=== PATIENT | female | born 1950 | race Caucasian/White ===

== ENCOUNTER 2023-10-12 17:41 | Inpatient (IN) ==
[2023-10-12] MEDS ORDERED: Patient's HEIGHT &/or WEIGHT Needed SCH (18:48)
--- NOTE | 2023-10-12 19:29 | Emergency Department Note ---
History of Present Illness General Chief complaint: Fall Stated complaint: FELL, LT ANKLE PAIN, HIP PAIN Time Seen by Provider: 10/12/23 19:07 History of Present Illness Maximum Pain Intensity: 4 This is a 72-year-old female that presents to the emergency department via private vehicle with complaints of "fell, left ankle pain, left hip pain". The patient notes earlier today around 4:45 PM she slipped on ice and fell. She notes pain to the left lateral hip which is minimal and significant left ankle pain. She denies striking the head or loss of consciousness. No headache or neck pain. No chest pain or abdominal pain. No back pain. Patient did take 3 Advil tablets prior to arrival. Current pain 12/01. She cannot bear weight to the left lower extremity noting the ankle pain. Home Medications Medication Instructions Recorded Confirmed Type amlodipine 5 mg tablet 5 mg PO QAM 10/12/23 10/12/23 History atenolol 50 mg tablet 50 mg PO QAM 10/12/23 10/12/23 History biotin 10 mg tablet 10 mg PO QAM 10/12/23 10/12/23 History buspirone 10 mg tablet 10 mg PO AMPM 10/12/23 10/12/23 History hydroxyzine HCl 50 mg tablet 50 mg PO BID PRN anxiety and 10/12/23 10/12/23 History insomnia ounoszdphaky-wdchkpfy-ikjhc acid 1 cap PO QAM 10/12/23 10/12/23 History 400 mcg-vitamin K 80 mcg capsule (Multi For Her 50 Plus) omega 3-osj-dnq-fish oil 1,200 mg 1 cap PO QPM 10/12/23 10/12/23 History (144 mg-216 mg) capsule (Fish Oil) peg 400-propylene glycol (PF) 0.4 1 drp ophthalmic (eye) BID PRN Dry 10/12/23 10/13/23 History %-0.3 % eye drops in a dropperette Eyes (Systane (PF)) trazodone 100 mg tablet 100 mg PO HS 10/12/23 10/12/23 History vitamins A,C,J-zpvn-gzmycf 4,296 1 cap PO QPM 10/12/23 10/12/23 History mcg-226 mg-90 mg capsule (PreserVision AREDS) calcium carbonate 500 mg calcium 500 mg PO QAM 10/13/23 10/13/23 History (1,250 mg) tablet Allergies Allergy/AdvReac Type Severity Reaction Status Date / Time No Known Allergies Allergy Unknown Verified 10/13/23 00:00 Past Med/Surg History Medical History Hypertension Sleep disorder Anxiety Surgical History History of orthopedic surgery Rotator cuff repair, wrist ORIF, hand fracture Social History Smoking Status: Former smoker Tobacco Type: Cigarettes Preferred Language: Albanian Feels Safe at Home: Yes Review of Systems A total of 10 systems reviewed and were otherwise negative Physical Exam Vital Signs Vital Signs - 24 hr 10/12/23 18:48 10/13/23 00:08 Temperature 37.2 C Temperature Source Temporal Artery Scan Pulse Rate 62 Pulse Rate [Finger] 87 Respiratory Rate 18 18 Respiratory Effort / Characteristics Non-Labored Non-Labored Spontaneous Respiratory Depth Normal Normal Respiratory Pattern Regular Blood Pressure 170/77 H Blood Pressure [Left Arm] 154/84 H Blood Pressure Mean 108 Blood Pressure Mean [Left Arm] 107 Pulse Oximetry 98 97 Oxygen Delivery Method Room Air Room Air Sepsis Recent Fever Within 48 Hours No Sepsis New/Unexplained Change in Mental Status No Sepsis Action Taken by Nursing No Action Required VITAL SIGNS - Vital signs and nursing notes were reviewed. Stable and afebrile. GENERAL -72-year-old female appearing her stated age who is in no acute distress. Communicates well with provider and answers questions appropriately. SKIN -circumferential edema to the left ankle joint. No break in the integument. No deformity. HEAD - NC/AT. EYES -no hyphema. No subconjunctival hemorrhage. LUNGS - CTA CARDIAC - RRR EXTREMITIES - No clubbing or peripheral cyanosis. No pretibial edema present. Skin as above. Patient is tender throughout the left ankle joint diffusely. Minimal left lateral hip tenderness to palpation. Left lower extremity appropriately warm well-perfused. Left dorsalis pedis pulse within normal limits. Cap refill of all toes of the left foot within normal limits. +5/5 strength noted in UE/LE bilaterally. NEUROLOGIC - Cranial nerves II through XII grossly intact. Sensory intact throughout the left lower extremity without deficit. PSYCH - A&O, and cooperates fully with examiner. Pt is very pleasant and interacts well with examiner. Course Administered Medications Discontinued Medications Ondansetron HCl (Ondansetron 4 Mg Od Tab) 4 mg PO NOW STA Stop: 10/12/23 20:57 Last Admin: 10/12/23 21:05 Dose: 4 mg Documented By: LEWIS Oxycodone HCl (Oxycodone Hcl Ir 5 Mg Tab (Immediate Release)) 5 mg PO NOW STA Stop: 10/12/23 20:57 Last Admin: 10/12/23 21:06 Dose: 5 mg Documented By: LEWIS Medical Decision Making Laboratory Data 10/13/23 00:06 10/13/23 00:06 Imaging Data My Impression: Per my interpretation: Pelvis/hip: No fx or dislocation. Tib/fib, ankle, foot: L distal fibular fracture, L medial malleolus fracture. No dislocation. MDM Narrative Patient was seen and evaluated as above in room D05. Review was performed of triage nursing notes and vital signs. I did review pertinent previous visits and patient history. After obtaining a thorough history and physical examination the above work up was performed. Patient presents to us today status post slip on ice with resultant fall. She has pain in her left hip minimally but significant pain in her left ankle. She is well-appearing and nontoxic on exam but appears to be in pain. Options of care were discussed with the patient. Several analgesic options discussed and she elected to hold off at the present time pending x-rays. X- rays were then ordered of the pelvis/left hip, tip/fib, left ankle, left foot. Per mitral rotation the left hip is without fracture or dislocation. Per review of the left lower extremity radiographs there is a left medial malleolus fracture and left distal fibular fracture. This is not an open injury. She is neurovascularly intact. Patient was amenable to oral analgesia prior to splint placement. She was given oral oxycodone for pain. She notes sometimes this makes her nauseated therefore was given oral ondansetron. She did have some relief of pain. Patient was placed in the well-padded posterior short leg splint with stirrup with good fit. She was neurovascularly intact post splint placement. Ambulatory trial was then performed with crutches/walker and unfortunately patient at this time feels that the upper extremities are weak/tired and does not feel using the crutches/walker at this time are possible. I do believe that she has an increased fall risk at the present time to try and send her home with these ambulatory devices in her current state would be potentially dangerous and result in further falls. I do believe that she would benefit from inpatient management for further assessment. Case discussed with the hospitalist service, Dr. Hayes. Please refer to further documentation regarding her stay. Formal x-ray report will be available in the a.m. Laboratory studies ordered and are pending at this time noting the admission status. GCS: 15 In the evaluation and treatment of this patient the following differential diagnoses were entertained: Fracture, dislocation, subluxation, contusion, sprain, strain, among others Impression & Plan Fall, Closed left ankle fracture Discharge Plan Visit Data Chief Complaint: Fall Stated Complaint: FELL, LT ANKLE PAIN, HIP PAIN ED Provider: Sondra Castillo ED Midlevel Provider: Kenny Go Discharge Problem: Fall, Closed left ankle fracture Patient Disposition: Admitted As Inpatient Condition: Good Forms Stand Alone Forms: My [facility] [employer] Prescriptions Prescriptions: No Action hydroxyzine HCl 50 mg tablet 50 mg PO BID PRN (Reason: anxiety and insomnia) atenolol 50 mg tablet 50 mg PO QAM amlodipine 5 mg tablet 5 mg PO QAM trazodone 100 mg tablet 100 mg PO HS buspirone 10 mg tablet 10 mg PO AMPM omega 9-fyj-qxs-fish oil [Fish Oil] 1,200 (144-216) mg Capsule 1 cap PO QPM Multi For Her 50 Plus 400-80 mcg Capsule 1 cap PO QAM PreserVision AREDS 4,296 mcg-226 mg-90 mg Capsule 1 cap PO QPM biotin 10 mg Tablet 10 mg PO QAM Systane (PF) 0.4-0.3 % Dropperette 1 drp OPHTHALMIC (EYE) BID PRN (Reason: Dry Eyes) calcium carbonate [Calcium 500] 500 mg calcium (1,250 mg) Tablet 500 mg PO QAM Referrals Referrals: Magy Valles DO [Primary Care Provider] -
--- NOTE | 2023-10-12 20:55 | Emergency Department Note ---
ED Visit Note I was consulted by the Advanced Practice Provider, Kenny Go. I performed a substantive portion of the visit. This includes aspects of: History: Patient is a 72-year-old female presenting with left ankle pain after fall from standing. Patient states that she had a mechanical fall after slipping on ice and landed on her left hip and left knee. She twisted her ankle and felt a pop. She has been unable to ambulate secondary to immense left ankle pain since the fall. Denies striking her head or loss of consciousness. MDM: - Xray of ankle shows fracture - Patient placed in short leg leg splint and ankle stirrup. Attempted nonweightbearing on crutches and then with a walker, but patient was unable to be nonweightbearing with these assistive devices. Will admit for orthopedic consultation and further evaluation and management. .
[2023-10-12] MEDS: ONDANSETRON 4 MG OD TAB PO STA (21:05)
[2023-10-12] MEDS: oxyCODONE HCL IR 5 MG TAB (IMMEDIATE RELEASE) PO STA (21:06)
[2023-10-13 00:25] LABS: Basophils # (auto) 0.07 K/uL (0.00-0.20); Basophils % (auto) 0.5 %; Eosinophils # (auto) 0.04 K/uL (0.00-0.50); Eosinophils % (auto) 0.3 %; Hematocrit (blood only) 40.9 % (37.0-47.0); Hemoglobin 13.8 g/dl (12.0-16.0); Immature Granulocytes # (auto) 0.07 K/uL (0.01-0.20); Immature Granulocytes % (auto) 0.5 %; Lymphocytes # (auto) 2.86 K/uL (1.20-3.40); Lymphocytes % (auto) 20.5 %; Mean Corpuscular Hemoglobin 30.2 pg (25.0-34.0); Mean Corpuscular Hgb Conc 33.7 g/dL (32.0-36.0); Mean Corpuscular Volume 89.5 fL (80.0-100.0); Mean Platelet Volume 9.9 fL (9.4-12.4); Monocytes # (auto) 0.73 K/uL (0.11-0.59); Monocytes % (auto) 5.2 %; Neutrophils # (auto) 10.21 K/uL (1.40-6.50); Platelet Count 357 K/uL (130-400); RDW Coefficient of Variation 14.4 % (11.5-14.5); RDW Standard Deviation 46.4 fL (36.4-46.3); Red Blood Count 4.57 M/uL (4.20-5.40); White Blood Count 13.98 K/ul (4.8-10.8)
[2023-10-13 00:43] LABS: Alanine Aminotransferase 19 U/L (7-52); Albumin Globulin Ratio 1.3 (0.9-2); Albumin Level 4.4 gm/dl (3.4-5.0); Alkaline Phosphatase 62 U/L (34-104); Anion Gap 8 (3-11); Aspartate Aminotransferase 23 U/L (13-39); BUN Creatinine Ratio 18.1 (10-20); Bilirubin,Total 0.5 mg/dl (0.2-1.0); Blood Urea Nitrogen 15 mg/dl (6-23); Calcium 10.1 mg/dl (8.6-10.3); Carbon Dioxide 25 mmol/L (21-32); Chloride 104 mmol/L (98-107); Est GFR (African American) 81.7 ml/min; Est GFR (Non-African American) 70.4 ml/min; Globulin 3.3 gm/dl (2.5-4.0); Glucose 131 mg/dl (70-99(Fasting)); Sodium 137 mmol/L (136-145); Total Protein 7.7 gm/dl (6.0-8.3)
--- NOTE | 2023-10-13 01:06 | History & Physical Report ---
Date of Service October 13, 2023 Assessment & Plan (1) Closed left ankle fracture: Plan: 72-year-old female with past medical history significant for prediabetes, hypertension, angiomyolipoma of left kidney, restless leg syndrome, depression, anxiety, s/p fall on the ice on the left side and found to have left ankle fracture. Patient states she is unsteady because she thinks she has plantar fasciitis of the left foot. States that she is prone to fall. She did not hit her head. No loss of consciousness. Currently has some headache says because she did not eat anything today. No blurred visions. No earache. No runny nose. No sore throat. No cough. No fevers. No chest pain. No shortness of breath. Currently no nausea. No abdominal pain. Normal bowel and bladder movements. Hemodynamics are stable. Closed left ankle fracture Mechanical fall S/p cast Having ambulatory dysfunction Pain control N.p.o. for now IV fluids Consult Ortho in a.m. for further recommendations Hypertension On amlodipine and atenolol Will monitor History of depression Anxiety On buspirone and trazodone Prediabetes Will follow HbA1c levels DVT prophylaxis Lovenox Disposition Medical floor Full code History of Present Illness Chief Complaint: Fall. Left ankle fracture Primary Care Provider: Magy Valles, 72-year-old female with past medical history significant for prediabetes, hypertension, angiomyolipoma of left kidney, restless leg syndrome, depression, anxiety, s/p fall on the ice on the left side and found to have left ankle fracture. Patient states she is unsteady because she thinks she has plantar fasciitis of the left foot. States that she is prone to fall. She did not hit her head. No loss of consciousness. Currently has some headache says because she did not eat anything today. No blurred visions. No earache. No runny nose. No sore throat. No cough. No fevers. No chest pain. No shortness of breath. Currently no nausea. No abdominal pain. Normal bowel and bladder movements. Hemodynamics are stable. Past medical history. As mentioned above Past surgical history. Right shoulder arthroscopy. Breast implants. Colonoscopy. EGD. Mandible surgery. Bilateral cataract removal. Social history. . Quit smoking . Smoked 0.7 pack a day for 41 years. Alcohol rarely. No drug use. Family history. Father had alcoholism. Hypertension. Cholesterol. Mother had hypertension. Alzheimer's disease. Brother has seizures. Allergies Allergy/AdvReac Type Severity Reaction Status Date / Time No Known Allergies Allergy Unknown Verified 10/13/23 00:00 Home Medications Medication Instructions Recorded Confirmed Type amlodipine 5 mg tablet 5 mg PO QAM 10/12/23 10/12/23 History atenolol 50 mg tablet 50 mg PO QAM 10/12/23 10/12/23 History biotin 10 mg tablet 10 mg PO QAM 10/12/23 10/12/23 History buspirone 10 mg tablet 10 mg PO AMPM 10/12/23 10/12/23 History hydroxyzine HCl 50 mg tablet 50 mg PO BID PRN anxiety and 10/12/23 10/12/23 History insomnia jycfhnocjjtq-cqtlsqct-nnhzn acid 1 cap PO QAM 10/12/23 10/12/23 History 400 mcg-vitamin K 80 mcg capsule (Multi For Her 50 Plus) omega 1-dmy-wtv-fish oil 1,200 mg 1 cap PO QPM 10/12/23 10/12/23 History (144 mg-216 mg) capsule (Fish Oil) peg 400-propylene glycol (PF) 0.4 1 drp ophthalmic (eye) BID PRN Dry 10/12/23 10/13/23 History %-0.3 % eye drops in a dropperette Eyes (Systane (PF)) trazodone 100 mg tablet 100 mg PO HS 10/12/23 10/12/23 History vitamins A,C,E-bufo-uaywdl 4,296 1 cap PO QPM 10/12/23 10/12/23 History mcg-226 mg-90 mg capsule (PreserVision AREDS) calcium carbonate 500 mg calcium 500 mg PO QAM 10/13/23 10/13/23 History (1,250 mg) tablet Past Med/Surg History Medical History Hypertension Sleep disorder Anxiety Surgical History History of orthopedic surgery Rotator cuff repair, wrist ORIF, hand fracture Social History Smoking Status: Former smoker Tobacco Type: Cigarettes Hx Alcohol Use: Yes Alcohol type: wine Hx Substance Use: No Preferred Language: Peruvian Silk Soaker Required: No Beliefs That Will Affect Care: None Current Living Situation: Spouse and Family Feels Safe at Home: Yes Assistive Devices: Glasses Review of Systems Review of Systems: All systems reviewed & are unremarkable except as noted in HPI & below Physical Exam Physical Exam: General- Not in distress Head- atraumatic Eyes- PERRL. ENT- oropharynx clear Neck- supple, no JVD. Lungs- clear to auscultation no wheezing or crackles Heart- regular rhythm; no murmur, no gallop. Abdomen- normal bowel sounds, soft, nontender, no distension. Extremities- Left lower extremity in cast. Neuro- alert, oriented PERRL, no facial palsy; no dysarthria; obeys simple commands. Skin- warm & dry Results & Data Results & Data Vital Signs (Past 12 Hours) Vital Signs Temp Pulse Pulse Resp BP BP Pulse Ox 10/13/23 00:08 87 18 154/84 H 97 10/12/23 18:48 37.2 C 62 18 170/77 H 98 O2 Del Method 10/13/23 00:08 Room Air 10/12/23 18:48 Room Air Diagnostic Findings Laboratory Results WBC 13.98 K/ul (4.8-10.8) H 10/13/23 00:06 RBC 4.57 M/uL (4.20-5.40) 10/13/23 00:06 Hgb 13.8 g/dl (12.0-16.0) 10/13/23 00:06 Hct 40.9 % (37.0-47.0) 10/13/23 00:06 MCV 89.5 fL (80.0-100.0) 10/13/23 00:06 MCH 30.2 pg (25.0-34.0) 10/13/23 00:06 MCHC 33.7 g/dL (32.0-36.0) 10/13/23 00:06 RDW Std Deviation 46.4 fL (36.4-46.3) H 10/13/23 00:06 RDW Coeff of Bj 14.4 % (11.5-14.5) 10/13/23 00:06 Plt Count 357 K/uL (130-400) 10/13/23 00:06 MPV 9.9 fL (9.4-12.4) 10/13/23 00:06 Immature Gran % (Auto) 0.5 % 10/13/23 00:06 Neut % (Auto) 73.0 % 10/13/23 00:06 Lymph % (Auto) 20.5 % 10/13/23 00:06 [place] % (Auto) 5.2 % 10/13/23 00:06 Eos % (Auto) 0.3 % 10/13/23 00:06 Baso % (Auto) 0.5 % 10/13/23 00:06 Neut # (Auto) 10.21 K/uL (1.40-6.50) H 10/13/23 00:06 Lymph # (Auto) 2.86 K/uL (1.20-3.40) 10/13/23 00:06 [place] # (Auto) 0.73 K/uL (0.11-0.59) H 10/13/23 00:06 Eos # (Auto) 0.04 K/uL (0.00-0.50) 10/13/23 00:06 Baso # (Auto) 0.07 K/uL (0.00-0.20) 10/13/23 00:06 Immature Gran # (Auto) 0.07 K/uL (0.01-0.20) 10/13/23 00:06 Sodium 137 mmol/L (136-145) 10/13/23 00:06 Potassium 4.0 mmol/L (3.5-5.1) 10/13/23 00:06 Chloride 104 mmol/L (98-107) 10/13/23 00:06 Carbon Dioxide 25 mmol/L (21-32) 10/13/23 00:06 Anion Gap 8 (3-11) 10/13/23 00:06 BUN 15 mg/dl (6-23) 10/13/23 00:06 Creatinine 0.83 mg/dl (0.6-1.2) 10/13/23 00:06 Est Cr Clr Drug Dosing Not Reportable 10/13/23 00:06 Est GFR ( Amer) 81.7 ml/min 10/13/23 00:06 Est GFR (Non-Af Amer) 70.4 ml/min 10/13/23 00:06 BUN/Creatinine Ratio 18.1 (10-20) 10/13/23 00:06 Glucose 131 mg/dl (70-99(Fasting)) H 10/13/23 00:06 Calcium 10.1 mg/dl (8.6-10.3) 10/13/23 00:06 Total Bilirubin 0.5 mg/dl (0.2-1.0) 10/13/23 00:06 AST 23 U/L (13-39) 10/13/23 00:06 ALT 19 U/L (7-52) 10/13/23 00:06 Alkaline Phosphatase 62 U/L (34-104) 10/13/23 00:06 Total Protein 7.7 gm/dl (6.0-8.3) 10/13/23 00:06 Albumin 4.4 gm/dl (3.4-5.0) 10/13/23 00:06 Globulin 3.3 gm/dl (2.5-4.0) 10/13/23 00:06 Albumin/Globulin Ratio 1.3 (0.9-2) 10/13/23 00:06 Code Status & VTE Plan VTE Prophylaxis Plan VTE Prophylaxis will be ordered: Yes
[2023-10-13] MEDS: HYDROmorphone INJ 0.5 MG/0.5 ML SYR IV STA (01:31)
[2023-10-13] MEDS ORDERED: POLYETHYLENE (MIRALAX) 17 GM PACK PO PRN (02:31)
[2023-10-13] MEDS ORDERED: ARTIFICIAL TEARS OP PRN (02:52)
[2023-10-13] MEDS: SODIUM CHLORIDE 0.9% 1,000 ML IV SCH (05:18)
[2023-10-13] MEDS: ENOXAPARIN INJ 40 MG/0.4 ML SYR SQ SCH (06:14)
--- NOTE | 2023-10-13 06:54 | XRay Report ---
XR hip LT 2V w pelvis HISTORY: 72 years-old Female Fall, L hip pain acute pain in the pelvis and left hip status post fall COMPARISON: None TECHNIQUE: AP view the pelvis with 2 views of the left hip FINDINGS: There is mild osteoarthritis of the hips. No acute fracture, dislocation or avascular necrosis. Unrem arkable soft tissues. IMPRESSION: No acute fracture or dislocation. ACT 112: Negative or not required by law. The above report was generated using voice recognition software. It may contain grammatical, syntax o r spelling errors. Electronically signed by: Scot Cordoba M.D. 10/13/2023 6:53 AM
--- NOTE | 2023-10-13 06:59 | XRay Report ---
XR ankle LT min 3V routine, XR tibia fibula LT 2V, XR foot LT min 3V routine HISTORY: 72 years-old Female Fall, L lower extremity pain/injury acute pain of the foot, ankle, left /tibia and fibula status post fall COMPARISON: None TECHNIQUE: 2 views of the left ankle with 2 views of the left foot and 2 views of the left tibia and fibula. FINDINGS: ANKLE: There is acute comminuted distal fibular fracture which demonstrates mild apex medial angulation with 7 mm lateral displacement. There is an acute minimally displaced medial malleolar fracture. Moderate soft tissue swelling. Mild widening of the distal tibiofibular syndesmosis. Demineralized appearance of the bones. Limited exam secondary to positioning. FOOT: Acute nondisplaced fracture which is possibly incomplete involving the proximal metaphyseal aspect of the third metatarsal. Demineralized appearance of the bones with mostly mild multifocal osteoarthrit is. Subtle dorsal cortical fracturing of the talar neck. TIBIA/FIBULA: No additional acute fracture or dislocation. IMPRESSION: 1. Acute distal fibular and medial malleolar fractures as above. 2. Acute nondisplaced third metatarsal fracture. 3. Subtle dorsal cortical fracture of the talar neck. ACT 112: Negative or not required by law. The above report was generated using voice recognition software. It may contain grammatical, syntax o r spelling errors. Electronically signed by: Scot Cordoba M.D. 10/13/2023 6:57 AM
[2023-10-13 07:52] LABS: Basophils # (auto) 0.08 K/uL (0.00-0.20); Basophils % (auto) 0.9 %; Eosinophils # (auto) 0.15 K/uL (0.00-0.50); Eosinophils % (auto) 1.7 %; Hematocrit (blood only) 35.7 % (37.0-47.0); Hemoglobin 12.1 g/dl (12.0-16.0); Immature Granulocytes # (auto) 0.02 K/uL (0.01-0.20); Immature Granulocytes % (auto) 0.2 %; Lymphocytes # (auto) 2.86 K/uL (1.20-3.40); Lymphocytes % (auto) 32.5 %; Mean Corpuscular Hemoglobin 30.2 pg (25.0-34.0); Mean Corpuscular Hgb Conc 33.9 g/dL (32.0-36.0); Monocytes # (auto) 0.72 K/uL (0.11-0.59); Monocytes % (auto) 8.2 %; Neutrophils # (auto) 4.97 K/uL (1.40-6.50); Neutrophils % (auto) 56.5 %; Platelet Count 293 K/uL (130-400); RDW Coefficient of Variation 14.3 % (11.5-14.5); RDW Standard Deviation 46.6 fL (36.4-46.3); Red Blood Count 4.01 M/uL (4.20-5.40)
--- OUTSIDE RECORDS SUMMARY | 2023-10-13 07:54 | External Medical Summary | Summary of Care ---
Author Name Unknown Organization [facility] Address [address] [facility] [address] Phone [phone] Care Team Providers Care Sharepoint Developer Name Role Phone Magy Valles DO Primary Care Provider [phone] Reason for Visit * Reason Onset Date Comments Follow Up 10/08/2023 Encounter Details Date Type Department Care Team (Late st Contact Info) Description 10/08/2023 Telephone Family Practice [facility] [address] [place] [address] Magy Valles DO [address] [place] [id number] Follow Up Allergies No known active allergiesdocumented as of this encounter (statuses as of 10/08/2023) Medications Medication Sig Dispensed Refills Start Date End Date Status Multiple Vitamins-Minerals (MULTI FOR HER 50+) CAPS Take by mouth. 0 Active [place]-3 Fatty Acids (FISH OIL) 500 MG Capsule Take 1 Capsule by mouth in the morning. 0 Active Systane 0.4-0.3 % Ophthalmic Solution (Polyethyl Glycol-Propyl Glycol) Instill into eye as needed for Dry eyes. 0 Active Biotin 10 MG Oral Capsule Take 1 Capsule by mouth in the morning and 1 Capsule at noon and 1 Capsule before bedtime. 0 Active Calcium Carb-Cholecalcifero l 500-10 MG-MCG Oral Tablet Take by mouth. 0 Active amLODIPine Besylate 5 MG Oral Tablet (Norvasc)Indication s:HTN, goal below 140/90 Take 1 Tablet by mouth in the morning. 90 Tablet 3 02/17/2023 Active busPIRone HCl 10 MG Oral Tablet (Buspar)Indications :DRE (generalized anxiety disorder) Take 1 Tablet by mouth in the morning and 1 Tablet in the evening. 180 Tablet 3 02/17/2023 Active traZODone HCl 100 MG Oral Tablet (Desyrel)Indication s:Insomnia, unspecified type TAKE ONE TABLET BY MOUTH AT BEDTIME 90 Tablet 3 03/21/2023 Active hydrOXYzine HCl 50 MG Oral TabletIndications:I nsomnia, unspecified type TAKE 1 TABLET BY MOUTH TWICE DAILY NEEDED FOR ANXIETY AND INSOMNIA 180 Tablet 1 05/19/2023 05/18/2024 Active Atenolol 50 MG Oral Tablet (Tenormin)Indicatio ns:HTN, goal below 140/90 TAKE ONE TABLET BY MOUTH IN THE MORNING 90 Tablet 2 07/06/2023 Active Amoxicillin 500 MG Oral Capsule (Amoxil) Take 1 capsule by mouth twice daily starting 2 days prior to surgery 14 Capsule 0 07/08/2023 Active Calcium 250 MG Oral Capsule Take by mouth. 0 Active PreserVision AREDS Oral Capsule Take 1 Capsule by mouth in the morning. 0 Active Prevagen 10 MG Oral Capsule (Apoaequorin) Take by mouth. 0 10/08/2023 Active documented as of this encounter (statuses as of 10/08/2023) Active Problems Problem Noted Date Diagnosed Date Angiomyolipoma of left kidney 10/08/2023 Ganglion cyst of dorsum of left wrist 04/13/2023 Other social stressor 02/19/2022 Prediabetes 08/05/2021 Overview: Per Prediabetes protocol HTN, goal below 140/90 10/13/2019 Anxiety state 04/08/2019 Restless leg syndrome 05/15/2010 ADVANCE DIRECTIVE INFORMATION 06/05/2006 Overview: Yes, Patient instructed to provide copy of advance directive for provider to review and to be scanned into Electronic Medical Record Family history of other cardiovascular diseases 04/05/2002 Overview: ICD-10 update of inactive term ADJ DISORDER W/DEPRES MOOD 01/18/1998 documented as of this encounter (statuses as of 10/08/2023) Resolved Problems Problem Noted Date Diagnosed Date Resolved Date History of colon polyps 11/25/2018 05/0 01/2020 Overview: Historical. Chronic tension-type headach e, not intractable 05/01/2016 05/19/2017 Migraine without aura and wi thout status migrainosus, not intractable 05/01/2016 08/20/2021 Benign neoplasm of colon 09/18/200811/2018 Overview: benign polyp--repeat 5 years --> 2013 WNL. Personal history of other di sorder of urinary system 06/16/2007 05/19/2017 Headache 06/05/2006 05/19/2017 Overview: ICD-10 update of inactive term Tobacco use disorder 01/18/1998 019 Postmenopausal bleeding 11/23 documented as of this encounter (statuses as of 10/08/2023) Immunizations Name Administration Dates Next Due COVID-19 mRNA, LNP-s, No Pre serve, 2-Dose Series ([employer]) 07/23/2021,11/12/2020,10/17/2020 Covid-19, Mrna, Lnp-s, Pf, B ivalent, 30 Mcg, IM, 12 yrs and above (Pfizer) 09/09/2022 Pneumococcal Conjugate Vacc, 13 Valent (Prevnar) 05/15/2016 Pneumococcal Polysaccharide PPV23 (Pneumovax) 05/25/2018,12/07/2008 Season Influenza, Cell Cultu re, 18+ Yrs, With Preserv (Flucelvax) 04/21/2014 Season Influenza, Quad, PF, Adjuvanted, 65+ Yrs, IM (FLUAD) 05/21/2020 Seasonal Influenza, PF, 6 M & above, IM , (FluLaval or Fluzone) 05/25/2018,05/19/2017 Seasonal Influenza, Quadriva lent Hd (Fluzone Hd) 05/16/2022,06/06/2021 Seasonal Influenza, Quadriva lent, No Preserve, IM 05/15/2016 Seasonal Influenza, Split, I IV3, With Preserve, Inj 05/11/2015,05/10/2013,09/27/2012,05/15 Seasonal Influenza, Trivalen t, Adjuvanted, 65+ yrs 06/06/2020,10/13/2019 TDAP (age 10 and older)(Boostrix) 12/07/2018 TDAP (age 11 and older)(Adacel) 12/07/2008 Varicella Zoster Vaccine (Adult) 05/19/2017 Zoster Vaccine Recombinant (Shingrix) 04/08/2019 ,12/23/2018 documented as of this encounter Social History Tobacco Use Types Packs/Day Years Used Date Smoking Tobacco: Former Cigarettes 0.7 41 Q uit: 06/29/2018 Smokeless Tobacco: Never Comments:smoked since age 20 ; stopped 18 months ago Alcohol Use Standard Drinks/Week Comments Yes 0 (1 standard drink = 0.6 oz pur e alcohol) very rare AUDIT-C Answer Date Recorded Frequency of Alcohol Consumption 2-3 times a wee k 02/21/2020 Average Number of Drinks 1 or 2 020 Frequency of Binge Drinking Not on file 01/24 PHQ-2 Answer Date Recorded PHQ Adult Total Score 1 11/22/2021 Hunger Vital Sign Answer Date Recorded Within the past 12 months, y ou worried that your food would run out before you got the money to buy more. Never true 02/17/20 23 Within the past 12 months, t he food you bought just didn't last and you didn't have money to get more. Never true 02/16/2023 Sex and Gender Information Value Date Recorded Sex Assigned at Female 02/21/2020 12:53 PM EDT Gender Identity Female 02/21/2020 12:53 PM EDT Sexual Orientation Straight 02/21/2020 12 :53 PM EDT Job Start Date Occupation Industry Not on file Not on file Not on file documented as of this encounter Miscellaneous Notes * Telephone Encounter - Magy Valles DO - 10/08/2023 5:54 PM EST ----- Message from Gayla Lopez MD sent at 10/08/2023 8:51 AM EST ----- Regarding: abnl mri Magy please see the attached partial result of MRI of L-spine regarding complex renal lesion. Patient reports that she is not aware of this radiographic finding of spinal canal and neural foraminal stenosis as described, most prominent at L2-L3. 3. Rightward curvature of the lumbar spine. 4. Complex lesion within the lower pole the left kidney, similar in size to the prior MRI dated 08/25/2019. Please refer to the CT abdomen and pelvis report dated 12/10/2015. 5. Additional findings as described above. documented in this encounter Plan of Treatment Upcoming Encounters Date Type Department Care Team (Late st Contact Info) Description 10/14/2023 3:00 PM EST Office Visit Podiatry [facility] [address] [facility] [place] [address] Sondra Basurto DPM [address] [place] [address] 2023 8:00 AM EST Office Visit [facility] [address] [facility] [place] [address] Janay Grissom PA-C [address] [facility] [place] [address] 12/10/2023 10:45 AM EDT Office Visit Orthopaedics Spine [facility], [place] [address] [place] [address] Federico Garcia MD [address] [place] [address] 01/21/2024 10:00 AM EDT Office Visit Neurology [facility] [address] [facility] [place] [address] Gayla Lopez MD [address] [facility] [place] [address] 03/01/2024 9:00 AM EDT [facility] [place] [address] Magy Valles DO [address] [facility] [place] [address] 06/13/2024 9:30 AM EDT Imaging Radiology [address], [place] [address] [facility] [place] [address] Scheduled Procedures Name Priority Associated Diagnoses Date/Ti me COLONOSCOPY FLEXIBLE PROXIMAL DIAGNOSTIC Recall Hx of colonic polyps Health Maintenance Due Date Last Done Comments LUNG CANCER SCREENING - USE SMARTSET 85315 2000 Depression Screening 11/22/2022 11/22/2021 COVID-19 Vaccine ( season) 2023 09/09/2022, 07/23/2021, 11/12/2020, Additional history exists Influenza Vaccine (FLU shot) (#1) 2023 05/16/2022, 06/06/2021, 06/06/2020, Additional history exists GFR 02/17/2024 02/16/2023, 03/2021, 06/12/2020, Additional history exists HbA1c 02/17/2024 02/16/2023, 01/23, 07/31/2021, Additional history exists COLONOSCOPY-EVERY 5 YRS AGES 18-100 05/10/2024 05/10/2019, 05/10/2019, 01/24/2014, Additional history exists Mammogram 06/10/2024 06/10/2023, 05/24, 06/09/2022, Additional history exists DXA Scan 09/30/2024 09/30/2021, 02/2022, 04/12/2014, Additional history exists Albumin/Creatinine Ratio 02/14/2025 02/14/2022 Lipid Panel 06/12/2025 06/12/2020, 04/24, 05/15/2010, Additional history exists DTaP,Tdap,and Td Vaccines (3 - Td or Tdap) 12/07/2028 12/07/2018, 12/07/2008 Pneumococcal Vaccine: 65+ Years Completed 05/25/2018, 05/15/2016, 12/07/2008 Zoster Vaccines Completed 04/08/2019, 05/0 09/2018, 05/19/2017 GARDASIL-HPV IMMUNIZATION SERIES Aged Out No longer eligible based on patient's age to complete this topic Hepatitis B Aged Out No longer eligi ble based on patient's age to complete this topic MENINGOCOCCAL (MENACTRA/MENVEO) Aged Out No longer eligible based on patient's age to complete this topic documented as of this encounter Medical Devices Implanted Type Area Data Coordinator Device Identifier Shelf Expiration Date Model / Serial / Lot Implant-01/22/2005 Implanted:Qty: 2 on 01/22/2005 Breast Description:Saline breast im plants Lens Intraoc 13.5 - [id number] - [id number] Implanted:Qty: 1 on 09/30/2016 by Malcolm Hartman MD at [facility] Right: Eye [employer] 03/23/2021 [id number] / [id number] / [id number] Lens Intraoc 13.5 - [id number] - [id number] Implanted:Qty: 1 on 10/14/2016 by Malcolm Hartman MD at [facility] Left: Eye [employer] 04/23/2021 [id number] / [id number] / [id number] Biocomposite Swivelock Suture [place] Implanted:Qty: 2 on 12/07/2017 by Corinna Servin DO at [facility] Right: Shoulder [employer] 04/23/2019 [id number] T-2 / / [id number] Screw 2.7x14mm - [id number] Implanted:Qty: 1 on 05/16/2022 by Selwyn Donato MD at [facility] Left: Wrist SAVAGE : ORTHOPAEDICS [id number] / / documented as of this encounter Advance Directives Latest Code Status on File Code Status Date Activated Date Inactivated Comments Full Code 05/16/2022 1:44 PM 05/16/2022 9:47 PM This order reflects the patients wishes and were consensually agreed upon. Question Answer Comments Discussion of Advance Directives occurred with: Not Discussed due to patient's condition Does the patient have a Living Will? No Does the patient have Health Care Power of Manager Marketing Sales? No Code Status History Code Status Date Activated Date Inactivated Comments Full Code 12/07/2017 10:08 AM 12/07/2017 3:46 PM This order reflects the patients wishes and were consensually agreed upon. Full Code 10/14/2016 10:37 AM 10/14/2016 4:52 PM This order reflects the patients wishes and were consensually agreed upon. Full Code 09/30/2016 9:57 AM 09/30/2016 4:30 PM This or patrice reflects the patients wishes and were consensually agreed upon. Care Teams Sharepoint Developer Relationship Specialty Start Date End Date Magy Valles DO [address] [place] [address] PCP - General Family Medicine 12/12/15 documented as of this encounter
--- OUTSIDE RECORDS SUMMARY | 2023-10-13 07:55 | External Medical Summary | Summary of Care ---
Author Name Unknown Organization [facility] Address [address] [place] [address] Phone [phone] Care Team Providers Care Museum Exhibit Designer Name Role Phone Magy Valles DO Primary Care Provider [phone] Reason for Referral * Evaluate & Treat - Unlimited Visits (Within 30 days (routine)) - Pending Review Specialty Diagnoses / Procedures Referred By Contac t Referred To Contact Podiatry Diagnoses Pain of left heel Gayla Lopez MD [address] [place] [address] Referral ID Status Reason Start Date Expiration Date Visits Requested Visits Authorized [id number] Pending Review Specialty Services Required 10/08/[phone] Question Answer Referral Priority Within 30 days (routine) Where should this appointment be scheduled? Jori Which condition are you referring this patient for? General Podiatry/Other Comments Left heel pain suspect plantar fasciitis * Evaluate & Treat - Unlimited Visits (Within 30 days (routine)) - Pending Review Specialty Diagnoses / Procedures Referred By Contac t Referred To Contact Physical Therapy / Physical Medicine And Rehab Diagnoses Lumbosacral radiculopathy at L5 Gayla Lopez MD [address] [place] [address] Referral ID Status Reason Start Date Expiration Date Visits Requested Visits Authorized [id number] Pending Review Specialty Services Required 10/08/[phone] Question Answer Referral Priority Within 30 days (routine) Where should this appointment be scheduled? Jori Comments Left L5 radic eval and advise re home exercise program * Evaluate & Treat - Unlimited Visits (Within 30 days (routine)) - Pending Review Specialty Diagnoses / Procedures Referred By Keven pate Referred To Contact Neuro/Ortho Surgery - Spine. / Neurological Surgery Diagnoses Lumbosacral radiculopathy at L5 Gayla Lopez MD [address] [place] [address] Referral ID Status Reason Start Date Expiration Date Visits Requested Visits Authorized [id number] Pending Review Specialty Services Required 10/08/[phone] Question Answer Referral Priority Within 30 days (routine) Where should this appointment be scheduled? Jori Select spine region: Neck - Cervical Do you have any recent complete loss of bladder or bowel function? No Comments Left l5 radic on emg and clinically mri relatively unremarkable at that level. My inclination given absent prgressive neurologic deficit Dr Winston only Reason for Visit * Reason Comments NEW PATIENT Encounter Details Date Type Department Care Team (Late st Contact Info) Description 10/08/2023 8:00 AM EST Office Visit Neurology [address] [place] [address] Gayla Lopez MD [address] [place] [address] [place] [address] Lumbosacral radiculopathy at L5*; Pain of left heel Allergies No known active allergiesdocumented as of this encounter (statuses as of 10/08/2023) Medications Medication Sig Dispensed Refills Start Date End Date Status Multiple Vitamins-Minerals (MULTI FOR HER 50+) CAPS Take by mouth. 0 Active Salol-3 Fatty Acids (FISH OIL) 500 MG Capsule Take 1 Capsule by mouth in the morning. 0 Active Systane 0.4-0.3 % Ophthalmic Solution (Polyethyl Glycol-Propyl Glycol) Instill into eye as needed for Dry eyes. 0 Active Biotin 10 MG Oral Capsule Take 1 Capsule by mouth in the morning and 1 Capsule at noon and 1 Capsule before bedtime. 0 Active Calcium Carb-Cholecalcife rol 500-10 MG-MCG Oral Tablet Take by mouth. 0 Active amLODIPine Besylate 5 MG Oral Tablet (Norvasc)Indicati ons:HTN, goal below 140/90 Take 1 Tablet by mouth in the morning. 90 Tablet 3 02/17/2023 Active busPIRone HCl 10 MG Oral Tablet (Buspar)Indicatio ns:DRE (generalized anxiety disorder) Take 1 Tablet by mouth in the morning and 1 Tablet in the evening. 180 Tablet 3 02/17/2023 Active traZODone HCl 100 MG Oral Tablet (Desyrel)Indicati ons:Insomnia, unspecified type TAKE ONE TABLET BY MOUTH AT BEDTIME 90 Tablet 3 03/21/2023 Active hydrOXYzine HCl 50 MG Oral TabletIndications :Insomnia, unspecified type TAKE 1 TABLET BY MOUTH TWICE DAILY NEEDED FOR ANXIETY AND INSOMNIA 180 Tablet 1 05/19/2023 4 Active Atenolol 50 MG Oral Tablet (Tenormin)Indicat ions:HTN, goal below 140/90 TAKE ONE TABLET BY [...] (Apoaequorin) Take by mouth. 0 10/08/2023 Active buPROPion HCl ER (XL) 300 MG Oral Tablet Extended Release 24 Hour (Wellbutrin XL)Indications:An xiety state TAKE ONE TABLET BY MOUTH DAILY 90 Tablet 0 11/15/2022 4 Discontinued documented as of this encounter (statuses as of 10/08/2023) Active Problems Problem Noted Date Diagnosed Date Ganglion cyst of dorsum of left wrist [...] Date Resolved Date History of colon polyps 11/25/201801/2020 Overview: Historical. Chronic tension-type headach e, not [...] mRNA, LNP-s, No Pre serve, 2-Dose Series ([employer]) 07/23/2021,11/12/2020,10/17/2020 Covid-19, Mrna, Lnp-s, Pf, B ivalent, [...] on file documented as of this encounter Last Filed Vital Signs Vital Sign Reading Time Taken Comments Blood Pressure 126/76 10/08/2023 7:54 AM EST Pulse 62 10/08/2023 7:54 AM EST Temperature 36.8 C (98.2 F) 10/08/2023 7:54 AM ES T Respiratory Rate 16 10/08/2023 7:54 AM EST Oxygen Saturation 98% 10/08/2023 7:54 AM EST Inhaled Oxygen Concentration - - Weight 68 kg (150 lb) 10/08/2023 7:54 AM EST per pt Height - - Body Mass Index 25.75 02/17/2023 3:07 PM EDT documented in this encounter Progress Notes * Gayla Lopez MD - 10/08/2023 8:44 AM EST Images from the original note were not included. CLINIC NOTES Neurology [address] [address] Antionette Russell : 1950 NEUROLOGY OUTPATIENT NOTE 10/08/2023 HISTORY: The patient is referred for consultation by Dr. Magy Valles, who will be receiving a copy of this note. The patient comes today I had performed a nerve conduction asked her to return new line she has a 4year history of multiple falls but she has difficulty recalling why she falls. She has had episodicsciatica right greater than left but none for the last year. In evaluation for pain in her foot andburning in the top in the sole of the left heel she had a nerve conduction EMG which suggested a left L5 radiculopathy. The report is as follows [facility] Neurophysiology Department [place], [place] Test Date: 09/08/2023 Patient: Antionette Russell : 1950 Physician: Gayla Lopez MD Sex: Female Height: 5' 4" Ref Phys: Yoly Abarca DPM ID#: [id number] Weight: 150 lbs. Business Coordinator: Alex Sotelo Patient Complaints: falls x 2 years. sense of lle weakness. Numbness sole of left foot. no signifant back pain Patient History / Exam: weakness primarily left L5, absent ankle jerks, dec lt top of l foot Impression: This study is most consistent with a moderately severe left L5 radiculopathy with active and chronic denervation. There has no convincing evidence of a sensory motor polyneuropathy or focal neuropathy. I have ordered an MRI of the lumbar spine and will see the patient in NCV & EMG Findings: The left peroneal motor response is of decreased amplitude and borderline conduction velocity. The right peroneal motor response is normal. The left posterior tibial motor response is of decreased amplitude and normal conduction velocity. The right posterior tibial motor response is normal. Bilateral sural and superficial peroneal sensory responses are normal. EMG of the left tibialis anterior showed increased insertional activity fibrillation potentials poly phasic units and of increased amplitude and markedly decreased recruitment. EMG of the gluteus medius showed mild increase in amplitudeEMG of lumbar paraspinals was unremarkable MRI of the L-spine did not overtly show discogenic disease at left L5. I have reviewed the images and reports Exam End Date Exam End Time 09/29/2023 7:48 AM MRI L SPINE WO CONTRAST Order: [id number] Status: Final result Visible to patient: Yes (seen) Next appt: 10/14/2023 at 03:00 PM in *Ortho* (Sondra Basurto DPM) Dx: Lumbar radiculopathy 0 Result Notes Details Reading Physician Reading Date Result Priority Danae Mallory MD [phone] 09/30/2023 Narrative & Impression EXAM MRI L SPINE WO CONTRAST09/29/2023 7:48 am HISTORY Low back pain; Neurologic deficit, non-traumatic; LE weakness; Increasing/persistent or sudden onset LE weakness. COMPARISON Comparison is made with the prior MRI dated 08/25/2019. TECHNIQUE Routine protocol MRI of the lumbar spine was performed without the administration of IV gadolinium. FINDINGS For the purposes of this report, there are 5 lumbar type vertebral bodies. Utilizing this counting method, there is transitional lumbosacral anatomy with partial sacralization of the L5 vertebral body. Correlation of this numbering scheme with plain film radiographs is recommended prior to any planned surgical intervention. There is rightward curvature of the lumbar spine. There is multilevel endplate osteophyte formationat T12-L1, L1-L2, and L2-L3. There is intervertebral disc space narrowing at L1-L2 and L2-L3. Thereare prominent endplate degenerative changes at L2-L3, increased from the prior MRI. There are Schmorl's nodes within the T11 and L1 vertebral bodies. There is multilevel facet hypertrophy of the lumbar spine. The vertebral body heights are grossly maintained. There is a tiny annular fissure at L4-L5. The conus medullaris terminates at the level of T12-L1. No definitive distal spinal cord lesion is identified. There is a complex lesion within the lower pole of the left kidney that demonstrates intrinsic T1 hyperintensity and measures 3 cm, similar in size to the prior MRI dated 08/25/2019. At the level of T11-T12, there is minimal disc bulge without significant spinal canal or neural foraminal stenosis. At the level of T12-L1, there is minimal disc bulge without significant spinal canal or neural foraminal stenosis. At the level of L1-L2, there is a mild disc bulge with facet hypertrophy causing mild ventral effacement of the CSF space and mild bilateral neural foraminal stenosis. At the level of L2-L3, there is a posterior disc osteophyte complex with facet hypertrophy and hypertrophy of the ligamentum flavum causing moderate spinal canal stenosis, mild right neural foraminalstenosis, and mild to moderate left neural foraminal stenosis. At the level of L3-L4, there is a disc bulge with facet hypertrophy contributing to mild left neural foraminal stenosis without significant spinal canal stenosis. At the level of L4-L5, there is a disc bulge with facet hypertrophy and hypertrophy of the ligamentum flavum causing mild spinal canal stenosis and mild right neural foraminal stenosis. At the level of L5-S1, there is no significant spinal canal or neural foraminal stenosis. IMPRESSION IMPRESSION 1. 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 2. Multilevel, multifactorial degenerative changes of the lumbar spine with varying degrees of spinal canal and neural foraminal stenosis as described, most prominent at L2-L3. 3. Rightward curvature of the lumbar spine. 4. Complex lesion within the lower pole the left kidney, similar in size to the prior MRI dated 08/25/2019. Please refer to the CT abdomen and pelvis report dated 12/10/2015. 5. Additional findings as described above. Patient denies any incontinence of bowel or bladder. She reports balance issues but she has difficulty committing to what results in falls is unclear if she twists or ankle or just spontaneously losehis balance or knee pain contributes to fall. She does have left heel pain worse with standing on her foot. She has no history of cancer or chemotherapy. She has had multiple lumbar epidural steroidsin the past Past Medical History: Diagnosis Date Adjustment disorder with depressed mood Benign neoplasm of colon 09/18/08 benign polyp--repeat 5 years Diaphragmatic hernia Floaters Hypertension Mucous polyp of cervix Polyp,Cervix Postmenopausal bleeding eval with D+C hyster - dyssynchronous endo Prediabetes 08/05/2021 Per Prediabetes protocol Pyelonephritis 02/27 treated as out pt - was very sick Patient Active Problem List Diagnosis Code ADJ DISORDER W/DEPRES MOOD F43.21 Family history of other cardiovascular diseases Z82.49 ADVANCE DIRECTIVE INFORMATION Restless leg syndrome G25.81 Anxiety state F41.1 HTN, goal below 140/90 I10 Prediabetes R73.03 Other social stressor Z65.9 Ganglion cyst of dorsum of left wrist M67.432 Past Surgical History: Procedure Laterality Date ARTHO,SHOUL,W/ROTATOR CUFF Right 12/07/2017 ARTHROSCOPY SHOULDER ROTATOR CUFF performed by Corinna Servin DO at OR [facility]PL[facility]. 01/26 COLONOSCOPY W/ LESION REMOVAL, SNARE 09/18/08 benign--repeat 5 years, 2013 COLONOSCOPY, DIAGNOSTIC (RECTUM) 01/24/2014 normal, repeat 5 yrs/COLONOSCOPY FLEXIBLE PROXIMAL DIAGNOSTIC performed by Maria T Traylor DO at ENDOSCOPY [facility] COLONOSCOPY, DIAGNOSTIC (RECTUM) 05/10/2019 Normal, 5year repeat-COLONOSCOPY FLEXIBLE PROXIMAL DIAGNOSTIC performed by Maria T Traylor DO at ENDOSCOPY [facility] DEXA SCAN/BONE MINERAL AXIAL 03/25 T = -0.8, repeat 5 years DEXA SCAN/BONE MINERAL AXIAL 04/12/2007 normal, repeat in 2 yrs. DEXA SCAN/BONE MINERAL AXIAL 2008 repeat 2013 DEXA SCAN/BONE MINERAL AXIAL 2013 repeat in 7 years, 2020 DILATION AND CURETTAGE (D&C) D&C, dx hysteroscopy EGD, FLEXIBLE, DIAGNOSTIC 12/11/2015 normal/ESOPHAGOGASTRODUODENOSCOPY (EGD), FLEXIBLE, TRANSORAL, DIAGNOSTIC performed by Maria T Traylor DO at ENDOSCOPY [facility] ENLARGEMENT OF BREAST W/O IMPLANT Saline implants 2004 FX/DISLOC,RADIAL NONARTIC,OPEN,INT FIXATION Left 05/16/2022 OPEN TREATMENT DISTAL RADIAL EXTRA ARTICULAR FRACTURE OR EPIPHYSEAL SEPARATION INTERNAL FIXATION performed by Selwyn Donato Jr., MD at OR [facility] MOUTH SURGERY PROCEDURE NEC 12/24 mandible surgery-Dr. Gillette REMOVE CATARACT, INSERT LENS PROSTH Right 09/30/2016 right EXTRACAPSULAR CATARACT REMOVAL WITH INTRAOCULAR LENS performed by Malcolm Hartman MD at OR [facility] REMOVE CATARACT, INSERT LENS PROSTH Left 10/14/2016 left EXTRACAPSULAR CATARACT REMOVAL WITH INTRAOCULAR LENS performed by Malcolm Hartman MD at OR [facility] SHOULDER ARTHROSCOPY, BICEPS TENODESIS Right 12/07/2017 ARTHROSCOPY SHOULDER BICEP TENODESIS performed by Corinna Servin DO at OR [facility] Social History Socioeconomic History Marital status: Spouse name: Not on file Number of children: Not on file Years of education: Not on file Highest education level: Not on file Occupational History Not on file Tobacco Use Smoking status: Former Packs/day: 0.70 Years: 41.00 Additional pack years: 0.00 Total pack years: 28.70 Types: Cigarettes Quit date: 06/29/2018 Years since quittin.2 Smokeless tobacco: Never Tobacco comments: smoked since age 20; stopped 18 months ago Vaping Use Vaping Use: Never used Substance and Sexual Activity Alcohol use: Yes Comment: very rare Drug use: No Sexual activity: Yes Partners: Male Other Topics Concern Service Not Asked Blood Transfusions Not Asked Caffeine Concern Not Asked Occupational Exposure Not Asked Hobby Hazards Not Asked Sleep Concern Not Asked Stress Concern Not Asked Weight Concern Not Asked Special Diet Yes Comment: milk and ca supplement _ 1000 -1200 mg Back Care Not Asked Exercise Yes Comment: step aerobics bikes treadmill water aerobics - 5/wk Bike Helmet Not Asked Seat Belt Not Asked Self-Exams Yes 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 Social Determinants of Health Financial Resource Strain: Not on file Food Insecurity: No Food Insecurity (10/03/2023) Hunger Vital Sign Worried About Running Out of Food in the Last Year: Never true Ran Out of Food in the Last Year: Never true Transportation Needs: Not on file Physical Activity: Not on file Stress: Not on file Social Connections: Not on file Intimate Partner Violence: Not on file Housing Stability: Not on file Family History Problem Relation Age of Onset Alcohol and Other Disorders Associated Father recovering etoh Hypertension Father 2004 Other (cholesterol) Father elevated triglycerides Neurological Disorder Brother seizures, dev age 30 Heart Disorder Grandmother (Maternal) Heart Disorder Grandmother (Paternal) Neurological Disorder Mother Alzheimers, hip fx, 2001 Hypertension Mother 30 Dev Current Outpatient Medications Medication Sig Dispense Refill Calcium 250 MG Oral Capsule Take by mouth. PreserVision AREDS Oral Capsule Take 1 Capsule by mouth in the morning. Prevagen 10 MG Oral Capsule (Apoaequorin) Take by mouth. Multiple Vitamins-Minerals (MULTI FOR HER 50+) CAPS Take by mouth. Salol-3 Fatty Acids (FISH OIL) 500 MG Capsule Take 1 Capsule by mouth in the morning. Systane 0.4-0.3 % Ophthalmic Solution (Polyethyl Glycol-Propyl Glycol) Instill into eye as needed for Dry eyes. Biotin 10 MG Oral Capsule Take 1 Capsule by mouth in the morning and 1 Capsule at noon and 1 Capsule before bedtime. Calcium Carb-Cholecalciferol 500-10 MG-MCG Oral Tablet Take by mouth. amLODIPine Besylate 5 MG Oral Tablet (Norvasc) Take 1 Tablet by mouth in the morning. 90 Tablet 3 busPIRone HCl 10 MG Oral Tablet (Buspar) Take 1 Tablet by mouth in the morning and 1 Tablet in the evening. 180 Tablet 3 traZODone HCl 100 MG Oral Tablet (Desyrel) TAKE ONE TABLET BY MOUTH AT BEDTIME 90 Tablet 3 hydrOXYzine HCl 50 MG Oral Tablet TAKE 1 TABLET BY MOUTH TWICE DAILY NEEDED FOR ANXIETY AND INSOMNIA 180 Tablet 1 Atenolol 50 MG Oral Tablet (Tenormin) TAKE ONE TABLET BY MOUTH IN THE MORNING 90 Tablet 2 Amoxicillin 500 MG Oral Capsule (Amoxil) Take 1 capsule by mouth twice daily starting 2 days prior to surgery 14 Capsule 0 No current facility-administered medications for this visit. Review of patient's allergies indicates: No Known Allergies Results for orders placed or performed in visit on 03/19/12 CBC Result Value Ref Range WBC 9.55 4.00 - 10.80 K/uL RBC 4.72 3.85 - 5.15 M/uL HGB 14.9 (H) 12.0 - 14.5 g/dL HCT 43.4 36.0 - 44.5 % MCV 91.9 81.5 - 97.5 fL MCH 31.6 27.0 - 34.0 pg MCHC 34.3 32.0 - 36.0 g/dL RDW 13.8 11.5 - 15.5 % PLT 290 140 - 400 K/uL MPV 10.3 6.6 - 11.1 fL Results for orders placed or performed in visit on 06/12/20 BASIC METAB PANEL, BMP Result Value Ref Range BUN 13 6 - 20 mg/dL Creatinine 1.0 0.5 - 1.0 mg/dL Estimated Glomerular Filtration Rate >60.0 >60 Sodium 140 135 - 146 mmol/L Potassium 4.7 3.5 - 5.1 mmol/L Chloride 103 98 - 107 mmol/L CO2 27 22 - 32 mmol/L Anion Gap 10 7 - 15 mmol/L Glucose 121 (H) 70 - 120 mg/dL Calcium 10.6 (H) 8.4 - 10.2 mg/dL Results for orders placed or performed in visit on 05/11/15 LIPID PANEL Result Value Ref Range HOURS FASTING 12 hours Triglycerides 66 <200 mg/dL Cholesterol 193 <200 mg/dL HDL Cholesterol 74 >39 mg/dL Cholesterol-HDL Ratio 2.6 LDL Cholesterol 106 0 - 129 mg/dL Results for orders placed or performed in visit on 06/12/20 LIPID PANEL WITH DIRECT LDL IF TRIGLYCERIDE IS ELEVATED Result Value Ref Range HOURS FASTING NOT FASTING hours Triglycerides 74 0 - 174 mg/dL Cholesterol 221 (H) <200 mg/dL HDL Cholesterol 90 >49 mg/dL NON-HDL CHOLESTEROL 131 0 - 159 mg/dL LDL Cholesterol 116 0 - 129 mg/dL LDL Cholesterol (Direct Measure) NOT APPLICABLE 0 - 129 mg/dL Lab Results Component Value Date/Time HEMOGLOBIN A1C - [facility] 6.0 (H) 02/16/2023 10:32 AM HEMOGLOBIN A1C - [facility] 5.7 (H) 02/14/2022 01:43 PM HEMOGLOBIN A1C - [facility] 5.8 (H) 07/31/2021 11:03 AM HEMOGLOBIN A1C - [facility] 6.0 05/17/2010 03:13 PM Lab Results Component Value Date/Time TSH - [facility] 0.71 02/14/2022 01:43 PM TSH - [facility] 1.35 06/19/2020 08:52 AM TSH - [facility] 0.84 09/05/2019 11:20 AM TSH - [facility] 0.97 05/11/2015 02:26 PM No results found for: "CRIS" No results found for: "[id number]" No results found for: "[id number]" No results found for: "[id number]" 25OH VITAMIN D TOTAL (ng/mL) Date Value 12/28/2012 36.2 09/25/2009 32.5 25-Hydroxy Vitamin D (ng/mL) Date Value 02/14/2022 71 Vitamin D Level Interpretation deficient: <20 ng/ml insufficient: 20-30 ng/ml normal: 31-100 ng/ml REVIEW OF SYSTEMS: As above weight seen occasional headaches skin ulcers hair loss dry eyes ringingin ears wears corrective lenses high blood pressure dry mouth urinary frequency stiff muscles all others negative PHYSICAL EXAM: BP 126/76 | Pulse 62 | Temp 36.8 C (98.2 F) (Tympanic) | Resp 16 | Wt 68 kg (150lb) Comment: per pt | SpO2 98% | BMI 25.75 kg/m | BSA 1.75 m Well-developed female in no distress normal speech and language affect appropriate negative straight leg-raising no tenderness on palpation of the left heel passive range of motion if the left ankle is limited in extension. Pupils are equal no papilledema normal mckeon motility facial symmetry motor there is normal bulk and tone full strength in the uppers and right lower the TA and is 3 tibialis posterior trace peroneus longus full gastroc relatively full. Ankle jerks are trace knee jerks areintact there may be minor decrease in light touch in the sole of the left foot vibration is presentin the toes [id number] and [id number] are normal her gait is more orthopedic she can not dorsiflex the left foot. She can stand on her toes tandem is appropriate for age and Romberg is negative IMPRESSION: Electrically this patient has an L5 radiculopathy she has no ongoing back pain I think it is clinically possible that she had discogenic disease and this is residual weakness. My plan is to refer for her to physical therapy she would prefer a 1 time visit they will also determine if sheneeds a footdrop splint. Will have her see orthopedic spine for their opinion I would like her to see Dr. Garcia. I willfollow her clinically consider EMG of the right lower extremity. Patient will be mindful about the etiologies of her falls if she thinks there is ongoing imbalance we may want to do MRI brain B12 folate. Will refer her to Podiatry as there is a component of plantar fasciitis and they may be able to address that return in 3 months sooner if change. I will message primary care regarding the unchanged complex lesion of the left lower pole of the kidney Gayla Lopez MD 10/08/2023 8:45 AM documented in this encounter Nursing Notes * Traci Oneal MED ASSIST - 10/08/2023 7:52 AM EST Chief Complaint Patient presents with NEW PATIENT documented in this encounter Plan of Treatment Upcoming Encounters Date Type Department Care Team (Late st Contact Info) Description 10/14/2023 3:00 PM EST Office Visit Podiatry [facility] [address] [facility] [place] [address] Sondra Basurto, DPCarlos [address] [place] [address] 2023 8:00 AM EST Office Visit Family Practice [facility] [address] [facility] [place] [address] Janay Grissom PA-C [address] [facility] [place] [address] 12/10/2023 10:45 AM EDT [facility] [address] [place] [address] Federico Garcia MD [address] [place] [address] 01/21/2024 10:00 AM EDT Office Visit Neurology [facility] [address] [facility] [place] [address] Gayla Lopez MD [address] [facility] [place] [address] 03/01/2024 9:00 AM EDT Office Visit Family Practice [facility] [address] [facility] [place] [address] Magy Valles DO [address] [facility] [place] [address] 06/13/2024 9:30 AM EDT Imaging Radiology [address] [facility] [place] [address] Scheduled Procedures Name Priority Associated Diagnoses Date/Ti me COLONOSCOPY FLEXIBLE PROXIMAL DIAGNOSTIC Recall Hx of colonic polyps Scheduled Referrals Name Type Priority Associated Diagnoses Orde r Schedule SPINE SURGERY REFERRAL OP Referral Within 30 days (routine) Lumbosacral radiculopathy at L5 Ordered: 10/08/2023 PHYSICAL THERAPY REFERRAL OP Referral Within 30 days (routine) Lumbosacral radiculopathy at L5 Ordered: 10/08/2023 PODIATRY REFERRAL OP Referral Within 30 days (routine) Pain of left heel Ordered: 10/08/2023 Health Maintenance Due Date Last Done Comments LUNG CANCER SCREENING - USE SMARTSET [id number] Depression Screening 11/22/2022 11/22/2021 COVID-19 Vaccine ( season) 2023 09/09/2022, 07/23/2021, 11/12/2020, Additional history exists Influenza Vaccine (FLU shot) (#1) 2023 05/16/2022, 06/06/2021, 06/06/2020, Additional history exists GFR 02/17/2024 02/16/2023, 12/0 03/2021, 06/12/2020, Additional history exists HbA1c 02/17/2024 [...] 05/25/2018, 05/15/2016, 12/07/2008 Zoster Vaccines Completed 04/08/2019, 09/2018, 05/19/2017 GARDASIL-HPV IMMUNIZATION SERIES Aged Out No longer eligible based on patient's age to complete this topic Hepatitis B Aged Out No longer eligi ble based on patient's age to complete this topic MENINGOCOCCAL (MENACTRA/MENVEO) Aged Out No longer eligible based on patient's age to complete this topic documented as of this encounter Medical Devices Implanted Type Area Women Specialist Device Identifier Shelf Expiration Date Model / Serial / Lot Implant-01/22/2005 Implanted:Qty: 2 on 01/22/2005 Breast Description:Saline breast im plants Lens Intraoc 13.5 - [id number] - [id number] Implanted:Qty: 1 on 09/30/2016 by Malcolm Hartman MD at OR [facility] Right: Eye BAUSCH & LOMB 03/23/2021 [id number] / [id number] Lens Intraoc 13.5 - [id number] - [id number] Implanted:Qty: 1 on 10/14/2016 by Malcolm Hartman MD at OR [facility] Left: Eye BAUSCH & LOMB 04/23/2021 [id number] / [id number] / [id number] Biocomposite Swivelock Suture [place] Implanted:Qty: 2 on 12/07/2017 by Corinan Servin DO at OR [facility] Right: Shoulder [employer] 04/23/2019 [id number] T-2 / / [id number] Screw 2.7x14mm - [id number] Implanted:Qty: 1 on 05/16/2022 by Selwyn Donato MD at OR [facility] Left: Wrist SAVAGE : ORTHOPAEDICS [id number] / / documented as of this encounter Visit Diagnoses Diagnosis Lumbosacral radiculopathy at L5- Primary Thoracic or lumbosacral neuritis or radiculitis, unspecified Pain of left heel Pain in limb documented in this encounter Advance Directives Latest Code Status [...] the patient have Health Care Power of Compressed Gas Tester? No Code Status History Code Status Date [...] and were consensually agreed upon. Care Teams Museum Exhibit Designer Relationship Specialty Start Date End Date Magy Valles DO [address] [place] [address] PCP - General Family Medicine 12/12/15 documented as of this encounter
--- OUTSIDE RECORDS SUMMARY | 2023-10-13 07:55 | External Medical Summary | Summary of Care ---
Author Name Unknown Organization [facility] Address [address] [place] [address] Phone [phone] Care Team Providers Care Managing Supervisor Name Role Phone Magy Valles DO Primary Care Provider [phone] Reason for Referral * Precert (Within 10 days (routine)) - Pending Review Specialty Diagnoses / Procedures Referred By Contac t Referred To Contact Radiology Diagnoses Lumbar radiculopathy Procedures MRI L SPINE WO CONTRAST Gayla Lopez MD [address] [facility] [place] [address] Referral ID Status Reason Start Date Expiration Date V isits Requested Visits Authorized [id number] Pending Review 09/08/2023 999 999 Reason for Visit * Reason Comments EMG Encounter Details Date Type Department Care Team (Late st Contact Info) Description 09/08/2023 8:00 AM EST NeuroDiagnostic Study Neurophysiology [facility] [place] [address] [facility] [place] [address] Gayla Lopez MD [address] [facility] [place] [address] Arrived Allergies No known active allergiesdocumented as of this encounter (statuses as of 09/08/2023) Medications Medication Sig Dispensed Refills Start Date End Date Status Multiple Vitamins-Minerals (MULTI FOR HER 50+) CAPS Take by mouth. 0 Active [place]-3 Fatty Acids (FISH OIL) 500 MG Capsule Take 1 Capsule by mouth in the morning. 0 Active Systane 0.4-0.3 % Ophthalmic Solution (Polyethyl Glycol-Propyl Glycol) Instill into eye as needed for Dry eyes. 0 Active Biotin 10 MG Oral Capsule Take 1 Capsule by mouth in the morning and 1 Capsule at noon and 1 Capsule before bedtime. 0 Active buPROPion HCl ER (XL) 300 MG Oral Tablet Extended Release 24 Hour (Wellbutrin XL)Indications:Anxi ety state TAKE ONE TABLET BY MOUTH DAILY 90 Tablet 0 11/15/2022 11/15/2023 Active Calcium Carb-Cholecalcifero l 500-10 MG-MCG Oral [...] to surgery 14 Capsule 0 07/08/2023 Active documented as of this encounter (statuses as of 09/08/2023) Active Problems Problem Noted Date Diagnosed Date [...] as of this encounter (statuses as of 09/08/2023) Resolved Problems Problem Noted Date Diagnosed Date [...] as of this encounter (statuses as of 09/08/2023) Immunizations Name Administration Dates Next Due COVID-19 mRNA, LNP-s, No Pre serve, 2-Dose Series ([employer]) 07/23/2021,11/12/2020,10/17/2020 Covid-19, Mrna, Lnp-s, Pf, B ivalent, [...] on file documented as of this encounter Progress Notes * Gayla Lopez MD - 09/08/2023 10:35 AM EST [facility] Neurophysiology Department [place], [place] Test Date: 09/08/2023 Patient: Antionette Russell : 1950 Physician: Gayla Lopez MD Sex: Female Height: 5' 4" Ref Phys: Yoly Abarca, DPM ID#: [id number] Weight: 150 lbs. Amusement Ride Inspector: Alex Sotelo Patient Complaints: falls x 2 [...] in amplitudeEMG of lumbar paraspinals was unremarkable Gayla Lopez MD NCS+ Motor Nerve Results Latency Amplitude Segment Distance Velocity Min F-Lat Temperature Site (ms) Norm (mV) Norm cm m/s Norm (ms) Norm (C) Left Dp Branch Fibular (TA) Motor Bel Fib Head 2.7 < 6.9 2.5 > 5.1 Bel Fib Head-Tib Anterior 10 - Pop Fossa 4.7 - 2.3 - Pop Fossa-Bel Fib Head 10 50 - - Left Fibular (with F) Ankle 5.7 < 6.7 0.46 > 2.0 Ankle-EDB 8.5 NR < 58.0 - Bel Fib Head 12.7 - 0.46 - Bel Fib Head-Ankle 27.5 39 > 41 - Pop Fossa 15.3 - 0.46 - Pop Fossa-Ankle 37.5 39 - - Pop Fossa-Bel Fib Head 10 38 - Right Fibular (with F) Ankle 5.6 < 6.7 2.1 > 2.0 Ankle-EDB 8.5 - Bel Fib Head 11.2 - 2.1 - Bel Fib Head-Ankle 27.5 49 > 41 - Pop Fossa 13.2 - 1.29 - Pop Fossa-Ankle 37.5 49 - - Pop Fossa-Bel Fib Head 10 50 - Left Tibial (with F) Ankle 4.9 < 6.2 2.2 > 4.0 Ankle-AHB 8 52.8 < 58.0 - Pop Fossa 13.8 - 0.92 - Pop Fossa-Ankle 38 43 > 41 - Right Tibial (with F) Ankle 4.1 < 6.2 6.9 > 4.0 Ankle-AHB 8 - Pop Fossa 12.6 - 4.2 - Pop Fossa-Ankle 38 45 > 41 - Motor Segments Delta-O Distance CV Segment (ms) (cm) (m/s) Norm Left Dp Branch Fibular (TA) Motor Bel Fib Head-Tib Anterior 10 Pop Fossa-Bel Fib Head 2.0 10 50 - Left Fibular (with F) Ankle-EDB 8.5 Bel Fib Head-Ankle 7.0 27.5 39 > 41 Pop Fossa-Ankle 9.6 37.5 39 - Pop Fossa-Bel Fib Head 2.6 10 38 - Right Fibular (with F) Ankle-EDB 8.5 Bel Fib Head-Ankle 5.6 27.5 49 > 41 Pop Fossa-Ankle 7.6 37.5 49 - Pop Fossa-Bel Fib Head 2.0 10 50 - Left Tibial (with F) Ankle-AHB 8 Pop Fossa-Ankle 8.9 38 43 > 41 Right Tibial (with F) Ankle-AHB 8 Pop Fossa-Ankle 8.5 38 45 > 41 Sensory Nerve Results Latency (Peak) Amplitude ( O-P ) Segment Distance Temperature Site (ms) Norm (V) Norm (cm) (C) Left Superficial Fibular Sensory 14 cm-Ankle 3.5 - 7 > 0 14 cm-Ankle 14 - Right Superficial Fibular Sensory 14 cm-Ankle 3.7 - 8 > 0 14 cm-Ankle 14 - Left Sural Sensory Calf 3.3 < 4.6 4 > 6 Calf-Lat Mall 14 - Right Sural Sensory Calf-Lat Mall 3.1 < 4.6 6 > 6 Calf-Lat Mall 14 - EMG+ Side Muscle Root Ins Act Fibs Fasic Others Poly Dur Amp Recrt Activation Commt Left Vastus Lat L2-L4 NL 0 0 None 0 NL NL NL NL Left Tib Anterior L4-L5 Incr 1+ 0 None 2+ NL 2+ Reduced 2 MUP Left Gluteus Med L5-S1 NL 0 0 None 0 NL 1+ NL NL Left Biceps Fem SH L5-S1 NL 0 0 None 0 NL NL NL NL Left Gastroc LH S1-S2 NL 0 0 None 0 NL NL NL NL Left Fib Longus L5-S1 NL 0 0 None 0 NL NL NL NL Left Biceps Fem LH L5-S2 NL 0 0 None 0 NL NL NL NL Left Lumbo Parasp (Upper) L1-L2 NL 0 0 None Left Lumbo Parasp (Mid) L3-L4 NL 0 0 None documented in this encounter Plan of Treatment Upcoming Encounters Date Type Department Care Team (Late st Contact Info) Description 03/01/2024 9:00 AM EDT Office Visit Family Practice [facility] [address] [facility] [place] [address] Magy Valles, [address] [facility] [place] [address] 06/13/2024 9:30 AM EDT Imaging Radiology [address] [facility] [place] [address] Scheduled Orders Name Type Priority Associated Diagnoses Orde r Schedule MRI L SPINE WO CONTRAST Medical Imaging Routine Lumbar radiculopathy Ordered: 09/08/2023 Scheduled Procedures Name Priority Associated Diagnoses Date/Ti me COLONOSCOPY FLEXIBLE PROXIMAL DIAGNOSTIC Recall Hx of colonic polyps Health Maintenance Due Date Last Done Comments LUNG CANCER SCREENING - USE SMARTSET 76204 2000 Depression Screening 11/22/2022 11/22/2021 COVID-19 Vaccine ( season) 2023 09/09/2022, 07/23/2021, 11/12/2020, Additional history exists Influenza Vaccine (FLU shot) (#1) 2023 05/16/2022, 06/06/2021, 06/06/2020, Additional history exists GFR 02/17/2024 02/16/2023, 03/2021, 06/12/2020, Additional history exists HbA1c 02/17/2024 02/16/2023, 01/23, 07/31/2021, Additional history exists COLONOSCOPY-EVERY 5 YRS AGES 18-100 05/10/2024 05/10/2019, 05/10/2019, 01/24/2014, Additional history exists Mammogram 06/10/2024 06/10/2023, 05/24, 06/06/2021, Additional history exists DXA Scan 09/30/2024 09/30/2021, 03/25, 04/11/2009, Additional history exists Albumin/Creatinine Ratio 02/14/2025 02/14/2022 [...] this encounter Medical Devices Implanted Type Area Reclamation Kettle Tender Device Identifier Shelf Expiration Date Model / Serial / Lot Implant-01/22/2005 Implanted:Qty: 2 on 01/22/2005 Breast Description:Saline breast im plants Lens Intraoc 13.5 - [id number] - [id number] Implanted:Qty: 1 on 09/30/2016 by Malcolm Hartman MD at OR [facility] Right: Eye BAUSCH & LOMB 03/23/2021 [id number] / [id number] / [id number] Lens Intraoc 13.5 - [id number] - [id number] Implanted:Qty: 1 on 10/14/2016 by Malcolm Hartman MD at OR [facility] Left: Eye BAUSCH & LOMB 04/23/2021 [id number] / [id number] Biocomposite Swivelock Suture [place] Implanted:Qty: 2 on 12/07/2017 by Corinna Servin DO at OR [facility] Right: Shoulder [employer] 04/23/2019 AR-2323BC T-2 / / [id number] Screw 2.7x14mm - [id number] Implanted:Qty: 1 on 05/16/2022 by Selwyn Donato MD at OR [facility] Left: Wrist SAVAGE : ORTHOPAEDICS [id number] / / documented as of this encounter Visit Diagnoses Diagnosis Lumbar radiculopathy- Primary Thoracic or lumbosacral neuritis or radiculitis, unspecified documented in this encounter Advance Directives Latest [...] the patient have Health Care Power of Mix Chemist? No Code Status History Code Status Date [...] and were consensually agreed upon. Care Teams Managing Supervisor Relationship Specialty Start Date End Date Magy Valles DO [address] [place] [address] PCP - General Family Medicine 12/12/15 documented as of this encounter
--- OUTSIDE RECORDS SUMMARY | 2023-10-13 07:55 | External Medical Summary | Summary of Care ---
Author Name Unknown Organization [facility] Address [address] [place] [address] Phone [phone] Care Team Providers Care Computer Support Technician Name Role Phone TalonMagy acosta Primary Care Provider [phone] Encounter Details Date Type Department Care Team (Late st Contact Info) Description 07/23/2023 Patient Reported Data Patient Survey Ortho [facility]BER[facility] Allergies No known active allergiesdocumented as of this encounter (statuses as of 07/23/2023) Medications Medication Sig Dispensed Refills Start Date End Date Status Multiple Vitamins-Minerals (MULTI FOR HER 50+) CAPS Take by mouth. 0 Active [place]-3 Fatty Acids (FISH OIL) 500 MG Capsule [...] as of this encounter (statuses as of 07/23/2023) Active Problems Problem Noted Date Diagnosed Date [...] as of this encounter (statuses as of 07/23/2023) Resolved Problems Problem Noted Date Diagnosed Date [...] as of this encounter (statuses as of 07/23/2023) Immunizations Name Administration Dates Next Due COVID-19 mRNA, LNP-s, No Pre serve, 2-Dose Series ([employer]) 07/23/2021,11/12/2020,10/17/2020 Covid-19, Mrna, Lnp-s, Pf, B ivalent, 30 Mcg, IM, 12 yrs and above ([employer]) 09/09/2022 Pneumococcal Conjugate Vacc, 13 Valent (Prevnar) 05/15/2016 Pneumococcal Polysaccharide PPV23 (Pneumovax) 05/25/2018,12/07/2008 SEASONAL INFLUENZA, PF, 6 M & Above, IM , (FLULAVAL or FLUZONE) 05/25/2018,05/19/2017 Season Influenza, Cell Culte r, 18+ Yrs, With Preserv (Flucelvax) 04/21/2014 Season Influenza, Quad, PF, Adjuvanted, 65+ Yrs, IM (FLUAD) 05/21/2020 Seasonal Influenza, Quadriva lent Hd (Fluzone Hd) [...] on file documented as of this encounter Plan of Treatment Upcoming Encounters Date Type Department Care Team (Late st Contact Info) Description 07/28/2023 1:00 PM EST Office Visit Podiatry [facility] [address] [place] [address] Yloy Abarca DPM [address] [place] [address] 09/01/2023 8:20 AM EST Office Visit Family Practice [facility] [address] [place] [address] Magy Valles DO [address] [place] [address] 03/01/2024 9:00 AM EDT Office Visit Family Practice [facility] [address] [place] [address] Magy Valles DO [address] [place] [address] 06/13/2024 9:30 AM EDT Imaging Radiology [facility]st [facility] [address] [place] [address] Scheduled Procedures Name Priority Associated Diagnoses Date/Ti me COLONOSCOPY FLEXIBLE PROXIMAL DIAGNOSTIC Recall Hx of colonic polyps Health Maintenance Due Date Last Done Comments LUNG CANCER SCREENING - USE SMARTSET 67085 2000 Depression Screening 11/22/2022 11/22/2021 COVID-19 Vaccine [...] this encounter Medical Devices Implanted Type Area Upper And Bottom Lacer Hand Device Identifier Shelf Expiration Date Model / Serial / Lot Implant-01/22/2005 Implanted:Qty: 2 on 01/22/2005 Breast Description:Saline breast im plants Lens Intraoc 13.5 - [id number] - [id number] Implanted:Qty: 1 on 09/30/2016 by Malcolm Hartman MD at OR [facility] Right: Eye BAUSCH & LOMB 03/23/2021 [id number] / [id number] / [id number] Lens Intraoc 13.5 - [id number] - [id number] Implanted:Qty: 1 on 10/14/2016 by Malcolm Hartman MD at OR [facility] Left: Eye BAUSCH & LOMB 04/23/2021 [id number] / [id number] Biocomposite Swivelock Suture [place] Implanted:Qty: 2 on 12/07/2017 by Corinna Servin DO at OR [facility] Right: Shoulder [employer] 04/23/2019 AR-2323BC T-2 / / [id number] Screw 2.7x14mm - [id number] Implanted:Qty: 1 on 05/16/2022 by Selwyn Donato MD at OR [facility] Left: Wrist SAVAGE : ORTHOPAEDICS [id number] / / documented as of this encounter [...] the patient have Health Care Power of Clinical Informatics Strategist? No Code Status History Code Status Date [...] and were consensually agreed upon. Care Teams Computer Support Technician Relationship Specialty Start Date End Date Magy Valles DO [address] [place] [address] PCP - General Family Medicine 12/12/15 documented as of this encounter
--- OUTSIDE RECORDS SUMMARY | 2023-10-13 07:55 | External Medical Summary | Summary of Care ---
Author Name Unknown Organization [facility] Address [address] [place] [facility] [address] Phone [phone] Care Team Providers Care Senior Quality Control Technician Name Role Phone TalonMagy acosta Primary Care Provider [phone] Encounter Details Date Type Department Care Team (Late st Contact Info) Description 07/23/2023 Patient Reported Data Patient Survey Ortho [facility] Allergies No known active allergiesdocumented as of this encounter (statuses as of 07/23/2023) Medications Medication Sig Dispensed Refills Start Date End Date Status Multiple Vitamins-Minerals (MULTI FOR HER 50+) CAPS Take by mouth. 0 Active [place]-3 Fatty Acids (FISH OIL) 500 MG Capsule [...] mRNA, LNP-s, No Pre serve, 2-Dose Series ([employer]) 07/23/2021,11/12/2020,10/17/2020 Covid-19, Mrna, Lnp-s, Pf, B ivalent, 30 Mcg, IM, 12 yrs and above (eShares) 09/09/2022 Pneumococcal Conjugate Vacc, 13 Valent (Prevnar) [...] 07/28/2023 1:00 PM EST Office Visit Podiatry [facility] [address] [place] [address] Yoly Abarca DPM [address] [place] [address] 09/01/2023 8:20 AM EST Office Visit Family Practice [facility] [address] [place] [address] Magy Valles DO [address] [place] [address] 03/01/2024 9:00 AM EDT Office Visit Family Practice [facility] [address] [place] [address] Magy Valles DO [address] [place] [address] 06/13/2024 9:30 AM EDT Imaging Radiology [facility] [address] [facility] [address] [place] [address] Scheduled Procedures Name Priority Associated Diagnoses Date/Ti me COLONOSCOPY FLEXIBLE PROXIMAL DIAGNOSTIC Recall Hx of colonic polyps Health Maintenance Due Date Last Done Comments LUNG CANCER SCREENING - USE SMARTSET 11392 2000 Depression Screening 11/22/2022 11/22/2021 COVID-19 Vaccine [...] this encounter Medical Devices Implanted Type Area Varnisher Plasticoater Device Identifier Shelf Expiration Date Model / Serial / Lot Implant-01/22/2005 Implanted:Qty: 2 on 01/22/2005 Breast Description:Saline breast im plants Lens Intraoc 13.5 - [id number] - [id number] Implanted:Qty: 1 on 09/30/2016 by Malcolm Hartman MD at OR [facility] Right: Eye BAUSCH & LOMB 03/23/2021 [id number] / [id number] / [id number] Lens Intraoc 13.5 - [id number] - [id number] Implanted:Qty: 1 on 10/14/2016 by Malcolm Hartman MD at OR [facility] Left: Eye BAUSCH & LOMB 04/23/2021 [id number] / [id number] Biocomposite Swivelock Suture [place] Implanted:Qty: 2 on 12/07/2017 by Corinna Servin DO at OR [facility] Right: Shoulder [employer] 04/23/2019 AR-2323BC T-2 / / [id number] Screw 2.7x14mm - [id number] Implanted:Qty: 1 on 05/16/2022 by Selwyn Donato MD at OR [facility] Left: Wrist SAVAGE : ORTHOPAEDICS [id number] / / documented as of this encounter [...] the patient have Health Care Power of Pillowcase Turner? No Code Status History Code Status Date [...] and were consensually agreed upon. Care Teams Senior Quality Control Technician Relationship Specialty Start Date End Date Magy Valles DO [address] [place] [address] PCP - General Family Medicine 12/12/15 documented as of this encounter
--- OUTSIDE RECORDS SUMMARY | 2023-10-13 07:55 | External Medical Summary | Summary of Care ---
Author Name Unknown Organization [facility] Address [address] [place] [facility] [facility] [place] [address] Phone [phone] Care Team Providers Care Roll Threader Operator Name Role Phone TalonMagy acosta Primary Care Provider [phone] Encounter Details Date Type Department Care Team (Late st Contact Info) Description 07/23/2023 Patient Reported Data Patient Survey Ortho [facility] Allergies No known active allergiesdocumented as of this encounter (statuses as of 07/23/2023) Medications Medication Sig Dispensed Refills Start Date End Date Status Multiple Vitamins-Minerals (MULTI FOR HER 50+) CAPS Take by mouth. 0 Active [place]-3 Fatty Acids (FISH OIL) 500 MG Capsule [...] mRNA, LNP-s, No Pre serve, 2-Dose Series ([email or web address]) 07/23/2021,11/12/2020,10/17/2020 Covid-19, Mrna, Lnp-s, Pf, B ivalent, 30 Mcg, IM, 12 yrs and above ([email or web address]) 09/09/2022 Pneumococcal Conjugate Vacc, 13 Valent (Prevnar) [...] 07/28/2023 1:00 PM EST Office Visit Podiatry [facility] [address] [place] [address] Yoly Abarca DPM [address] [place] [address] 09/01/2023 8:20 AM EST Office Visit Family Practice [facility] [address] [place] [address] Magy Valles DO [address] [place] [address] 03/01/2024 9:00 AM EDT Office Visit Family Practice [facility] [address] [place] [address] Magy Valles DO [address] [place] [address] 06/13/2024 9:30 AM EDT Imaging Radiology [facility] [address] [place] [address] Scheduled Procedures Name Priority Associated Diagnoses Date/Ti me COLONOSCOPY FLEXIBLE PROXIMAL DIAGNOSTIC Recall Hx of colonic polyps Health Maintenance Due Date Last Done Comments LUNG CANCER SCREENING - USE SMARTSET 43596 2000 Depression Screening 11/22/2022 11/22/2021 COVID-19 Vaccine [...] this encounter Medical Devices Implanted Type Area Dust Collector Operator Device Identifier Shelf Expiration Date Model / Serial / Lot Implant-01/22/2005 Implanted:Qty: 2 on 01/22/2005 Breast Description:Saline breast im plants Lens Intraoc 13.5 - [id number] - [id number] Implanted:Qty: 1 on 09/30/2016 by Malcolm Hartman MD at OR [facility] Right: Eye BAUSCH & LOMB 03/23/2021 [id number] / [id number] / [id number] Lens Intraoc 13.5 - [id number] - [id number] Implanted:Qty: 1 on 10/14/2016 by Malcolm Hartman MD at OR [facility] Left: Eye BAUSCH & LOMB 04/23/2021 [id number] / [id number] Biocomposite Swivelock Suture [place] Implanted:Qty: 2 on 12/07/2017 by Corinna Servin DO at OR [facility] Right: Shoulder [employer] 04/23/2019 AR-2323BC T-2 / / [id number] Screw 2.7x14mm - [id number] Implanted:Qty: 1 on 05/16/2022 by Selwyn Donato MD at OR [facility] Left: Wrist SAVAGE : ORTHOPAEDICS [id number] / / documented as of this encounter [...] the patient have Health Care Power of Chief Information Security Officer? No Code Status History Code Status Date [...] and were consensually agreed upon. Care Teams Roll Threader Operator Relationship Specialty Start Date End Date Magy Valles DO [address] [place] [address] PCP - General Family Medicine 12/12/15 documented as of this encounter
--- OUTSIDE RECORDS SUMMARY | 2023-10-13 07:55 | External Medical Summary | Summary of Care ---
Author Name Unknown Organization [facility] Address [address] [place] [place] [address] Phone [phone] Care Team Providers Care Site Acquisition Specialist Name Role Phone ZhaoMagy hall Carlos RUFFIN Primary Care Provider [phone] Reason for Visit * Reason Comments NEW PATIENT Left foot pain and n umbness causing limp/tripping, foot drops when walking Encounter Details Date Type Department Care Team (Late st Contact Info) Description 07/28/2023 1:00 PM EST Office Visit Podiatry [facility] [address] [place] [address] Yoly Abarca DPM [address] [place] [address] Paresthesia and pain of left extremity*; Numbness and tingling of left leg Allergies No known active allergiesdocumented as of this encounter (statuses as of 07/28/2023) Medications Medication Sig Dispensed Refills Start Date End Date Status Multiple Vitamins-Minerals (MULTI FOR HER 50+) CAPS Take by mouth. 0 Active [place]-3 Fatty Acids (FISH OIL) 500 MG Capsule [...] as of this encounter (statuses as of 07/28/2023) Active Problems Problem Noted Date Diagnosed Date [...] as of this encounter (statuses as of 07/28/2023) Resolved Problems Problem Noted Date Diagnosed Date Resolved Date History of colon polyps 11/25/2018 050 01/2020 Overview: Historical. Chronic tension-type headach e, [...] as of this encounter (statuses as of 07/28/2023) Immunizations Name Administration Dates Next Due COVID-19 mRNA, LNP-s, No Pre serve, 2-Dose Series ([employer]) 07/23/2021,11/12/2020,10/17/2020 Covid-19, Mrna, Lnp-s, Pf, B ivalent, 30 Mcg, IM, 12 yrs and above ([employer]) 09/09/2022 Pneumococcal Conjugate Vacc, 13 Valent (Prevnar) [...] as of this encounter Progress Notes * Yoly Abarca DPM - 07/28/2023 1:06 PM EST Podiatry New Patient Note [facility] Name: Antionette Russell : 1950 Date: 07/28/2023 CHIEF COMPLAINT: Left foot numbness and tingling HISTORY OF PRESENT ILLNESS: This patient is a 72 year old female who presents today with complaintsof left lower extremity numbness and tingling. Pt states she is having trouble with balance and numbness/tingling to the left lower extremity. States she wears and AFO for foot drop. She was told by PT that she likely does not have a foot drop. She was seen by her PCP, as well. States she refuses to get an EMG. States she has been falling a lot and is concerned. She feels there is still somethingwrong with her left knee. Denies any other complaints. Past Medical History: Diagnosis Date Adjustment disorder with depressed mood Benign neoplasm of colon 09/18/08 benign polyp--repeat 5 years Diaphragmatic hernia Floaters Hypertension Mucous polyp of cervix Polyp,Cervix Postmenopausal bleeding eval with D+C hyster - dyssynchronous endo Prediabetes 08/05/2021 Per Prediabetes protocol Pyelonephritis 02/27 treated as out pt - was very sick Past Surgical History: Procedure Laterality Date ARTHOUSHA,W/ROTATOR CUFF Right 12/07/2017 ARTHROSCOPY SHOULDER ROTATOR CUFF performed by Corinna Servin DO at OR [facility] BREAST IMPLANTS-SILICONE EDU. 01/26 COLONOSCOPY W/ LESION REMOVAL, SNARE 09/18/08 benign--repeat 5 years, 2013 COLONOSCOPY, DIAGNOSTIC (RECTUM) 01/24/2014 normal, repeat 5 yrs/COLONOSCOPY FLEXIBLE PROXIMAL DIAGNOSTIC performed by Maria T Traylor DO at ENDOSCOPY [facility] COLONOSCOPY, DIAGNOSTIC (RECTUM) 05/10/2019 Normal, 5year repeat-COLONOSCOPY FLEXIBLE PROXIMAL DIAGNOSTIC performed by Maria T Traylor DO at ENDOSCOPY [facility] DEXA SCAN/BONE MINERAL AXIAL 03/25 T = -0.8, repeat 5 years DEXA SCAN/BONE MINERAL AXIAL 04/12/2007 normal, repeat in 2 yrs. DEXA SCAN/BONE MINERAL AXIAL 2008 repeat 2013 DEXA SCAN/BONE MINERAL AXIAL 2013 repeat in 7 years, 2020 DILATION AND CURETTAGE (D&C) D&C, dx hysteroscopy EGD, FLEXIBLE, DIAGNOSTIC 12/11/2015 normal/ESOPHAGOGASTRODUODENOSCOPY (EGD), FLEXIBLE, TRANSORAL, DIAGNOSTIC performed by Maria T Traylor DO at ENDOSCOPY [facility] ENLARGEMENT OF BREAST W/O IMPLANT Saline implants 2004 FX/DISLOC,RADIAL NONARTIC,OPEN,INT FIXATION Left 05/16/2022 OPEN TREATMENT DISTAL RADIAL EXTRA ARTICULAR FRACTURE OR EPIPHYSEAL SEPARATION INTERNAL FIXATION performed by Selwyn Donato Jr., MD at OR [facility] MOUTH SURGERY PROCEDURE NEC 12/24 mandible surgery-Dr. Gillette REMOVE CATARACT, INSERT LENS PROSTH Right 09/30/2016 right EXTRACAPSULAR CATARACT REMOVAL WITH INTRAOCULAR LENS performed by Malcolm Hartman MD at OR [facility] REMOVE CATARACT, INSERT LENS PROSTH Left 10/14/2016 left EXTRACAPSULAR CATARACT REMOVAL WITH INTRAOCULAR LENS performed by Malcolm Hartman MD at OR [facility] SHOULDER ARTHROSCOPY, BICEPS TENODESIS Right 12/07/2017 ARTHROSCOPY SHOULDER BICEP TENODESIS performed by Corinna Servin DO at OR [facility] Family History Problem Relation Age of Onset Alcohol and Other Disorders Associated Father recovering etoh Hypertension Father 2004 Other (cholesterol) Father elevated triglycerides Neurological Disorder Brother seizures, dev age 30 Heart Disorder Grandmother (Maternal) Heart Disorder Grandmother (Paternal) Neurological Disorder Mother Alzheimers, hip fx, 2001 Hypertension Mother 30 Dev Social History Socioeconomic History Marital status: Tobacco Use Smoking status: Former Packs/day: 0.70 Years: 41.00 Additional pack years: 0.00 Total pack years: 28.70 Types: Cigarettes Quit date: 06/29/2018 Years since quittin.0 Smokeless tobacco: Never Tobacco comments: smoked since age 20; stopped 18 months ago Vaping Use Vaping Use: Never used Substance and Sexual Activity Alcohol use: Yes Comment: very rare Drug use: No Sexual activity: Yes Partners: Male Other Topics Concern Special Diet Yes Comment: milk and ca supplement _ 1000 -1200 mg Exercise Yes Comment: step aerobics bikes treadmill water aerobics - 5/wk Self-Exams Yes Social History 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 [place]-3 Fatty Acids (FISH OIL) 500 MG Capsule Take 1 Capsule by mouth in the morning. Systane 0.4-0.3 % Ophthalmic Solution (Polyethyl Glycol-Propyl Glycol) Instill into eye as needed for Dry eyes. Biotin 10 MG Oral Capsule Take 1 Capsule by mouth in the morning and 1 Capsule at noon and 1 Capsule before bedtime. buPROPion HCl ER (XL) 300 MG Oral Tablet Extended Release 24 Hour (Wellbutrin XL) TAKE ONE TABLET BY MOUTH DAILY 90 Tablet 0 Calcium Carb-Cholecalciferol 500-10 MG-MCG Oral Tablet Take [...] No current facility-administered medications for this visit. ALLERGIES: Review of patient's allergies indicates: No Known Allergies REVIEW OF SYSTEMS: CONSTITUTIONAL: No change in weight, No weakness, No fatigue, and No fevers, sweats, or chills EYE: No recent significant change in vision and No eye pain, redness, discharge EARS: No ear pain and No recent change in hearing NOSE: No history of frequent colds or sinusitis and No nasal stuffiness PULMONARY: No cough, sputum, or hemoptysis and No recent change in breathing CARDIOVASCULAR: No chest pain and No shortness of breath EXTREMITIES: Numbness and tingling to the left lower extremity SKIN/INTEGUMENTARY: No edema, No rash, and No itching NEUROLOGIC: Balance problems, No headaches, No seizures PSYCHIATRIC: No depression, No anxiety, and No psychosis FOCUSED PODIATRIC EXAM: Vitals: There were no vitals filed for this visit. General: Patient is awake alert oriented to person place time. No apparent distress. Gait exam performed. Pt is able to lift her toes from the ground when walking with no dragging or foot slap observed to the left lower extremity. Hammertoes noted 2-4. Skin is normal in appearance. DIAGNOSTIC STUDIES: None ASSESSMENT: Paresthesia Numbness and tingling PLAN: - Discussed with pt her signs and symptoms and how this is likely more nerve related. She initiallyrefused to have an EMG performed, but then agreed to have the order placed. - Question foot drop given clinical picture. - EMG order placed. Will call with results. Pt will think about doing this. - For now, continue with current AFO as she states this makes her feel better. - Pt to RTC PRN. Instructed to call with any problems or questions. Yoly Abarca DPM documented in this encounter Nursing Notes * Alley Briggs LPN - 07/28/2023 12:50 PM EST New patient Left foot pain and numbness causing limp/tripping, foot drops when walking x January 2022 fell down steps. Patient denies any pain today Patient has been wearing bracing went to PT for foot 18 session started in January 2023 Patient denies any injections or injury or surgery documented in this encounter Plan of Treatment Upcoming Encounters Date Type Department Care Team (Late st Contact Info) Description 09/01/2023 8:20 AM EST Office Visit [facility] [address] [facility] [place] [address] Magy Valles DO [address] [place] [address] 09/08/2023 8:00 AM EST NeuroDiagnostic Study Neurophysiology [address] [place] [address] [place] [address] Gayla Lopez MD [address] [place] [address] 03/01/2024 9:00 AM EDT Office Visit [facility] [address] [facility] [place] [address] Magy Valles, [address] [place] [address] 06/13/2024 9:30 AM EDT Imaging Radiology [address], [place] [address] [place] [address] Scheduled Procedures Name Priority Associated Diagnoses Date/Ti me COLONOSCOPY FLEXIBLE PROXIMAL DIAGNOSTIC Recall Hx of colonic polyps Health Maintenance Due Date Last Done Comments LUNG CANCER SCREENING - USE SMARTSET 02643 2000 Depression Screening 11/22/2022 11/22/2021 COVID-19 Vaccine [...] 05/25/2018, 05/15/2016, 12/07/2008 Zoster Vaccines Completed 04/08/2019, 0509/2018, 05/19/2017 GARDASIL-HPV IMMUNIZATION SERIES Aged Out No longer eligible based on patient's age to complete this topic Hepatitis B Aged Out No longer eligi ble based on patient's age to complete this topic MENINGOCOCCAL (MENACTRA/MENVEO) Aged Out No longer eligible based on patient's age to complete this topic documented as of this encounter Medical Devices Implanted Type Area Contact Acid Plant Operator Helper Device Identifier Shelf Expiration Date Model / Serial / Lot Implant-01/22/2005 Implanted:Qty: 2 on 01/22/2005 Breast Description:Saline breast im plants Lens Intraoc 13.5 - [id number] - [id number] Implanted:Qty: 1 on 09/30/2016 by Malcolm Hartman MD at OR [facility] Right: Eye [employer]OM[employer] 03/23/2021 [id number] / [id number] / [id number] Lens Intraoc 13.5 - [id number] - [id number] Implanted:Qty: 1 on 10/14/2016 by Malcolm Hartman MD at OR [facility] Left: Eye [employer]CH [employer] LOMB 04/23/2021 [id number] / [id number] / [id number] Biocomposite Swivelock Suture [place] Implanted:Qty: 2 on 12/07/2017 by Corinna Servin DO at OR [facility] Right: Shoulder [employer] 04/23/2019 [id number] T-2 / / [id number] Screw 2.7x14mm - [id number] Implanted:Qty: 1 on 05/16/2022 by Selwyn Donato MD at OR [facility] Left: Wrist SAVAGE : ORTHOPAEDICS [id number] / / documented as of this encounter Visit Diagnoses Diagnosis Paresthesia and pain of left extremity- Primary Pain in limb Numbness and tingling of left leg Disturbance of skin sensation documented in this encounter Advance Directives Latest [...] the patient have Health Care Power of Engraving Patternmaker? No Code Status History Code Status Date [...] and were consensually agreed upon. Care Teams Site Acquisition Specialist Relationship Specialty Start Date End Date Magy Valles DO [address] [place] [address] PCP - General Family Medicine 12/12/15 documented as of this encounter
--- OUTSIDE RECORDS SUMMARY | 2023-10-13 07:55 | External Medical Summary | Summary of Care ---
Author Name Unknown Organization [facility] Address [address] [facility] [address] Phone [phone] Care Team Providers Care Supervisor Research Shop Name Role Phone Magy Valles DO Primary Care Provider [phone] Reason for Visit * Reason Onset Date Comments Appointment 09/28/2023 Encounter Details Date Type Department Care Team (Late st Contact Info) Description 09/28/2023 Telephone Radiology [address] [facility] [place] [address] Jessica Burnette, RT (R) Appointment Allergies No known active allergiesdocumented as of this encounter (statuses as of 09/28/2023) Medications Medication Sig Dispensed Refills Start Date End Date Status Multiple Vitamins-Minerals (MULTI FOR HER 50+) CAPS Take by mouth. 0 Active Armour-3 Fatty Acids (FISH OIL) 500 MG Capsule [...] as of this encounter (statuses as of 09/28/2023) Active Problems Problem Noted Date Diagnosed Date [...] as of this encounter (statuses as of 09/28/2023) Resolved Problems Problem Noted Date Diagnosed Date Resolved Date History of colon polyps 11/25/2018 05/0 01/2020 Overview: Historical. Chronic tension-type headach e, not intractable 05/01/2016 05/19/2017 Migraine without aura and wi thout status migrainosus, not intractable 05/01/2016 08/20/2021 Benign neoplasm of colon 09/18/200811/2018 Overview: benign polyp--repeat 5 years --> 2014 WNL. Personal history of other di sorder of urinary system 06/16/2007 05/19/2017 Headache 06/05/2006 05/19/2017 Overview: ICD-10 update of inactive term Tobacco use disorder 01/18/1998 019 Postmenopausal bleeding 11/23 documented as of this encounter (statuses as of 09/28/2023) Immunizations Name Administration Dates Next Due COVID-19 mRNA, LNP-s, No Pre serve, 2-Dose Series ([employer]) 07/23/2021,11/12/2020,10/17/2020 Covid-19, Mrna, Lnp-s, Pf, B ivalent, [...] encounter Miscellaneous Notes * Telephone Encounter - Jessica Burnette RT (R) - 09/28/2023 11:39 AM EST Name: Antionette Russell Do you have any of the following: Pacemaker, stents, heart valves, aneurysm clips? No Have you ever worked with metal or have you ever gotten metal in your eyes? No Have you had a colonoscopy in the last 30 days? No On dialysis? No Do you have any dermals or body piercing's? No or ? Do you wear an insulin pump or diabetic monitor? no RT Hero (R) documented in this encounter Plan of Treatment Upcoming Encounters Date Type Department Care Team (Late st Contact Info) Description 09/29/2023 7:00 AM EST Imaging Radiology [address] [facility] [place] [address] 03/01/2024 9:00 AM EDT Office Visit Family Practice [facility] [address] [facility] [place] [address] Magy Valles DO [address] [place] [address] 06/13/2024 9:30 AM EDT Imaging Radiology [address] [place] [address] Scheduled Procedures Name Priority Associated Diagnoses Date/Ti me COLONOSCOPY FLEXIBLE PROXIMAL DIAGNOSTIC Recall Hx of colonic polyps Health Maintenance Due Date Last Done Comments LUNG CANCER SCREENING - USE SMARTSET 75529 2000 Depression Screening 11/22/2022 11/22/2021 COVID-19 Vaccine [...] this encounter Medical Devices Implanted Type Area Operations Recruiter Device Identifier Shelf Expiration Date Model / Serial / Lot Implant-01/22/2005 Implanted:Qty: 2 on 01/22/2005 Breast Description:Saline breast im plants Lens Intraoc 13.5 - [id number] - [id number] Implanted:Qty: 1 on 09/30/2016 by Malcolm Hartman MD at OR [facility] Right: Eye [employer] 03/23/2021 [id number] / [id number] / [id number] Lens Intraoc 13.5 - [id number] - [id number] Implanted:Qty: 1 on 10/14/2016 by Malcolm Hartman MD at OR [facility] Left: Eye [employer]OM[employer] 04/23/2021 [id number] / [id number] / [id number] Biocomposite Swivelock Suture [place] Implanted:Qty: 2 on 12/07/2017 by Corinna Servin DO at OR [facility] Right: Shoulder [employer] 04/23/2019 [id number] T-2 / / [id number] Screw 2.7x14mm - [id number] Implanted:Qty: 1 on 05/16/2022 by Selwyn Donato MD at OR [facility] Left: Wrist SAVAGE : ORTHOPAEDICS [id number] / / documented as of this encounter [...] the patient have Health Care Power of Atmospheric Sciences Professor? No Code Status History Code Status Date [...] and were consensually agreed upon. Care Teams Supervisor Research Shop Relationship Specialty Start Date End Date Magy Valles DO [address] [place] [address] PCP - General Family Medicine 12/12/15 documented as of this encounter
--- OUTSIDE RECORDS SUMMARY | 2023-10-13 07:56 | External Medical Summary | Summary of Care ---
Author Name Unknown Organization [facility] [address] [facility] [address] Phone [phone] Care Team Providers Care Distribution Operations Supervisor Name Role Phone ZhaoMagy hall Carlos RUFFIN Primary Care Provider [phone] [phone] Encounter Details Date Type Department Care Team Description 01/28/2023 Telephone Orthopaedics [facility] [address] [place] [address] Sheldon Welch MD [address] [place] [address] Allergies No known active allergiesdocumented as of this encounter (statuses as of 06/08/2023) Medications Medication Sig Dispensed Refills Start Date End Date Status Multiple Vitamins-Minerals (MULTI FOR HER 50+) CAPS Take by mouth. 0 Active [place]-3 Fatty Acids (FISH OIL) 500 MG Capsule [...] DAILY 90 Tablet 0 11/15/2022 11/15/2023 Active hydrOXYzine HCl 50 MG Oral TabletIndications :Insomnia, unspecified type TAKE ONE TABLET BY MOUTH TWICE DAILY NEEDED FOR ANXIETY AND INSOMNIA 180 Tablet 1 05/01/2022 05/19/2023 Discontinued (Refill) amLODIPine Besylate 5 MG Oral Tablet (Norvasc)Indicati ons:HTN, goal below 140/90 Take 1 Tablet by mouth in the morning. 30 Tablet 5 09/09/2022 02/17/2023 Discontinued (Refill) traZODone HCl 100 MG Oral Tablet (Desyrel)Indicati ons:Insomnia, unspecified type TAKE ONE TABLET BY MOUTH AT BEDTIME 90 Tablet 0 11/03/2022 02/11/2023 Discontinued (Refill) busPIRone HCl 5 MG Oral Tablet (Buspar)Indicatio ns:DRE (generalized anxiety disorder) TAKE ONE TABLET BY MOUTH IN THE MORNING AND TAKE ONE TABLET BEFORE BEDTIME 60 Tablet 2 11/19/2022 02/11/2023 Discontinued (Refill) Atenolol 50 MG Oral Tablet (Tenormin)Indicat ions:HTN, goal below 140/90 TAKE ONE TABLET BY MOUTH IN THE MORNING 90 Tablet 0 01/26/2023 04/13/2023 Discontinued (Refill) documented as of this encounter (statuses as of 06/08/2023) Active Problems Problem Noted Date Ganglion cyst of dorsum of left wrist Other social stressor 02/19/2022 Prediabetes 08/05/2021 Overview: Per Prediabetes protocol HTN, goal below 140/90 10/13/2019 Anxiety state 04/08/2019 Restless leg syndrome 05/15/2010 ADVANCE DIRECTIVE INFORMATION 06/05/2006 Overview: Yes, Patient instructed to provide copy of advance directive for provider to review and to be scanned into Electronic Medical Record Family history of other cardiovascular d iseases 04/05/2002 Overview: ICD-10 update of inactive term ADJ DISORDER W/DEPRES MOOD 01/18/1998 documented as of this encounter (statuses as of 06/08/2023) Resolved Problems Problem Noted Date Resolved Date History of colon polyps 11/25/2018 12/28/19 20 Overview: Historical. Chronic tension-type headache, not intractable 0 05/01/2016 05/19/2017 Migraine without aura and wi thout status migrainosus, not intractable 05/01/2016 08/20/2021 Benign neoplasm of colon 09/18/2008 019 Overview: benign polyp--repeat 5 years --> 2013 WNL. Personal history of other disorder of urinary sy stem 06/16/2007 05/19/2017 Headache 06/05/2006 05/19/2017 Overview: ICD-10 update of inactive term Tobacco use disorder 01/18/1998 12/07/2018 Postmenopausal bleeding 12/12/19 15 documented as of this encounter (statuses as of 06/08/2023) Immunizations Name Administration Dates Next Due COVID-19 mRNA, LNP-s, No Pre serve, 2-Dose Series ([employer] [place]) 07/23/2021,11/12/2020,10/17/2020 Covid-19, Mrna, Lnp-s, Pf, B ivalent, 30 Mcg, IM, 12 yrs and above ([employer] [place]) 09/09/2022 Pneumococcal Conjugate Vacc, 13 Valent (Prevnar) [...] 0.6 oz pur e alcohol) very rare Alcohol Habits Answer Date Recorded How often do you have a drink containing alcohol ? 2-3 times a week 02/21/2020 How many drinks containing a lcohol do you have on a typical day when you are drinking? 1 or 2 02/21/2020 How often do you have six or more drinks on one occasion? Not asked Food Insecurity Answer Date Recorded Within the past 12 months, y ou worried that your food would run out before you got money to buy more. Never true 02/16/2023 Within the past 12 months, t he food you bought just didn't last and you didn't have money to get more. Never true 02/16/2023 Sex Assigned at Date Recorded Female 02/21/2020 12:53 PM EDT Job Start Date Occupation Industry Not on file Not on file Not on file documented as of this encounter Miscellaneous Notes * Telephone Encounter - OSCAR Aldana - 01/28/2023 3:00 PM EDT Called and left patient a voicemail to return call to schedule a return visit in about 3 months (around 04/30/2023) with Dr. Welch. documented in this encounter Plan of Treatment Upcoming Encounters Date Type Specialty Care Team Description 06/10/2023 Imaging Radiology 06/24/2023 Office Visit Orthopedics Moy Wilkes MD [address] [place] [address] 09/01/2023 Office Visit Family Medicine Magy Valles, DO [address] [place] [address] 03/01/2024 Office Visit Family Medicine Magy Valles, DO [address] [place] [address] Scheduled Procedures Name Priority Associated Diagnoses Date/Ti me COLONOSCOPY FLEXIBLE PROXIMAL DIAGNOSTIC Recall Hx of colonic polyps Health Maintenance Due Date Last Done Comments LUNG CANCER SCREENING - USE SMARTSET 83389 2000 Depression Screening 11/22/2022 11/22/2021 COVID-19 Vaccine ( season) 2023 09/09/2022, 07/23/2021, 11/12/2020, Additional history exists Influenza Vaccine (FLU shot) (#1) 2023 05/16/2022, 06/06/2021, 06/06/2020, Additional history exists Mammogram 06/09/2023 06/09/2022, 05/24, 06/05/2020, Additional history exists GFR 02/17/2024 02/16/2023, 03/2021, 06/12/2020, Additional history exists HbA1c 02/17/2024 02/16/2023, 01/23, 07/31/2021, Additional history exists COLONOSCOPY-EVERY 5 YRS AGES 18-100 05/10/2024 05/10/2019, 05/10/2019, 01/24/2014, Additional history exists DXA Scan 09/30/2024 09/30/2021, 03/25, 04/11/2009, Additional history exists Albumin/Creatinine Ratio 02/14/2025 02/14/2022 Lipid Panel 06/12/2025 06/12/2020, 04/24, 05/15/2010, Additional history exists DTaP,Tdap,and Td Vaccines (3 - Td or Tdap) 12/07/2028 12/07/2018, 12/07/2008 Pneumococcal Vaccine: 65+ Years Completed 05/25/2018, 05/15/2016, 12/07/2008 Zoster Vaccines Completed 04/08/2019, 050 09/2018, 05/19/2017 GARDASIL-HPV IMMUNIZATION SERIES Aged Out No longer eligible based on patient's age to complete this topic Hepatitis B Aged Out No longer eligi ble based on patient's age to complete this topic MENINGOCOCCAL (MENACTRA/MENVEO) Aged Out No longer eligible based on patient's age to complete this topic documented as of this encounter Medical Devices Implanted Type Area Home Office Claims Examiner Device Identifier Shelf Expiration Date Model / Serial / Lot Implant-01/22/2005 Implanted:Qty: 2 on 01/22/2005 Breast Description:Saline breast im plants Lens Intraoc 13.5 - [id number] - [id number] Implanted:Qty: 1 on 09/30/2016 by Malcolm Hartman MD at OR [facility] Right: Eye BAUSCH & LOMB 03/23/2021 [id number] / [id number] / [id number] Lens Intraoc 13.5 - [id number] - [id number] Implanted:Qty: 1 on 10/14/2016 by Malcolm Hartman MD at OR [facility] Left: Eye BAUSCH & LOMB 04/23/2021 [id number] / [id number] / [id number] Biocomposite Swivelock Suture [place] Implanted:Qty: 2 on 12/07/2017 by Corinna Servin DO at OR [facility] Right: Shoulder [employer] 04/23/2019 [id number] T-2 / / [id number] Screw 2.7x14mm - [id number] Implanted:Qty: 1 on 05/16/2022 by Selwyn Donato MD at OR [facility] Left: Wrist SAVAGE : ORTHOPAEDICS [id number] / / documented as of this encounter [...] the patient have Health Care Power of Hydrological Technical Officer? No Code Status History Code Status [...] and were consensually agreed upon. Care Teams Distribution Operations Supervisor Relationship Specialty Start Date End Date Magy Valles, DO [address] [place] [address] PCP - General Family Medicine 12/12/15 documented as of this encounter
--- OUTSIDE RECORDS SUMMARY | 2023-10-13 07:56 | External Medical Summary | Summary of Care ---
Author Name Unknown Organization [facility] Address [address] [facility] [place] [place] [address] Phone [phone] Care Team Providers Care Day Care Teacher Name Role Phone Magy Valles DO Primary Care Provider [phone] [phone] Reason for Visit * Reason Comments Medication Refill Encounter Details Date Type Department Care Team Description 05/18/[address] [facility] [address] [place] [address] Magy Valles DO [address] [place] [address] HTN, goal below 140/90 Allergies No known active allergiesdocumented as of this encounter (statuses as of 05/18/2023) Medications Medication Sig Dispensed Refills Start Date End Date Status Multiple Vitamins-Minerals (MULTI FOR HER 50+) CAPS Take by mouth. 0 Active [place]-3 Fatty Acids (FISH OIL) 500 MG Capsule [...] Oral Tablet Extended Release 24 Hour (Wellbutrin XL)Indications:Anxie ty state TAKE ONE TABLET BY MOUTH DAILY 90 Tablet 0 11/15/2022 11/15/2023 Active Calcium Carb-Cholecalciferol 500-10 MG-MCG Oral Tablet Take by mouth. 0 Active amLODIPine Besylate 5 MG Oral Tablet (Norvasc)Indications :HTN, goal below 140/90 Take 1 Tablet by mouth in the morning. 90 Tablet 3 02/17/2023 Active busPIRone HCl 10 MG Oral Tablet (Buspar)Indications: DRE (generalized anxiety disorder) Take 1 Tablet by mouth in the morning and 1 Tablet in the evening. 180 Tablet 3 02/17/2023 Active traZODone HCl 100 MG Oral Tablet (Desyrel)Indications :Insomnia, unspecified type TAKE ONE TABLET BY MOUTH AT BEDTIME 90 Tablet 3 03/21/2023 Active Atenolol 50 MG Oral Tablet (Tenormin)Indication s:HTN, goal below 140/90 TAKE ONE TABLET BY MOUTH IN THE MORNING 90 Tablet 0 04/13/2023 04/12/2024 Active documented as of this encounter (statuses as of 05/18/2023) Active Problems Problem Noted Date Ganglion cyst [...] as of this encounter (statuses as of 05/18/2023) Resolved Problems Problem Noted Date Resolved Date History of colon polyps 11/25/2018 12/28/19 Overview: Historical. Chronic tension-type headache, not intractable [...] as of this encounter (statuses as of 05/18/2023) Immunizations Name Administration Dates Next Due COVID-19 mRNA, LNP-s, No Pre serve, 2-Dose Series ([employer]) 07/23/2021,11/12/2020,10/17/2020 Covid-19, Mrna, Lnp-s, Pf, B ivalent, 30 Mcg, IM, 12 yrs and above ([employer]to) 09/09/2022 Pneumococcal Conjugate Vacc, 13 Valent (Prevnar) 05/15/2016 Pneumococcal Polysaccharide PPV23 (Pneumovax) 05/25/2018,12/07/2008 Season Influenza, Cell Culte r, 18+ Yrs, With Preserv (Flucelvax) 04/21/2014 Season Influenza, Quad, PF, Adjuvanted, 65+ Yrs, IM (FLUAD) 05/21/2020 Seasonal Influenza, PF, 6 mo ns & Above, IM , (Flulaval) 05/25/2018,05/19/2017 Seasonal Influenza, Quadriva lent Hd (Fluzone [...] encounter Miscellaneous Notes * Telephone Encounter - Xiomara Cesar CPhT - 05/18/2023 10:07 AM EDTNo prescriptions requested or ordered in this encounter documented in this encounter Plan of Treatment Upcoming Encounters Date Type Specialty Care Team Description 06/10/2023 Imaging Radiology 06/24/2023 Office Visit Orthopedics Moy Wilkes MD [address] [place] [address] 09/01/2023 Office Visit Family Medicine Magy Valles DO [address] [place] [address] 03/01/2024 Office Visit Family Medicine Magy Valles, DO [address] [place] [address] Scheduled Procedures Name Priority Associated Diagnoses Date/Ti me COLONOSCOPY FLEXIBLE PROXIMAL DIAGNOSTIC Recall Hx of colonic polyps Health Maintenance Due Date Last Done Comments LUNG CANCER SCREENING - USE SMARTSET 65871 2000 Depression Screening 11/22/2022 11/22/2021 Influenza Vaccine (FLU shot) (#1) 2023 05/16/2022, [...] 12/07/2008 Zoster Vaccines Completed 04/08/2019, 0509/2018, 05/19/2017 COVID-19 Vaccine Completed 09/09/2022, , 11/12/2020, Additional history exists GARDASIL-HPV IMMUNIZATION SERIES Aged Out No longer eligible based on patient's age to complete this topic Hepatitis B Aged Out No longer eligi ble based on patient's age to complete this topic MENINGOCOCCAL (MENACTRA/MENVEO) Aged Out No longer eligible based on patient's age to complete this topic documented as of this encounter Medical Devices Implanted Type Area Explosive Ordnance Technician Device Identifier Shelf Expiration Date Model / Serial / Lot Implant-01/22/2005 Implanted:Qty: 2 on 01/22/2005 Breast Description:Saline breast im plants Lens Intraoc 13.5 - [id number] - [id number] Implanted:Qty: 1 on 09/30/2016 by Malcolm Hartman MD at OR [facility] Right: Eye BAUSCH & LOMB 03/23/2021 [id number] / [id number] / [id number] Lens Intraoc 13.5 - [id number] - [id number] Implanted:Qty: 1 on 10/14/2016 by Malcolm Hartman MD at OR [facility] Left: Eye BAUSCH [employer] LOMB 04/23/2021 [id number] / [id number] / [id number] Biocomposite Swivelock Suture [place] Implanted:Qty: 2 on 12/07/2017 by Corinna Servin DO at OR [facility] Right: Shoulder [employer] 04/23/2019 [id number] T-2 / / [id number] Screw 2.7x14mm - [id number] Implanted:Qty: 1 on 05/16/2022 by Selwyn Donato MD at OR [facility] Left: Wrist SAVAGE : ORTHOPAEDICS [id number] / / documented as of this encounter Visit Diagnoses Diagnosis HTN, goal below 140/90 Unspecified essential hypertension documented in this encounter Advance Directives Latest [...] the patient have Health Care Power of Retail Loan Originator Assistant? No Code Status History Code Status Date [...] and were consensually agreed upon. Care Teams Day Care Teacher Relationship Specialty Start Date End Date Magy Valles, DO [address] [place] [address] PCP - General Family Medicine 12/12/15 documented as of this encounter
--- OUTSIDE RECORDS SUMMARY | 2023-10-13 07:56 | External Medical Summary | Summary of Care ---
Author Name Unknown Organization [facility] Address [address] [place] [facility] [place] [address] Phone [phone] Care Team Providers Care Cellophane Press Operator Name Role Phone Magy Valles DO Primary Care Provider [phone] Reason for Visit * Reason Comments Medication Refill Encounter Details Date Type Department Care Team Description 05/15/2023 Refill Family Practice [facility] [address] [place] [address] Magy Valles DO [address] [place] [address] HTN, goal below 140/90 Allergies No known active allergiesdocumented as of this encounter (statuses as of 05/16/2023) Medications Medication Sig Dispensed Refills Start Date End Date Status Multiple Vitamins-Minerals (MULTI FOR HER 50+) CAPS Take by mouth. 0 Active [place]-3 Fatty Acids (FISH OIL) 500 MG Capsule [...] as of this encounter (statuses as of 05/16/2023) Active Problems Problem Noted Date Ganglion cyst [...] as of this encounter (statuses as of 05/16/2023) Resolved Problems Problem Noted Date Resolved Date [...] as of this encounter (statuses as of 05/16/2023) Immunizations Name Administration Dates Next Due COVID-19 mRNA, LNP-s, No Pre serve, 2-Dose Series ([employer]) 07/23/2021,11/12/2020,10/17/2020 Covid-19, Mrna, Lnp-s, Pf, B ivalent, 30 Mcg, IM, 12 yrs and above ([employer]) 09/09/2022 Pneumococcal Conjugate Vacc, 13 Valent (Prevnar) [...] encounter Miscellaneous Notes * Telephone Encounter - Rocky Dick RPh - 05/16/2023 12:59 PM EDT Refused Prescriptions: Disp Refills Atenolol 50 MG Oral Tablet (Tenormin) 90 Tab*0 Sig: TAKE ONE TABLET BY MOUTH IN THE MORNINGRefused By: ROCKY DICK for Refusal: Duplicate Request-- documented in this encounter Plan of Treatment Upcoming Encounters Date Type Specialty Care Team Description 06/10/2023 Imaging Radiology 06/24/2023 Office Visit Orthopedics Moy Wilkes MD [address] [facility] [place] [address] 09/01/2023 Office Visit Family Medicine Magy Valles, DO [address] [place] [address] 03/01/2024 Office Visit Family Medicine Magy Valles, DO [address] [place] [address] Scheduled Procedures Name Priority Associated Diagnoses Date/Ti me COLONOSCOPY FLEXIBLE PROXIMAL DIAGNOSTIC Recall Hx of colonic polyps Health Maintenance Due Date Last Done Comments LUNG CANCER SCREENING - USE SMARTSET 80557 2000 Depression Screening 11/22/2022 11/22/2021 Influenza Vaccine [...] Zoster Vaccines Completed 04/08/2019, 05/0 09/2018, 05/19/2017 COVID-19 Vaccine Completed 09/09/2022, , 11/12/2020, [...] this encounter Medical Devices Implanted Type Area Conservator Artifacts Device Identifier Shelf Expiration Date Model / Serial / Lot Implant-01/22/2005 Implanted:Qty: 2 on 01/22/2005 Breast Description:Saline breast im plants Lens Intraoc 13.5 - [id number] - [id number] Implanted:Qty: 1 on 09/30/2016 by Malcolm Hartman MD at OR [facility] Right: Eye BAUSCH [employer] LOMB 03/23/2021 [id number] / [id number] / [id number] Lens Intraoc 13.5 - [id number] - [id number] Implanted:Qty: 1 on 10/14/2016 by Malcolm Hartman MD at OR [facility] Left: Eye BAUSCH [employer] LOMB 04/23/2021 [id number] / [id number] / [id number] Biocomposite Swivelock Suture [place] Implanted:Qty: 2 on 12/07/2017 by Corinna Servin DO at OR [facility] Right: Shoulder [employer] 04/23/2019 [id number] T-2 / / [id number] Screw 2.7x14mm - [id number] Implanted:Qty: 1 on 05/16/2022 by Selwyn Donato MD at OR [facility] Left: Wrist SAVAGE : ORTHOPAEDICS [id number] / / documented as of this encounter [...] the patient have Health Care Power of Nurse Supervisor? No Code Status History Code Status Date [...] and were consensually agreed upon. Care Teams Cellophane Press Operator Relationship Specialty Start Date End Date Magy Valles, DO [address] [place] [address] PCP - General Family Medicine 12/12/15 documented as of this encounter
--- OUTSIDE RECORDS SUMMARY | 2023-10-13 07:56 | External Medical Summary | Summary of Care ---
Author Name Unknown Organization [facility] Address [address] [place] [facility] [place] [address] Phone [phone] Care Team Providers Care Chief Reservoir Engineering Name Role Phone Layton Segal DO Primary Care Provider [phone] Reason for Visit * Reason Comments Medication Refill Encounter Details Date Type Department Care Team Description 05/19/2023 Refill Family Practice [facility] [address] [place] [address] Layton Segal DO [address] [place] [address] Insomnia, unspecified type Allergies No known active allergiesdocumented as of this encounter (statuses as of 05/19/2023) Medications Medication Sig Dispensed Refills Start Date End Date Status Multiple Vitamins-Minerals (MULTI FOR HER 50+) CAPS Take by mouth. 0 Active [place]-3 Fatty Acids (FISH OIL) 500 MG Capsule [...] 03/21/2023 Active Atenolol 50 MG Oral Tablet (Tenormin)Indicatio ns:HTN, goal below 140/90 TAKE ONE TABLET BY MOUTH IN THE MORNING 90 Tablet 0 04/13/2023 04/12/2024 Active hydrOXYzine HCl 50 MG Oral TabletIndications:I nsomnia, unspecified type TAKE 1 TABLET BY MOUTH TWICE DAILY NEEDED FOR ANXIETY AND INSOMNIA 180 Tablet 1 05/19/2023 05/18/2024 Active documented as of this encounter (statuses as of 05/19/2023) Active Problems Problem Noted Date Ganglion cyst [...] as of this encounter (statuses as of 05/19/2023) Resolved Problems Problem Noted Date Resolved Date [...] as of this encounter (statuses as of 05/19/2023) Immunizations Name Administration Dates Next Due COVID-19 mRNA, LNP-s, No Pre serve, 2-Dose Series ([employer]) 07/23/2021,11/12/2020,10/17/2020 Covid-19, Mrna, Lnp-s, Pf, B ivalent, [...] encounter Miscellaneous Notes * Telephone Encounter - Layton Segal DO - 05/19/2023 12:04 PM EDTSigned Prescriptions: Disp Refills hydrOXYzine HCl 50 MG Oral Tablet 180 Ta*1 Sig: TAKE ONE TABLET BY MOUTH TWICE DAILY NEEDED FOR ANXIETY AND INSOMNIAAuthorizing Provider: LAYTON SEGAL------ documented in this encounter Plan of Treatment Upcoming Encounters Date Type Specialty Care Team Description 06/10/2023 Imaging Radiology 06/24/2023 Office Visit Orthopedics Moy Wilkes MD [address] [place] [address] 09/01/2023 Office Visit Family Medicine Layton Segal, DO [address] [place] [address] 03/01/2024 Office Visit Family Medicine Layton Segal, DO [address] [place] [address] Scheduled Procedures Name Priority Associated Diagnoses Date/Ti me COLONOSCOPY FLEXIBLE PROXIMAL DIAGNOSTIC Recall Hx of colonic polyps Health Maintenance Due Date Last Done Comments LUNG CANCER SCREENING - USE SMARTSET 26641 2000 Depression Screening 11/22/2022 11/22/2021 Influenza Vaccine [...] this encounter Medical Devices Implanted Type Area Meat Apprentice Device Identifier Shelf Expiration Date Model / Serial / Lot Implant-01/22/2005 Implanted:Qty: 2 on 01/22/2005 Breast Description:Saline breast im plants Lens Intraoc 13.5 - [id number] - [id number] Implanted:Qty: 1 on 09/30/2016 by Malcolm Hartman MD at OR [facility] Right: Eye BAUSCH & LOMB 03/23/2021 [id number] / [id number] / [id number] Lens Intraoc 13.5 - [id number] - [id number] Implanted:Qty: 1 on 10/14/2016 by Malcolm Hartman MD at OR [facility] Left: Eye BAUSCH & LOMB 04/23/2021 [id number] / [id number] / [id number] Biocomposite Swivelock Suture [place] Implanted:Qty: 2 on 12/07/2017 by Corinna Servin DO at OR [facility] Right: Shoulder [employer] 04/23/2019 [id number] T-2 / / [id number] Screw 2.7x14mm - [id number] Implanted:Qty: 1 on 05/16/2022 by Selwyn Donato MD at OR [facility] Left: Wrist SAVAGE : ORTHOPAEDICS [id number] / / documented as of this encounter Visit Diagnoses Diagnosis Insomnia, unspecified type documented in this encounter Advance Directives Latest [...] the patient have Health Care Power of Material Handler Loader? No Code Status History Code Status Date [...] and were consensually agreed upon. Care Teams Chief Reservoir Engineering Relationship Specialty Start Date End Date Layton Segal, [address] [place] [address] PCP - General Family Medicine 12/12/15 documented as of this encounter
--- OUTSIDE RECORDS SUMMARY | 2023-10-13 07:56 | External Medical Summary | Summary of Care ---
Author Name Unknown Organization [facility] Address [address] [facility] [place] [address] Phone [phone] Care Team Providers Care Referral Manager Name Role Phone Layton Segal DO Primary Care Provider [phone] Reason for Visit * Reason Comments Medication Refill Encounter Details Date Type Department Care Team (Late st Contact Info) Description 07/05/2023 Refill Family Practice [facility] [address] [place] [address] Layton Segal DO [address] [place] [address] HTN, goal below 140/90 Allergies No known active allergiesdocumented as of this encounter (statuses as of 07/06/2023) Medications Medication Sig Dispensed Refills Start Date End Date Status Multiple Vitamins-Minerals (MULTI FOR HER 50+) CAPS Take by mouth. 0 Active [place]-3 Fatty Acids (FISH OIL) 500 MG Capsule [...] 90 Tablet 0 11/15/2022 11/15/2023 Active Calcium Carb-Cholecalcife rol 500-10 MG-MCG Oral [...] 05/18/2024 Active Atenolol 50 MG Oral Tablet (Tenormin)Indicat ions:HTN, goal below 140/90 TAKE ONE TABLET BY MOUTH IN THE MORNING 90 Tablet 2 07/06/2023 Active Atenolol 50 MG Oral Tablet (Tenormin)Indicat ions:HTN, goal below 140/90 TAKE ONE TABLET BY MOUTH IN THE MORNING 90 Tablet 0 04/13/2023 07/05/2023 Discontinued (Refill) documented as of this encounter (statuses as of 07/06/2023) Active Problems Problem Noted Date Diagnosed Date [...] as of this encounter (statuses as of 07/06/2023) Resolved Problems Problem Noted Date Diagnosed Date [...] as of this encounter (statuses as of 07/06/2023) Immunizations Name Administration Dates Next Due COVID-19 mRNA, LNP-s, No Pre serve, 2-Dose Series (VEEDIMS) 07/23/2021,11/12/2020,10/17/2020 Covid-19, Mrna, Lnp-s, Pf, B ivalent, 30 Mcg, IM, 12 yrs and above (VEEDIMS) 09/09/2022 Pneumococcal Conjugate Vacc, 13 Valent (Prevnar) [...] encounter Miscellaneous Notes * Telephone Encounter - Susana Coley [facility] - 07/06/2023 11:17 AM ESTSigned Prescriptions: Disp Refills Atenolol 50 MG Oral Tablet (Tenormin) 90 Tab*2 Sig: TAKE ONE TABLET BY MOUTH IN THE MORNINGAuthorizing Provider: LAYTON SEGAL User: SUSANA COLEY- documented in this encounter Plan of Treatment Upcoming Encounters Date Type Department Care Team (Late st Contact Info) Description 09/01/2023 8:20 AM EST Office Visit [facility] [address] [place] [address] Layton Segal, DO [address] [place] [address] 03/01/2024 9:00 AM EDT Office Visit [facility] [address] [place] [address] Layton Segal, [address] [place] [address] 06/13/2024 9:30 AM EDT Imaging Radiology [address] [place] [address] Scheduled Procedures Name Priority Associated Diagnoses Date/Ti me COLONOSCOPY FLEXIBLE PROXIMAL DIAGNOSTIC Recall Hx of colonic polyps Health Maintenance Due Date Last Done Comments LUNG CANCER SCREENING - USE SMARTSET 13077 2000 Depression Screening 11/22/2022 11/22/2021 COVID-19 Vaccine [...] this encounter Medical Devices Implanted Type Area Dye Range Operator Device Identifier Shelf Expiration Date Model / Serial / Lot Implant-01/22/2005 Implanted:Qty: 2 on 01/22/2005 Breast Description:Saline breast im plants Lens Intraoc 13.5 - [id number] - [id number] Implanted:Qty: 1 on 09/30/2016 by Malcolm Hartman MD at OR [facility] Right: Eye [employer]OMB 03/23/2021 [id number] / [id number] / [id number] Lens Intraoc 13.5 - [id number] - [id number] Implanted:Qty: 1 on 10/14/2016 by Malcolm Hartman MD at OR [facility] Left: Eye BAUSCH [employer] LOMB 04/23/2021 [id number] / [id number] Biocomposite Swivelock Suture [place] Implanted:Qty: 2 on 12/07/2017 by Corinna Servin DO at OR [facility] Right: Shoulder [employer] 04/23/2019 [id number] T-2 / / [id number] Screw 2.7x14mm - [id number] Implanted:Qty: 1 on 05/16/2022 by Selwyn Donato MD at OR [facility] Left: Wrist SAVAGE : ORTHOPAEDICS [id number] / / documented as of this encounter [...] the patient have Health Care Power of Cooker Mechanic? No Code Status History Code Status Date [...] and were consensually agreed upon. Care Teams Referral Manager Relationship Specialty Start Date End Date Layton Segal DO [address] [place] [address] PCP - General Family Medicine 12/12/15 documented as of this encounter
--- OUTSIDE RECORDS SUMMARY | 2023-10-13 07:56 | External Medical Summary | Summary of Care ---
Author Name Unknown Organization [facility] Address [address] [facility] [address] Phone [phone] Care Team Providers Care Credit Control Clerk Name Role Phone Layton Segal DO Primary Care Provider [phone] [phone] Reason for Visit * Reason Comments Medication Refill Encounter Details Date Type Department Care Team (Late st Contact Info) Description 01/25/2023 Refill Family Practice [facility] [address] [place] [address] Layton Segal DO [address] [place] [address] Prediabetes*; HTN, goal below 140/90; Encounter for long-term (current) use of medications Allergies No known active allergiesdocumented as of this encounter (statuses as of 07/01/2023) Medications Medication Sig Dispensed Refills Start Date End Date Status Multiple Vitamins-Minerals (MULTI FOR HER 50+) CAPS Take by mouth. 0 Active [place]-3 Fatty Acids (FISH OIL) 500 MG Capsule [...] 30 Tablet 5 09/09/2022 02/17/2023 Discontinued (Refill) Atenolol 50 MG Oral Tablet (Tenormin)Indicat ions:HTN, goal below 140/90 TAKE ONE TABLET BY MOUTH IN THE MORNING 90 Tablet 0 10/10/2022 01/25/2023 Discontinued (Refill) traZODone HCl 100 MG Oral [...] as of this encounter (statuses as of 07/01/2023) Active Problems Problem Noted Date Diagnosed Date [...] as of this encounter (statuses as of 07/01/2023) Resolved Problems Problem Noted Date Diagnosed Date [...] as of this encounter (statuses as of 07/01/2023) Immunizations Name Administration Dates Next Due COVID-19 mRNA, LNP-s, No Pre serve, 2-Dose Series (ezNetPay) 07/23/2021,11/12/2020,10/17/2020 Covid-19, Mrna, Lnp-s, Pf, B ivalent, 30 Mcg, IM, 12 yrs and above (ezNetPay) 09/09/2022 Pneumococcal Conjugate Vacc, 13 Valent (Prevnar) [...] encounter Miscellaneous Notes * Telephone Encounter - Ryanne Pate, lumber planer - 07/01/2023 3:43 PM EST Labs and OV with PCP completed Thank you, Ryanne Herlinda Accounting Representative [facility] (formerly [facility]) [phone] 07/01/2023,3:43 PM * Telephone Encounter - Darion Yun RPh - 01/26/2023 3:27 PM EDTSigned Prescriptions: Disp Refills Atenolol 50 MG Oral Tablet (Tenormin) 90 Tab*0 Sig: TAKE ONE TABLET BY MOUTH IN THE MORNINGAuthorizing Provider: LAYTON SEGAL User: DARION YUN------- * Telephone Encounter - Darion Yun RPh - 01/26/2023 3:25 PM EDT Provided 90 days supply with 0 refill. Per refill protocol patient should have CMP, A1C on file within past year. Reviewed AMP report, Care Gaps/Health Maintenance, medications list, and for any routine labs typically ordered for this patient. Lab orders placed. Please contact patient to schedule office visit with her PRIMARY CARE and advise of labs ordered for blood draw.. Fasting is not required. Advise to obtain labs before requesting the next refill. Last Visit: 08/26/2022 (in office), 08/28/2020 (telemedicine) Next Visit: 02/17/2023 Darion Zuniga PharmD Clinical Pharmacist [facility] [phone] 01/26/2023, 3:26 PM documented in this encounter Plan of Treatment Upcoming Encounters Date Type Department Care Team (Late st Contact Info) Description 09/01/2023 8:20 AM EST Office Visit [address] [place] [address] Layton Segal, DO [address] [place] [address] 03/01/2024 9:00 AM EDT Office Visit Family Practice [facility] [address] [place] [address] Layton Segal, DO [address] [place] [address] 06/13/2024 9:30 AM EDT Imaging Radiology [address] [place] [address] Scheduled Procedures Name Priority Associated Diagnoses Date/Ti me COLONOSCOPY FLEXIBLE PROXIMAL DIAGNOSTIC Recall Hx of colonic polyps Health Maintenance Due Date Last Done Comments LUNG CANCER SCREENING - USE SMARTSET 93836 2000 Depression Screening 11/22/2022 11/22/2021 COVID-19 Vaccine ( season) 2023 09/09/2022, 07/23/2021, 11/12/2020, Additional history exists Influenza Vaccine (FLU shot) (#1) 2023 05/16/2022, 06/06/2021, 06/06/2020, Additional history exists GFR 02/17/2024 02/16/2023, 1203/2021, 06/12/2020, Additional history exists HbA1c 02/17/2024 02/16/2023, [...] this encounter Medical Devices Implanted Type Area Pump Servicer Helper Device Identifier Shelf Expiration Date Model / Serial / Lot Implant-01/22/2005 Implanted:Qty: 2 on 01/22/2005 Breast Description:Saline breast im plants Lens Intraoc 13.5 - [id number] - [id number] Implanted:Qty: 1 on 09/30/2016 by Malcolm Hartman MD at OR [facility] Right: Eye BAUSCH [employer] LOMB 03/23/2021 [id number] / [id number] / [id number] Lens Intraoc 13.5 - [id number] - [id number] Implanted:Qty: 1 on 10/14/2016 by Malcolm Hartman MD at OR [facility] Left: Eye BAUSCH [employer] LOMB 04/23/2021 [id number] / [id number] / [id number] Biocomposite Swivelock Suture [place] Implanted:Qty: 2 on 12/07/2017 by Corinna Servin DO at OR [facility] Right: Shoulder [employer] 04/23/2019 [id number] T-2 / / [id number] Screw 2.7x14mm - [id number] Implanted:Qty: 1 on 05/16/2022 by Selwyn Donato MD at OR [facility] Left: Wrist SAVAGE : ORTHOPAEDICS [id number] / / documented as of this encounter Results * (ABNORMAL) HEMOGLOBIN A1C (02/16/2023 10:32 AM EDT) Hemoglobin A1C 6.0(H) 4.0 - 5.6 % 02/16/2023 9:22 PM EDT [facility] Comment:The use of HbA1c to monitor glycemic status is based on normal hemoglobin and HbA composition. This test should not be used in patients with abnormal hemoglobin that affects the half life of the red blood cell or the in vivo glycation rates. Estimated Average Glucose 126(H) <126 mg/dL 02/16/2023 9:22 PM EDT [facility] Blood Venous blood specimen / Unknown Venipuncture / Unknown 02/16/2023 10:32 AM EDT 02/16/2023 10:33 AM EDT Darion Yun [facility] LAB BLOOD ORDERABLES [facility] [address] [place] [address] documented in this encounter Visit Diagnoses Diagnosis Prediabetes- Primary Other abnormal glucose HTN, goal below 140/90 Unspecified essential hypertension Encounter for long-term (current) use of medications Encounter for long-term (current) use of other medications documented in this encounter Advance Directives Latest [...] patient have Health Care Power of Manager Willow? No Code Status History Code Status Date [...] and were consensually agreed upon. Care Teams Credit Control Clerk Relationship Specialty Start Date End Date Layton Segal DO [address] [place] [address] PCP - General Family Medicine 12/12/15 documented as of this encounter
[2023-10-13 08:08] LABS: BUN Creatinine Ratio 17.3 (10-20); Calcium 9.1 mg/dl (8.6-10.3); Est GFR (African American) 84.1 ml/min; Est GFR (Non-African American) 72.6 ml/min; Potassium 3.8 mmol/L (3.5-5.1)
[2023-10-13] MEDS: CEROVITE ADV FORMULA TAB PO SCH (08:55)
[2023-10-13] MEDS: ATENOLOL 50 MG TABLET PO SCH (08:56)
[2023-10-13] MEDS: busPIRone 5 MG TAB PO SCH (08:56)
[2023-10-13] MEDS: amLODIPine BESYLATE 5 MG TAB PO SCH (08:56)
[2023-10-13] MEDS: CALCIUM CARBONATE 1250MG TAB PO SCH (08:56)
[2023-10-13] MEDS ORDERED: NON-FORMULARY MEDICATION (Biotin 10 mg Tablet) PO SCH (09:00)
--- NOTE | 2023-10-13 10:28 | Orthopedic Consultation ---
Date of Consultation October 13, 2023 Assessment & Plan (1) Closed left ankle fracture: 72-year-old female with acute, displaced, angulated bimalleolar ankle fracture; nondisplaced third metatarsal fracture; subtle dorsal cortical fracture of the talar neck Patient will need surgical intervention to fix left bimalleolar ankle fracture. She is currently in a posterior short leg splint with stirrup and this was left in place. Nonweightbearing. N.p.o. until we are aware of surgical plan. Patient is being admitted under medicine service for ambulatory dysfunction. Will discuss with Dr. Espitia. Hold any anticoagulants. Ice and elevate and pain control per primary. Patient's case is complicated with her current history of left foot drop/weakness, paresthesias. She is to see a spinal surgeon in [facility] in November. Could consider neurology consult while patient is in-house. EMG of her lower extremity and lumbar MRI were completed 2 weeks ago. Patient has seen [facility] before but would like to move forward with us for ankle surgery. Will discuss with attending Dr. Espitia on surgical plan. History of Present Illness Reason for Consultation: Left bimalleolar ankle fracture Attending Physician: Kenn Yang MD History of Present Illness Antionette is a 72-year-old female who presented to the ED last evening after falling on ice. Past medical history significant for hypertension, sleep disorder and anxiety. She says that she has had frequent falls over the last year. She has been dealing with left lower extremity weakness, numbness, tingling and burning since January for which she has been seeing [facility] podiatry for. She has difficulty lifting her foot up and raising her big toe. She had an EMG done and an MRI of her lumbar spine about 2 weeks ago and she was referred to see a spine surgeon in [place] in November. She is supposed to see [facility] podiatry tomorrow for possible plantars fasciitis in her left foot. She denies any previous surgeries in her left ankle or foot. She did have a right rotator cuff repair done and a left wrist ORIF by Dr Lissette Hsieh who she says is no longer with [facility]. She does not ambulate with any walker or cane. She denies any new numbness or tingling since her fall last evening. She believes that the weakness in her leg contributed to her fall because she has a hard time picking her leg up and says that she drags her leg. She denies having any pain in her back. She denies any history of heart attack, blood clots, stroke. Denies history of MRSA infection. She is not on any anticoagulants. She recently ate a couple bites of breakfast this morning. She was placed in a trauma U-splint in the ED and reports that it is comfortable. She was having difficulty ambulating and is being admitted for ambulatory dysfunction. Since January she is aware that she will most likely need a surgery for her left ankle fractures and would like to move forward with us to do her surgery and postop care. Allergies Allergy/AdvReac Type Severity Reaction Status Date / Time No Known Allergies Allergy Unknown Verified 10/13/23 00:00 Home Medications Medication Instructions Recorded Confirmed Type amlodipine 5 mg tablet 5 mg PO QAM 10/12/23 10/12/23 History atenolol 50 mg tablet 50 mg PO QAM 10/12/23 10/12/23 History biotin 10 mg tablet 10 mg PO QAM 10/12/23 10/12/23 History buspirone 10 mg tablet 10 mg PO AMPM 10/12/23 10/12/23 History hydroxyzine HCl 50 mg tablet 50 mg PO BID PRN anxiety and 10/12/23 10/12/23 History insomnia lrrhphksniyx-dgqklptk-gnnrr acid 1 cap PO QAM 10/12/23 10/12/23 History 400 mcg-vitamin K 80 mcg capsule (Multi For Her 50 Plus) omega 1-brc-noq-fish oil 1,200 mg 1 cap PO QPM 10/12/23 10/12/23 History (144 mg-216 mg) capsule (Fish Oil) peg 400-propylene glycol (PF) 0.4 1 drp ophthalmic (eye) BID PRN Dry 10/12/23 10/13/23 History %-0.3 % eye drops in a dropperette Eyes (Systane (PF)) trazodone 100 mg tablet 100 mg PO HS 10/12/23 10/12/23 History vitamins A,C,X-qplz-cvlgtw 4,296 1 cap PO QPM 10/12/23 10/12/23 History mcg-226 mg-90 mg capsule (PreserVision AREDS) calcium carbonate 500 mg calcium 500 mg PO QAM 10/13/23 10/13/23 History (1,250 mg) tablet Patient History Medical History Hypertension Sleep disorder Anxiety Surgical History History of orthopedic surgery Rotator cuff repair, wrist ORIF, hand fracture Social History Smoking Status: Former smoker Tobacco Type: Cigarettes Hx Alcohol Use: Yes Alcohol type: wine Hx Substance Use: No Preferred Language: Albanian Meal Attendant Required: No Beliefs That Will Affect Care: None Current Living Situation: Spouse and Family Feels Safe at Home: Yes Assistive Devices: Glasses Review of Systems Review of Systems: Per HPI Physical Exam Physical Exam: Patient is lying in bed comfortably. Short leg trauma U-splint is in place. It is intact and fitting comfortably for the patient. She is able to flex and bend her knee. She has some discomfort with her knee no major knee effusion or breaks in the skin noted. She is able to wiggle all 5 of her toes. She is unable to raise her big toe. Toes are warm and pink. Capillary refill less than 2 seconds. Results & Data Vital Signs (Past 12 Hours) Vital Signs Pulse Pulse Resp BP BP Pulse Ox O2 Del Method 10/13/23 08:30 54 L 10/13/23 06:25 Room Air 10/13/23 05:30 50 L 16 132/62 95 10/13/23 05:00 51 L 18 125/54 L 94 10/13/23 04:00 51 L 14 113/60 96 10/13/23 03:33 58 L 10/13/23 03:30 56 L 16 152/72 H 98 10/13/23 00:08 87 18 154/84 H 97 Room Air Diagnostic Findings Ankle X-Ray 10/12/23 19:28 XR ankle LT min 3V routine, XR tibia fibula LT 2V, XR foot LT min 3V routine HISTORY: 72 years-old Female Fall, L lower extremity pain/injury acute pain of the foot, ankle, left/tibia and fibula status post fall COMPARISON: None TECHNIQUE: 2 views of the left ankle with 2 views of the left foot and 2 views of the left tibia and fibula. FINDINGS: ANKLE: There is acute comminuted distal fibular fracture which demonstrates mild apex medial angulation with 7 mm lateral displacement. There is an acute minimally displaced medial malleolar fracture. Moderate soft tissue swelling. Mild widening of the distal tibiofibular syndesmosis. Demineralized appearance of the bones. Limited exam secondary to positioning. FOOT: Acute nondisplaced fracture which is possibly incomplete involving the proximal metaphyseal aspect of the third metatarsal. Demineralized appearance of the bones with mostly mild multifocal osteoarthritis. Subtle dorsal cortical fracturing of the talar neck. TIBIA/FIBULA: No additional acute fracture or dislocation. IMPRESSION: 1. Acute distal fibular and medial malleolar fractures as above. 2. Acute nondisplaced third metatarsal fracture. 3. Subtle dorsal cortical fracture of the talar neck. ACT 112: Negative or not required by law. The above report was generated using voice recognition software. It may contain grammatical, syntax or spelling errors. Electronically signed by: Scot Cordoba M.D. 10/13/2023 6:57 AM Foot X-Ray 10/12/23 19:28 XR ankle LT min 3V routine, XR tibia fibula LT 2V, XR foot LT min 3V routine HISTORY: 72 years-old Female Fall, L lower extremity pain/injury acute pain of the foot, ankle, left/tibia and fibula status post fall COMPARISON: None TECHNIQUE: 2 views of the left ankle with 2 views of the left foot and 2 views of the left tibia and fibula. FINDINGS: ANKLE: There is acute comminuted distal fibular fracture which demonstrates mild apex medial angulation with 7 mm lateral displacement. There is an acute minimally displaced medial malleolar fracture. Moderate soft tissue swelling. Mild widening of the distal tibiofibular syndesmosis. Demineralized appearance of the bones. Limited exam secondary to positioning. FOOT: Acute nondisplaced fracture which is possibly incomplete involving the proximal metaphyseal aspect of the third metatarsal. Demineralized appearance of the bones with mostly mild multifocal osteoarthritis. Subtle dorsal cortical fra cturing of the talar neck. TIBIA/FIBULA: No additional acute fracture or dislocation. IMPRESSION: 1. Acute distal fibular and medial malleolar fractures as above. 2. Acute nondisplaced third metatarsal fracture. 3. Subtle dorsal cortical fracture of the talar neck. ACT 112: Negative or not required by law. The above report was generated using voice recognition software. It may contain grammatical, syntax or spelling errors. Electronically signed by: Scot Cordoba M.D. 10/13/2023 6:57 AM Hip/Pelvis X-Ray 10/12/23 19:28 XR hip LT 2V w pelvis HISTORY: 72 years-old Female Fall, L hip pain acute pain in the pelvis and left hip status post fall COMPARISON: None TECHNIQUE: AP view the pelvis with 2 views of the left hip FINDINGS: There is mild osteoarthritis of the hips. No acute fracture, dislocation or avascular necrosis. Unremarkable soft tissues. IMPRESSION: No acute fracture or dislocation. ACT 112: Negative or not required by law. The above report was generated using voice recognition software. It may contain grammatical, syntax or spelling errors. Electronically signed by: Scot Cordoba M.D. 10/13/2023 6:53 AM Tibia/Fibula X-Ray 10/12/23 19:28 XR ankle LT min 3V routine, XR tibia fibula LT 2V, XR foot LT min 3V routine HISTORY: 72 years-old Female Fall, L lower extremity pain/injury acute pain of the foot, ankle, left/tibia and fibula status post fall COMPARISON: None TECHNIQUE: 2 views of the left ankle with 2 views of the left foot and 2 views of the left tibia and fibula. FINDINGS: ANKLE: There is acute comminuted distal fibular fracture which demonstrates mild apex medial angulation with 7 mm lateral displacement. There is an acute minimally displaced medial malleolar fracture. Moderate soft tissue swelling. Mild widening of the distal tibiofibular syndesmosis. Demineralized appearance of the bones. Limited exam secondary to positioning. FOOT: Acute nondisplaced fracture which is possibly incomplete involving the proximal metaphyseal aspect of the third metatarsal. Demineralized appearance of the bones with mostly mild multifocal osteoarthritis. Subtle dorsal cortical fracturing of the talar neck. TIBIA/FIBULA: No additional acute fracture or dislocation.
[2023-10-13 12:40] LABS: Estimated Average Glucose 128 mg/dl; Hemoglobin A1C 6.1 % (4.5-5.6)
[2023-10-13] MEDS: oxyCODONE HCL IR 5 MG TAB (IMMEDIATE RELEASE) PO PRN (15:33)
[2023-10-13] MEDS: ACETAMINOPHEN 325 MG TAB PO PRN (19:34)
--- NOTE | 2023-10-13 19:49 | XRay Report ---
XR ankle LT 2V CLINICAL HISTORY: left ankle fracture TECHNIQUE: 2 views of the left ankle were obtained. Comparison: Comparison is made to left ankle radiographs 10/12/2023 FINDINGS: An overlying cast is in place. Bimalleolar fractures are again seen. Soft tissue swelling is seen abo ut the ankle. IMPRESSION: Bimalleolar fracture with interval placement of an overlying cast. ACT 112: Negative or not required by law. Electronically signed by: Manuel Roe M.D. 10/13/2023 7:48 PM
[2023-10-13] MEDS ORDERED: NON-FORMULARY MEDICATION (Vitamins A,C,E-Zinc-Copper [Preservision Areds] 4,296 mcg-226 mg PO SCH (21:00)
[2023-10-13] MEDS: hydrOXYzine HCl 25 MG TAB PO PRN (21:16)
[2023-10-13] MEDS: traZODone HCL 100 MG TAB PO SCH (21:25)
[2023-10-14 08:08] LABS: Hematocrit (blood only) 37.9 % (37.0-47.0); Mean Corpuscular Hemoglobin 30.3 pg (25.0-34.0); Mean Corpuscular Hgb Conc 34.3 g/dL (32.0-36.0); Mean Corpuscular Volume 88.3 fL (80.0-100.0); Mean Platelet Volume 9.9 fL (9.4-12.4); Platelet Count 310 K/uL (130-400); RDW Coefficient of Variation 14.1 % (11.5-14.5); RDW Standard Deviation 45.1 fL (36.4-46.3); Red Blood Count 4.29 M/uL (4.20-5.40); White Blood Count 10.23 K/ul (4.8-10.8)
[2023-10-14 08:29] LABS: BUN Creatinine Ratio 21.5 (10-20); Calcium 9.5 mg/dl (8.6-10.3); Creatinine Clr Calc Pharmacy 63.6 ml/min; Est GFR (African American) 86.7 ml/min; Est GFR (Non-African American) 74.8 ml/min; Phosphorus 3.6 mg/dl (2.5-4.9); Potassium 4.1 mmol/L (3.5-5.1)
--- NOTE | 2023-10-14 08:47 | XRay Report ---
XR ankle LT min 3V routine CLINICAL HISTORY: fracture, please do mortise view. Follow-up left ankle fracture. COMPARISON STUDY: Left ankle 10/13/2023. FINDINGS: No significant change in the mildly displaced bimalleolar left ankle fracture. Overlying sp lint obscures fine bony detail. No dislocation. The fractures demonstrate up to 3 mm of lateral displ acement. There is diffuse soft tissue swelling. The left foot fractures seen on the prior radiograph are obscured by the cast material. IMPRESSION: No significant change in the mildly displaced bimalleolar left ankle fracture. ACT 112: Negative or not required by law. Electronically signed by: Adán Duncan M.D. 10/14/2023 8:46 AM
[2023-10-14] MEDS: ONDANSETRON INJ 2 MG/ML 2 ML VIAL IV PRN (09:21)
[2023-10-14] MEDS: INFLUENZA VACCINE HIGH-DOSE (HD-IIV4) PF 65+ 0.7mL SYR IM ONE (09:30)
--- NOTE | 2023-10-14 09:41 | Orthopedic Progress Note ---
Date of Service October 14, 2023 Assessment & Plan (1) Closed left ankle fracture: Plan: Bimalleolar left ankle fracture. Seen in consultation by Dr. Espitia on October 13, 2023. Needs to maintain nonweightbearing left lower extremity. Encouraged elevation above her heart to relieve swelling in the leg. Ice as needed for pain or swelling. Physical therapy and Occupational Therapy today for gait training using walker or crutches. Keep splint on at all times. Keep it clean and dry. May wiggle toes and bend knee as tolerated. She is on Lovenox 40 mg daily for DVT prophylaxis. Will hold this on Thursday. Last dose being morning. Possible ORIF of her left ankle with Dr. Espitia on Thursday afternoon. Will make her NPO for Thursday. Will reevaluate skin on her left ankle to determine if ready for surgical procedure tomorrow. Consent not obtained, will obtain tomorrow if ready for surgery. Plan discussed with patient. She agrees to stay here another day. If ankle is too swollen or skin is not healthy tomorrow when evaluated and she can be discharged home and we can follow-up with her as an outpatient as surgery will need to be delayed further. She understands and agrees with the plan. Will reeval tomorrow morning. Findings from today discussed with Dr. Espitia. Admission and Anticipated Discharge Date Admission Date: October 13, 2023 Subjective Patient is resting in bed. Left ankle is elevated on pillows. She is doing better today. She states her pain is improved and she has more control over the splint. She is anxious to get up with physical therapy to see how she does nonweightbearing. I informed her that she is scheduled for surgery on Thursday and we will plan to look at her leg tomorrow to determine if her skin is ready for the procedure or not. Physical Exam Musculoskeletal: Left ankle elevated on pillows. Ankle splint is clean, dry and intact. She is able to wiggle her toes. Cap refill is brisk. Distal sensation is normal. She is able to lift her leg and bend her knee comfortably today. She is still unable to dorsiflex her great toe which is normal for her. Toes are warm. Results & Data Vital Signs (Past 12 Hours) Vital Signs Temp Pulse Pulse Resp BP Pulse Ox O2 Del Method 10/14/23 08:00 36.7 C 60 12 130/76 96 Room Air 10/14/23 07:04 36.7 C 62 14 167/81 H 93 Room Air Laboratory Results 10/14/23 10/13/23 Range/Units 07:33 07:20 WBC 10.23 (4.8-10.8) K/ul RBC 4.29 (4.20-5.40) M/uL Hgb 13.0 (12.0-16.0) g/dl Hct 37.9 (37.0-47.0) % MCV 88.3 (80.0-100.0) fL MCH 30.3 (25.0-34.0) pg MCHC 34.3 (32.0-36.0) g/dL RDW Std Deviation 45.1 (36.4-46.3) fL RDW Coeff of Bj 14.1 (11.5-14.5) % Plt Count 310 (130-400) K/uL MPV 9.9 (9.4-12.4) fL Sodium 137 (136-145) mmol/L Potassium 4.1 (3.5-5.1) mmol/L Chloride 104 (98-107) mmol/L Carbon Dioxide 26 (21-32) mmol/L Anion Gap 7 (3-11) BUN 17 (6-23) mg/dl Creatinine 0.79 (0.6-1.2) mg/dl Est Cr Clr Drug Dosing 63.6 ml/min Est GFR ( Amer) 86.7 ml/min Est GFR (Non-Af Amer) 74.8 ml/min BUN/Creatinine Ratio 21.5 H (10-20) Glucose 110 H (70-99(Fasting)) mg/dl Estimat Average Glucose 128 mg/dl Hemoglobin A1c 6.1 H (4.5-5.6) % Calcium 9.5 (8.6-10.3) mg/dl Phosphorus 3.6 (2.5-4.9) mg/dl Magnesium 2.0 (1.7-2.4) mg/dl 25-OH Vitamin D Total 36.8 (30-100) ng/ml
--- NOTE | 2023-10-14 14:16 | Electrocardiogram Report ---
Test Reason : Blood Pressure : / mmHG Vent. Rate : 059 BPM Atrial Rate : 059 BPM P-R Int : 150 ms QRS Dur : 090 ms QT Int : 404 ms P-R-T Axes : 064 030 055 degrees QTc Int : 399 ms Sinus bradycardia Nonspecific ST abnormality Abnormal ECG When compared with ECG of 06-FEB-2010 07:34, No significant change was found Confirmed by Phillip Moon ([id number]) on 10/14/2023 2:15:54 PM Referred By: REFERRED SELF Confirmed By:Moncho Moon
--- NOTE | 2023-10-14 16:40 | Hospitalist Progress Note ---
Date of Service October 14, 2023 Assessment & Plan (1) Closed left ankle fracture: Plan: 72-year-old female with past medical history significant for prediabetes, hypertension, angiomyolipoma of left kidney, restless leg syndrome, depression, anxiety, s/p fall on the ice on the left side and found to have left ankle fracture at presentation. She did not hit her head. No loss of consciousness. No blurred visions. No earache. No runny nose. No sore throat. No cough. No fevers. No chest pain. No shortness of breath. Currently no nausea. No abdominal pain. Normal bowel and bladder movements. Hemodynamics are stable. She is being managed for the following: Closed left ankle fracture Mechanical fall S/p cast Having ambulatory dysfunction Pain control, n.p.o. midnight of 10/16/2023. Orthopedics evaluating, will follow PT/OT. Hypertension: Continue home amlodipine and atenolol. Will monitor History of depression/ Anxiety: Continue home buspirone and trazodone Prediabetes, A1c of 6.1. Encourage lifestyle modification. DVT prophylaxis: Lovenox Disposition: Medical floor Full code Admission and Anticipated Discharge Date Admission Date: October 13, 2023 Subjective Patient was seen and examined at bedside. Patient was lying in bed, on room air, resting comfortably, NAD. Patient reports significant left foot pain with ambulation. Left ankle is elevated on pillow. Patient denies any headache/fever/chills/chest pain. Reports eating okay. Physical Exam Physical Exam: General- Not in distress Head- atraumatic Eyes- PERRL. ENT- oropharynx clear Neck- supple, no JVD. Lungs- clear to auscultation no wheezing or crackles Heart- regular rhythm; no murmur, no gallop. Abdomen- normal bowel sounds, soft, nontender, no distension. Extremities- Left lower extremity in splint. Neuro- alert, oriented PERRL, no facial palsy; no dysarthria; obeys simple commands. Skin- warm & dry Results & Data Results & Data Vital Signs (Past 12 Hours) Vital Signs Temp Pulse Pulse Resp BP Pulse Ox O2 Del Method 10/14/23 15:41 36.6 C 62 14 134/72 96 Room Air 10/14/23 12:05 36.9 C 60 14 130/70 95 Room Air 10/14/23 08:00 36.7 C 60 12 130/76 96 Room Air 10/14/23 07:04 36.7 C 62 14 167/81 H 93 Room Air
[2023-10-15 07:44] LABS: Hematocrit (blood only) 36.5 % (37.0-47.0); Hemoglobin 12.6 g/dl (12.0-16.0); Mean Corpuscular Hemoglobin 30.2 pg (25.0-34.0); Mean Corpuscular Hgb Conc 34.5 g/dL (32.0-36.0); Mean Corpuscular Volume 87.5 fL (80.0-100.0); Mean Platelet Volume 9.9 fL (9.4-12.4); Platelet Count 300 K/uL (130-400); RDW Coefficient of Variation 14.1 % (11.5-14.5); RDW Standard Deviation 45.1 fL (36.4-46.3); Red Blood Count 4.17 M/uL (4.20-5.40)
[2023-10-15 07:59] LABS: BUN Creatinine Ratio 22.7 (10-20); Calcium 9.3 mg/dl (8.6-10.3); Est GFR (African American) 91.7 ml/min; Est GFR (Non-African American) 79.1 ml/min; Phosphorus 3.3 mg/dl (2.5-4.9); Potassium 4.2 mmol/L (3.5-5.1)
--- NOTE | 2023-10-15 10:13 | Orthopedic Progress Note ---
Date of Service October 15, 2023 Assessment & Plan (1) Closed left ankle fracture: Plan: The patient was educated regarding today's findings. Conservative care measures were discussed. Given that she has minimal swelling, I think it is likely that she will have surgery tomorrow. Dr. Espitia will reassess her this afternoon and make the final determination. Continue with ice and elevation. Stay in the splint. No weight on the left leg. Call with any other concerns. Admission and Anticipated Discharge Date Admission Date: October 13, 2023 Subjective This 73-year-old female is seen today in her room, for reevaluation of her left ankle. She states she is still having some pain in the ankle. She is hoping that her surgery can be done tomorrow. She feels as though the splint has become more loose and she is hoping that is a sign of decreased swelling. She denies any numbness or tingling. She has still been able to move her toes. No other complaints at this time. Physical Exam Physical Exam: General: Well-developed, well-nourished, elderly female, in no acute distress. Sitting in bed. Alert and oriented. Conversive. Looks younger than her stated age. Skin: Warm and dry with good turgor. No rashes. She has no visible edema at the top of her splint. Separation of the cast padding down at her ankle reveals no significant swelling at the ankle itself. No fracture blisters are visible. The splint was not removed. Musculoskeletal: The patient has intact motor function of her knee and toes. Ankle motion was not attempted. Neurologic: Gross sensation is intact across each of the toes and the left foot by soft touch. Results & Data Vital Signs (Past 12 Hours) Vital Signs Temp Pulse Resp BP Pulse Ox O2 Del Method 10/15/23 07:40 36.8 C 63 16 151/76 H 94 Room Air Laboratory Results WBCs this morning are 10.4. Hemoglobin 12.6 and hematocrit 36.5. Platelets are 300,000 today. Sodium is 138, potassium 4.2, chloride 106. Anion gap of 6. BUN of 17 with creatinine 0.75. Glucose this morning was 116. Magnesium today was 2.0.
--- NOTE | 2023-10-15 12:16 | Hospitalist Progress Note ---
Date of Service October 15, 2023 Assessment & Plan (1) Closed left ankle fracture: Plan: 72-year-old female with past medical history significant for prediabetes, hypertension, angiomyolipoma of left kidney, restless leg syndrome, depression, anxiety, s/p fall on the ice on the left side and found to have left ankle fracture at presentation. She did not hit her head. No loss of consciousness. No blurred visions. No earache. No runny nose. No sore throat. No cough. No fevers. No chest pain. No shortness of breath. Currently no nausea. No abdominal pain. Normal bowel and bladder movements. Hemodynamics are stable. She is being managed for the following: Closed left ankle fracture Mechanical fall S/p cast Having ambulatory dysfunction Pain control, n.p.o. midnight of 10/16/2023. Orthopedics evaluating, plan for sx akilah. lovenox is on hold, npo midnight. PT/OT. Hypertension: Continue home amlodipine and atenolol. Will monitor History of depression/ Anxiety: Continue home buspirone and trazodone Prediabetes, A1c of 6.1. Encourage lifestyle modification. DVT prophylaxis: Lovenox Disposition: Medical floor Full code Admission and Anticipated Discharge Date Admission Date: October 13, 2023 Subjective Patient was seen and examined at bedside. Patient was lying in bed, on room air, resting comfortably, NAD. Patient reports significant left foot pain with ambulation. Left ankle is elevated on pillow. Reports improving pain, plan for NWB on left and possible sx akil[place]. Patient denies any headache/fever/chills/chest pain. Reports eating okay. Physical Exam Physical Exam: General- Not in distress Head- atraumatic Eyes- PERRL. ENT- oropharynx clear Neck- supple, no JVD. Lungs- clear to auscultation no wheezing or crackles Heart- regular rhythm; no murmur, no gallop. Abdomen- normal bowel sounds, soft, nontender, no distension. Extremities- Left lower extremity in splint. Neuro- alert, oriented PERRL, no facial palsy; no dysarthria; obeys simple commands. Skin- warm & dry Results & Data Results & Data Vital Signs (Past 12 Hours) Vital Signs Temp Pulse Resp BP Pulse Ox O2 Del Method 10/15/23 07:40 36.8 C 63 16 151/76 H 94 Room Air
[2023-10-16] MEDS ORDERED: SODIUM CHLORIDE 0.9% PF INJ 10 ML VIAL ONE (07:21)
[2023-10-16] MEDS ORDERED: ROPIVACAINE 0.5% 5 MG/ML 30 ML VIAL ONE (07:21)
[2023-10-16 08:27] LABS: Creatinine Clr Calc Pharmacy 61.8 ml/min; Est GFR (African American) 84.8 ml/min; Est GFR (Non-African American) 73.1 ml/min
--- NOTE | 2023-10-16 09:59 | Orthopedic Progress Note ---
Date of Service October 16, 2023 Assessment & Plan (1) Closed left ankle fracture: Plan: Plan is open reduction internal fixation of left ankle fracture with Dr. Espitia later this afternoon. Patient is agreeable to this. She hopes to be discharged home as an outpatient after the procedure. I advised her that she may need to be evaluated by PT/OT before discharge. Admission and Anticipated Discharge Date Admission Date: October 13, 2023 Subjective 73-year-old female seen this morning in regards to her left ankle fracture. Patient understands that she is on the OR schedule for open reduction internal fixation later this afternoon. Patient has some questions about being discharged. She hopes that she will be able to be discharged home. She plans on using a walker as an assistive device. I advised her that she could also purchase the knee scooter. She states that she does have a raised toilet seat at home and shower bench. Advised her that most likely physical therapy and Occupational Therapy will evaluate her before she is discharged. Currently she denies chest pain, shortness of breath, fever, chills, sweats or numbness or tingling in the left lower extremity. Review of Systems Review of Systems: All systems reviewed & are unremarkable except as noted in Subjective Physical Exam Physical Exam: Left lower extremity: Splint is clean dry and intact and left in place. Patient is able to perform active straight leg raise test. Her quad strength is 4 out of 5. She is able to easily flex her knee to 90 degrees without difficulty. She is able to detect light sensation to touch over the pads of all digits. Results & Data Vital Signs (Past 12 Hours) Vital Signs Temp Pulse Resp BP Pulse Ox O2 Del Method 10/16/23 07:26 37 C 72 16 127/70 94 Room Air Diagnostic Findings Laboratory Results WBC 10.40 K/ul (4.8-10.8) 10/15/23 07:04 RBC 4.17 M/uL (4.20-5.40) L 10/15/23 07:04 Hgb 12.6 g/dl (12.0-16.0) 10/15/23 07:04 Hct 36.5 % (37.0-47.0) L 10/15/23 07:04 MCV 87.5 fL (80.0-100.0) 10/15/23 07:04 MCH 30.2 pg (25.0-34.0) 10/15/23 07:04 MCHC 34.5 g/dL (32.0-36.0) 10/15/23 07:04 RDW Std Deviation 45.1 fL (36.4-46.3) 10/15/23 07:04 RDW Coeff of Bj 14.1 % (11.5-14.5) 10/15/23 07:04 Plt Count 300 K/uL (130-400) 10/15/23 07:04 MPV 9.9 fL (9.4-12.4) 10/15/23 07:04 Immature Gran % (Auto) 0.2 % 10/13/23 07:20 Neut % (Auto) 56.5 % 10/13/23 07:20 Lymph % (Auto) 32.5 % 10/13/23 07:20 Taney % (Auto) 8.2 % 10/13/23 07:20 Eos % (Auto) 1.7 % 10/13/23 07:20 Baso % (Auto) 0.9 % 10/13/23 07:20 Neut # (Auto) 4.97 K/uL (1.40-6.50) 10/13/23 07:20 Lymph # (Auto) 2.86 K/uL (1.20-3.40) 10/13/23 07:20 Taney # (Auto) 0.72 K/uL (0.11-0.59) H 10/13/23 07:20 Eos # (Auto) 0.15 K/uL (0.00-0.50) 10/13/23 07:20 Baso # (Auto) 0.08 K/uL (0.00-0.20) 10/13/23 07:20 Immature Gran # (Auto) 0.02 K/uL (0.01-0.20) 10/13/23 07:20 Sodium 138 mmol/L (136-145) 10/15/23 07:04 Potassium 4.2 mmol/L (3.5-5.1) 10/15/23 07:04 Chloride 106 mmol/L (98-107) 10/15/23 07:04 Carbon Dioxide 26 mmol/L (21-32) 10/15/23 07:04 Anion Gap 6 (3-11) 10/15/23 07:04 BUN 17 mg/dl (6-23) 10/15/23 07:04 Creatinine 0.80 mg/dl (0.6-1.2) 10/16/23 07:27 Est Cr Clr Drug Dosing 61.8 ml/min 10/16/23 07:27 Est GFR ( Amer) 84.8 ml/min 10/16/23 07:27 Est GFR (Non-Af Amer) 73.1 ml/min 10/16/23 07:27 BUN/Creatinine Ratio 22.7 (10-20) H 10/15/23 07:04 Glucose 116 mg/dl (70-99(Fasting)) H 10/15/23 07:04 Estimat Average Glucose 128 mg/dl 10/13/23 07:20 Hemoglobin A1c 6.1 % (4.5-5.6) H 10/13/23 07:20 Calcium 9.3 mg/dl (8.6-10.3) 10/15/23 07:04 Phosphorus 3.3 mg/dl (2.5-4.9) 10/15/23 07:04 Magnesium 2.0 mg/dl (1.7-2.4) 10/15/23 07:04 Total Bilirubin 0.5 mg/dl (0.2-1.0) 10/13/23 00:06 AST 23 U/L (13-39) 10/13/23 00:06 ALT 19 U/L (7-52) 10/13/23 00:06 Alkaline Phosphatase 62 U/L (34-104) 10/13/23 00:06 Total Protein 7.7 gm/dl (6.0-8.3) 10/13/23 00:06 Albumin 4.4 gm/dl (3.4-5.0) 10/13/23 00:06 Globulin 3.3 gm/dl (2.5-4.0) 10/13/23 00:06 Albumin/Globulin Ratio 1.3 (0.9-2) 10/13/23 00:06 25-OH Vitamin D Total 36.8 ng/ml (30-100) 10/14/23 07:33 Impressions Foot X-Ray 10/12/23 19:28 XR ankle LT min 3V routine, XR tibia fibula LT 2V, XR foot LT min 3V routine HISTORY: 72 years-old Female Fall, L lower extremity pain/injury acute pain of the foot, ankle, left/tibia and fibula status post fall COMPARISON: None TECHNIQUE: 2 views of the left ankle with 2 views of the left foot and 2 views of the left tibia and fibula. FINDINGS: ANKLE: There is acute comminuted distal fibular fracture which demonstrates mild apex medial angulation with 7 mm lateral displacement. There is an acute minimally displaced medial malleolar fracture. Moderate soft tissue swelling. Mild widening of the distal tibiofibular syndesmosis. Demineralized appearance of the bones. Limited exam secondary to positioning. FOOT: Acute nondisplaced fracture which is possibly incomplete involving the proximal metaphyseal aspect of the third metatarsal. Demineralized appearance of the bones with mostly mild multifocal osteoarthritis. Subtle dorsal cortical fracturing of the talar neck. TIBIA/FIBULA: No additional acute fracture or dislocation. IMPRESSION: 1. Acute distal fibular and medial malleolar fractures as above. 2. Acute nondisplaced third metatarsal fracture. 3. Subtle dorsal cortical fracture of the talar neck. ACT 112: Negative or not required by law. The above report was generated using voice recognition software. It may contain grammatical, syntax or spelling errors. Electronically signed by: Scot Cordoba M.D. 10/13/2023 6:57 AM Hip/Pelvis X-Ray 10/12/23 19:28 XR hip LT 2V w pelvis HISTORY: 72 years-old Female Fall, L hip pain acute pain in the pelvis and left hip status post fall COMPARISON: None TECHNIQUE: AP view the pelvis with 2 views of the left hip FINDINGS: There is mild osteoarthritis of the hips. No acute fracture, dislocation or avascular necrosis. Unremarkable soft tissues. IMPRESSION: No acute fracture or dislocation. ACT 112: Negative or not required by law. The above report was generated using voice recognition software. It may contain grammatical, syntax or spelling errors. Electronically signed by: Scot Cordoba M.D. 10/13/2023 6:53 AM Tibia/Fibula X-Ray 10/12/23 19:28 XR ankle LT min 3V routine, XR tibia fibula LT 2V, XR foot LT min 3V routine HISTORY: 72 years-old Female Fall, L lower extremity pain/injury acute pain of the foot, ankle, left/tibia and fibula status post fall COMPARISON: None TECHNIQUE: 2 views of the left ankle with 2 views of the left foot and 2 views of the left tibia and fibula. FINDINGS: ANKLE: There is acute comminuted distal fibular fracture which demonstrates mild apex medial angulation with 7 mm lateral displacement. There is an acute minimally displaced medial malleolar fracture. Moderate soft tissue swelling. Mild widening of the distal tibiofibular syndesmosis. Demineralized appearance of the bones. Limited exam secondary to positioning. FOOT: Acute nondisplaced fracture which is possibly incomplete involving the proximal metaphyseal aspect of the third metatarsal. Demineralized appearance of the bones with mostly mild multifocal osteoarthritis. Subtle dorsal cortical fracturing of the talar neck. TIBIA/FIBULA: No additional acute fracture or dislocation. IMPRESSION: 1. Acute distal fibular and medial malleolar fractures as above. 2. Acute nondisplaced third metatarsal fracture. 3. Subtle dorsal cortical fracture of the talar neck. ACT 112: Negative or not required by law. The above report was generated using voice recognition software. It may contain grammatical, syntax or spelling errors. Electronically signed by: Scot Cordoba M.D. 10/13/2023 6:57 AM Ankle X-Ray 10/14/23 08:17 XR ankle LT min 3V routine CLINICAL HISTORY: fracture, please do mortise view. Follow-up left ankle fracture. COMPARISON STUDY: Left ankle 10/13/2023. FINDINGS: No significant change in the mildly displaced bimalleolar left ankle fracture. Overlying splint obscures fine bony detail. No dislocation. The fractures demonstrate up to 3 mm of lateral displacement. There is diffuse soft tissue swelling. The left foot fractures seen on the prior radiograph are obscured by the cast material. IMPRESSION: No significant change in the mildly displaced bimalleolar left ankle fracture. ACT 112: Negative or not required by law. Electronically signed by: Adán Duncan M.D. 10/14/2023 8:46 AM
--- NOTE | 2023-10-16 11:49 | Hospitalist Progress Note ---
Date of Service October 16, 2023 Assessment & Plan (1) Closed left ankle fracture: Plan: 72-year-old female with past medical history significant for prediabetes, hypertension, angiomyolipoma of left kidney, restless leg syndrome, depression, anxiety, s/p fall on the ice on the left side and found to have left ankle fracture at presentation. She did not hit her head. No loss of consciousness. No blurred visions. No earache. No runny nose. No sore throat. No cough. No fevers. No chest pain. No shortness of breath. Currently no nausea. No abdominal pain. Normal bowel and bladder movements. Hemodynamics are stable. She is being managed for the following: Closed left ankle fracture Mechanical fall Having ambulatory dysfunction NPO for planned open reduction internal fixation of left ankle fracture with Dr. Espitia this afternoon Patient strongly desires return home today - advised by surgical and primary services to have OT/PT evaluation prior to dc Hypertension: Continue home amlodipine and atenolol. Will monitor History of depression/ Anxiety: Continue home buspirone and trazodone Prediabetes, A1c of 6.1. Encourage lifestyle modification. DVT prophylaxis: Lovenox held for surgery Disposition: Medical floor Full code Patient seen in collaboration with Dr. Parker. Please see addendum. I spent a total of 40 minutes coordinating, documenting, and providing care for this patient excluding time spent in the performance of separately billed services. Admission and Anticipated Discharge Date Admission Date: October 13, 2023 Supervising Physician Co-Signing Physician Notes Patient was seen and examined at bedside as a follow-up of closed left ankle fracture. Patient is hemodynamically stable and has a plan for OR today. Will follow labs in AM. I have seen and examined the patient and have discussed the case with the provider above. I agree with the assessment and plan as stated. Subjective Patient seen and examined in 382 bed 2. Patient is resting comfortably, not in any pain at rest and awaiting OR today. Anxious about returning home soon as possible. Denies any new symptoms overnight. No fever, chills, chest pain, shortness of breath, nausea, vomiting, abdominal pain, dysuria, diarrhea or constipation. Review of Systems Review of Systems: At least ten systems reviewed and negative except as noted in the HPI. Physical Exam Physical Exam: Gen: WD/WN, NAD, laying in bed resting comfortably, A&Ox3 HEENT: Normocephalic, atraumatic, conjunctivae moist, sclerae anicteric, mucous membranes moist Lung: Clear to Auscultation bilaterally, no wheezes/rales/rhonchi Heart: Regular rate, regular rhythm, no murmurs, rubs, or gallops Abdomen: Soft, NT, ND +BS x 4 Extremities: + LLE with dressing c/d/i. NVI Skin: Warm, no rash Results & Data Results & Data Vital Signs (Past 12 Hours) Vital Signs Temp Pulse Resp BP Pulse Ox O2 Del Method 10/16/23 07:26 37 C 72 16 127/70 94 Room Air Laboratory Results BMP 10/16/23 07:27 Creatinine 0.80 Diagnostic Findings Ankle X-Ray 10/12/23 19:28 XR ankle LT min 3V routine, XR tibia fibula LT 2V, XR foot LT min 3V routine HISTORY: 72 years-old Female Fall, L lower extremity pain/injury acute pain of the foot, ankle, left/tibia and fibula status post fall COMPARISON: None TECHNIQUE: 2 views of the left ankle with 2 views of the left foot and 2 views of the left tibia and fibula. FINDINGS: ANKLE: There is acute comminuted distal fibular fracture which demonstrates mild apex medial angulation with 7 mm lateral displacement. There is an acute minimally displaced medial malleolar fracture. Moderate soft tissue swelling. Mild widening of the distal tibiofibular syndesmosis. Demineralized appearance of the bones. Limited exam secondary to positioning. FOOT: Acute nondisplaced fracture which is possibly incomplete involving the proximal metaphyseal aspect of the third metatarsal. Demineralized appearance of the bones with mostly mild multifocal osteoarthritis. Subtle dorsal cortical fracturing of the talar neck. TIBIA/FIBULA: No additional acute fracture or dislocation. IMPRESSION: 1. Acute distal fibular and medial malleolar fractures as above. 2. Acute nondisplaced third metatarsal fracture. 3. Subtle dorsal cortical fracture of the talar neck. ACT 112: Negative or not required by law. The above report was generated using voice recognition software. It may contain grammatical, syntax or spelling errors. Electronically signed by: Scot Cordoba M.D. 10/13/2023 6:57 AM Foot X-Ray 10/12/23 19:28 XR ankle LT min 3V routine, XR tibia fibula LT 2V, XR foot LT min 3V routine HISTORY: 72 years-old Female Fall, L lower extremity pain/injury acute pain of the foot, ankle, left/tibia and fibula status post fall COMPARISON: None TECHNIQUE: 2 views of the left ankle with 2 views of the left foot and 2 views of the left tibia and fibula. FINDINGS: ANKLE: There is acute comminuted distal fibular fracture which demonstrates mild apex medial angulation with 7 mm lateral displacement. There is an acute minimally di splaced medial malleolar fracture. Moderate soft tissue swelling. Mild widening of the distal tibiofibular syndesmosis. Demineralized appearance of the bones. Limited exam secondary to positioning. FOOT: Acute nondisplaced fracture which is possibly incomplete involving the proximal metaphyseal aspect of the third metatarsal. Demineralized appearance of the bones with mostly mild multifocal osteoarthritis. Subtle dorsal cortical fracturing of the talar neck. TIBIA/FIBULA: No additional acute fracture or dislocation. IMPRESSION: 1. Acute distal fibular and medial malleolar fractures as above. 2. Acute nondisplaced third metatarsal fracture. 3. Subtle dorsal cortical fracture of the talar neck. ACT 112: Negative or not required by law. The above report was generated using voice recognition software. It may contain grammatical, syntax or spelling errors. Electronically signed by: Scot Cordoba M.D. 10/13/2023 6:57 AM Hip/Pelvis X-Ray 10/12/23 19:28 XR hip LT 2V w pelvis HISTORY: 72 years-old Female Fall, L hip pain acute pain in the pelvis and left hip status post fall COMPARISON: None TECHNIQUE: AP view the pelvis with 2 views of the left hip FINDINGS: There is mild osteoarthritis of the hips. No acute fracture, dislocation or avascular necrosis. Unremarkable soft tissues. IMPRESSION: No acute fracture or dislocation. ACT 112: Negative or not required by law. The above report was generated using voice recognition software. It may contain grammatical, syntax or spelling errors. Electronically signed by: Scot Cordoba M.D. 10/13/2023 6:53 AM Tibia/Fibula X-Ray 10/12/23 19:28 XR ankle LT min 3V routine, XR tibia fibula LT 2V, XR foot LT min 3V routine HISTORY: 72 years-old Female Fall, L lower extremity pain/injury acute pain of the foot, ankle, left/tibia and fibula status post fall COMPARISON: None TECHNIQUE: 2 views of the left ankle with 2 views of the left foot and 2 views of the left tibia and fibula. FINDINGS: ANKLE: There is acute comminuted distal fibular fracture which demonstrates mild apex medial angulation with 7 mm lateral displacement. There is an acute minimally displaced medial malleolar fracture. Moderate soft tissue swelling. Mild widening of the distal tibiofibular syndesmosis. Demineralized appearance of the bones. Limited exam secondary to positioning. FOOT: Acute nondisplaced fracture which is possibly incomplete involving the proximal metaphyseal aspect of the third metatarsal. Demineralized appearance of the niecy fidel with mostly mild multifocal osteoarthritis. Subtle dorsal cortical fracturing of the talar neck. TIBIA/FIBULA: No additional acute fracture or dislocation. IMPRESSION: 1. Acute distal fibular and medial malleolar fractures as above. 2. Acute nondisplaced third metatarsal fracture. 3. Subtle dorsal cortical fracture of the talar neck. ACT 112: Negative or not required by law. The above report was generated using voice recognition software. It may contain grammatical, syntax or spelling errors. Electronically signed by: Scot Cordoba M.D. 10/13/2023 6:57 AM Ankle X-Ray 10/13/23 17:07 XR ankle LT 2V CLINICAL HISTORY: left ankle fracture TECHNIQUE: 2 views of the left ankle were obtained. Comparison: Comparison is made to left ankle radiographs 10/12/2023 FINDINGS: An overlying cast is in place. Bimalleolar fractures are again seen. Soft tissue swelling is seen about the ankle. IMPRESSION: Bimalleolar fracture with interval placement of an overlying cast. ACT 112: Negative or not required by law. Electronically signed by: Manuel Roe M.D. 10/13/2023 7:48 PM Ankle X-Ray 10/14/23 08:17 XR ankle LT min 3V routine CLINICAL HISTORY: fracture, please do mortise view. Follow-up left ankle fracture. COMPARISON STUDY: Left ankle 10/13/2023. FINDINGS: No significant change in the mildly displaced bimalleolar left ankle fracture. Overlying splint obscures fine bony detail. No dislocation. The fractures demonstrate up to 3 mm of lateral displacement. There is diffuse soft tissue swelling. The left foot fractures seen on the prior radiograph are obscured by the cast material. IMPRESSION: No significant change in the mildly displaced bimalleolar left ankle fracture. ACT 112: Negative or not required by law. Electronically signed by: Adán Duncan M.D. 10/14/2023 8:46 AM
--- NOTE | 2023-10-16 12:05 | Anesthesiology Consultation ---
Date of Service October 16, 2023 Assessment & Plan (1) Encounter for pre-operative examination: Chart Review Chart Review: Acceptable Risk for Surgery History Surgery Operation Date: 10/16/23 13:30 Proposed Procedures p Left Bimalleolar Ankle Open Reduction Internal Fixation - Luke Espitia MD Height/Weight Height: 5 ft 4 in Weight: 74.3 kg Allergies Allergy/AdvReac Type Severity Reaction Status Date / Time No Known Allergies Allergy Unknown Verified 10/13/23 00:00 Medications Home Medications Medication Instructions Recorded Confirmed Last Taken amlodipine 5 mg tablet 5 mg PO QAM 10/12/23 10/12/23 10/12/23 atenolol 50 mg tablet 50 mg PO QAM 10/12/23 10/12/23 10/12/23 biotin 10 mg tablet 10 mg PO QAM 10/12/23 10/12/23 10/12/23 buspirone 10 mg tablet 10 mg PO AMPM 10/12/23 10/12/23 10/12/23 am hydroxyzine HCl 50 mg tablet 50 mg PO BID PRN anxiety and 10/12/23 10/12/23 10/11/23 insomnia hs icxxkymaepjs-bbwovjqe-wevqw acid 1 cap PO QAM 10/12/23 10/12/23 10/12/23 400 mcg-vitamin K 80 mcg capsule (Multi For Her 50 Plus) omega 1-kdq-pqb-fish oil 1,200 mg 1 cap PO QPM 10/12/23 10/12/23 10/11/23 (144 mg-216 mg) capsule (Fish Oil) peg 400-propylene glycol (PF) 0.4 1 drp ophthalmic (eye) BID PRN Dry 10/12/23 10/13/23 Unknown %-0.3 % eye drops in a dropperette Eyes (Systane (PF)) trazodone 100 mg tablet 100 mg PO HS 10/12/23 10/12/23 10/11/23 vitamins A,C,I-cspu-ecikhz 4,296 1 cap PO QPM 10/12/23 10/12/23 10/11/23 mcg-226 mg-90 mg capsule (PreserVision AREDS) calcium carbonate 500 mg calcium 500 mg PO QAM 10/13/23 10/13/23 10/12/23 (1,250 mg) tablet Active Medications Generic Name Dose Route Start Last Admin Trade Name Freq PRN Reason Stop Dose Admin Acetaminophen 650 mg 10/13/23 02:31 10/15/23 15:18 Acetaminophen 325 Mg Tab PO 11/12/23 02:30 650 mg Q4H PRN Administration pain/fever Amlodipine Besylate 5 mg 10/13/23 09:00 10/16/23 08:38 Amlodipine Besylate 5 Mg Tab PO 11/12/23 08:59 5 mg QAM OLMAN Administration Atenolol 50 mg 10/13/23 09:00 10/16/23 08:38 Atenolol 50 Mg Tablet PO 11/12/23 08:59 50 mg QAM OLMAN Administration Buspirone HCl 10 mg 10/13/23 09:00 10/16/23 08:37 Buspirone 5 Mg Tab PO 11/12/23 08:59 10 mg BID OLMAN Administration Calcium Carbonate 1,250 mg 10/13/23 09:00 10/16/23 08:38 Calcium Carbonate 1250mg Tab PO 11/12/23 08:59 1,250 mg QAM OLMAN Administration Enoxaparin Sodium 40 mg 10/13/23 06:00 10/15/23 05:55 Enoxaparin Inj 40 Mg/0.4 Ml Syr SQ 11/12/23 05:59 40 mg Q24H OLMAN Administration Hydroxyzine HCl 50 mg 10/13/23 02:31 10/15/23 21:27 Hydroxyzine Hcl 25 Mg Tab PO 11/12/23 02:30 50 mg BID PRN Administration anxiety and insomnia Multivitamins/Minerals 1 tab 10/13/23 09:00 10/16/23 08:37 Cerovite Adv Formula Tab PO 11/12/23 08:59 1 tab QAM OLMAN Administration Ondansetron HCl 4 mg 10/14/23 09:06 10/14/23 09:21 Ondansetron Inj 2 Mg/Ml 2 Ml Vial IV 11/13/23 09:05 4 mg Q6H PRN Administration Nausea And Vomiting Oxycodone HCl 5 mg 10/13/23 02:31 10/16/23 08:36 Oxycodone Hcl Ir 5 Mg Tab (Immediate Release) PO 10/27/23 02:30 5 mg Q6H PRN Administration Moderate Pain (Scale 4, 5, 6) Trazodone HCl 100 mg 10/13/23 21:00 10/15/23 21:28 Trazodone Hcl 100 Mg Tab PO 11/12/23 20:59 100 mg HS OLMAN Administration Past Medical History Medical History Hypertension Sleep disorder Anxiety Past Surgical History Surgical History History of orthopedic surgery Rotator cuff repair, wrist ORIF, hand fracture Social History Smoking Status: Former smoker Hx Alcohol Use: Yes Alcohol type: wine alcohol intake frequency: a few times a month Hx Substance Use: No substance use type: does not use Physical Exam Vital Signs Last Vital Signs Temp 37 C 10/16/23 07:26 Pulse 72 10/16/23 07:26 Resp 16 10/16/23 07:26 BP 127/70 10/16/23 07:26 Pulse Ox 94 10/16/23 07:26 O2 Del Method Room Air 10/16/23 07:26 Testing Laboratory Results 10/15/23 07:04 10/16/23 07:27 Hemoglobin A1c 6.1 % (4.5-5.6) H 10/13/23 07:20 Laboratory Tests 10/15/23 07:04 Potassium 4.2 Electrocardiogram Date: 10/14/23 Findings: + NSST changes and + SB @ (59)
[2023-10-16] MEDS ORDERED: ONDANSETRON INJ 2 MG/ML 2 ML VIAL ONE (12:43)
[2023-10-16] MEDS ORDERED: DEXAMETHASONE SOD INJ 4 MG/ML VIAL ONE (12:43)
[2023-10-16] MEDS ORDERED: PROPOFOL IV EMULSION 10 MG/ML 20 ML VIAL IV ONE (12:43)
[2023-10-16] MEDS ORDERED: MIDAZOLAM HCL 1 MG/ML 2ML VIAL ONE ×2 (12:43→13:02)
[2023-10-16] MEDS ORDERED: LIDOCAINE 2% 2 ML VIAL/AMP(20MG/ML) INFIL ONE (12:43)
[2023-10-16] MEDS ORDERED: fentaNYL citrate PF 100 MCG/2 ML VIAL ONE ×2 (12:44→14:49)
[2023-10-16] MEDS ORDERED: fentaNYL citrate PF 100 MCG/2 ML VIAL IV PRN (12:55)
[2023-10-16] MEDS ORDERED: ATROPINE SULFATE 0.1 MG/ML 10ML SYR IV PRN (12:55)
[2023-10-16] MEDS ORDERED: KETOROLAC 30 MG/ML VIAL IV PRN (12:55)
[2023-10-16] MEDS ORDERED: PROMETHAZINE HCL 6.25 MG in SODIUM CHLORIDE 0.9% 50 ML IV PRN (12:55)
--- NOTE | 2023-10-16 13:12 | History & Physical Bridge Note ---
Date of Service October 16, 2023 History & Physical Bridge Note I have examined the patient, reviewed the History & Physical and in the interval since the performance of the History & Physical I have noted the following changes of clinical significance: no changes noted
[2023-10-16] MEDS: ceFAZolin 2000MG 2,000 MG/15 ML SYR IV SCH ×2 (13:28→21:14)
[2023-10-16] MEDS ORDERED: ePHEDrine sulfate 50 MG/ML AMP ONE (14:49)
--- NOTE | 2023-10-16 16:23 | Operative Report ---
Post Operative Report Pre & Post Diagnosis Operation Date: 10/16/23 13:30 Pre-Op Diagnosis: Closed left ankle fracture Post-Op Diagnosis: Closed left ankle fracture I identified the patient and participated in the time-out.: Yes Procedure Operation Date: 10/16/23 13:30 Actual Procedures p Left Bimalleolar Ankle Open Reduction Internal Fixation(Left) - Luke Espitia MD Surgeon Traci Bledsoe PA-C House Mother Traci Bledsoe PA-C Estimated Blood Loss 10 Findings Consistent with Post-Op Diagnosis Specimens none Description of Procedure Pt was taken to operating room and properly positioned for procedure. Refer to anesthesia's note for anesthesia used. Pt was given pre-op antibiotics. Prepped and draped in sterile fashion. I was present during the entire case and assisted with positioning, instrumentation, closure and dressings. Please see surgeon's op report for further detail. Pt was awake and transferred to PACU in stable condition and will be transferred back to medicine service. I attest to the content of the Intraoperative Record and any orders documented therein. Any exceptions are noted below.
--- NOTE | 2023-10-16 16:53 | Fluoroscopy Report ---
FL ankle LT min 3V RTN CLINICAL HISTORY: LEFT ORIF ANKLE COMPARISON STUDY: Left ankle 10/14/2023. FLUOROSCOPY TIME: 48 seconds FLUOROSCOPY IMAGES: 4 Ka,r: 0.8 mGy FINDINGS: Status post internal fixation of the bimalleolar left ankle fracture with cortical plate an d screws. The hardware is intact. Alignment is near-anatomic. IMPRESSION: Fluoroscopic assistance as above. ACT 112: Negative or not required by law. Electronically signed by: Adán Duncan M.D. 10/16/2023 4:51 PM
--- NOTE | 2023-10-16 17:08 | Operative Report ---
Post Operative Report Pre & Post Diagnosis Operation Date: 10/16/23 13:30 Pre-Op Diagnosis: Bimalleolar fracture of the left ankle Post-Op Diagnosis: Bimalleolar fracture of the left ankle with syndesmotic disruption I identified the patient and participated in the time-out.: Yes Procedure Operation Date: 10/16/23 13:30 Actual Procedures p Left Bimalleolar Ankle Open Reduction Internal FixationWith ORIF of syndesmosis.(Left) - Luke Espitia MD Surgeon Luke Espitia MD Power Line Installer And Repairer Traci Bledsoe PA-C Estimated Blood Loss 10 Findings Consistent with Post-Op Diagnosis Specimens None Anesthesia Type General Regional Complications none Disposition Accompanied Patient To Recovery: No Disposition: Recovery Room Indications Antionette is 73. She fell several days ago injuring her left ankle. She has been admitted to the hospital because she could not ambulate safely and maintain a nonweightbearing status. Radiographs show a bimalleolar fracture. This is a high lateral malleolus fracture with radiographically intact ankle mortise and syndesmosis. She has been evaluated preoperatively and her swelling and skin condition are acceptable for surgical intervention and she wishes to proceed wi ORIF which is recommended. She has been seen and evaluated by medicine. Description of Procedure Informed consent obtained. Patient identified. She identified the operative site as the left ankle. I marked with my initials. A preoperative surgical timeout was performed. A preop dose of IV antibiotics given. She was taken to the operative room positioned supine on the OR table. A tourniquet was applied to the left thigh. A bone foam was placed under the left leg. The leg was scrubbed and then prepped and draped in usual sterile fashion. There was mild swelling and some bruising. Skin wrinkles were present and swelling was considered mild. No blisters. DVT prophylaxis intraoperatively with SCDs. Postoperatively mobility Lovenox and mechanical devices. Fluoroscopic guidance was utilized throughout the surgical procedure. The ankle was grossly unstable. A bump was placed under her left hip. Bony prominences were inspected and padded. Limb exsanguinated with the Esmarch. Tourniquet plated to 250 mmHg. An extensile lateral incision was made about 15 cm in length. This began at the tip of the fibula and proceeded proximal in line with the shaft of the fibula. Blunt dissection was performed down to the subcutaneous tissues to the level of the periosteum. The superficial peroneal nerve was not encountered. A s tructure which I initially thought was a diminutive superficial peroneal nerve turned out later to be a vein which was cauterized. Subperiosteal exposure of the fracture site was performed and minimal periosteal dissection was performed along the shaft shaft of the fibula as needed for retractor placement and surgical exposure. The anterior colliculus of the distal fibula where the attachment of the anterior tibiofibular ligaments are was avulsed with a sybil like wafer of bone. At wound closure this was reapproximated with sutures as best as possible. The fracture site was exposed and cleaned of hematoma then anatomically reduced. The fracture was above the ankle mortise. It was between the coronal and sagittal planes and orientation. I initially attempted to fixate this with a interfrag screw in the typical fashion from proximal medial oriented to distal lateral. However this did not gain substantial purchase probably due to the orientation. I then took a second screw which was oriented more perpendicular to the plane of the fracture from the distal posterior and lateral to proximal anterior and medial. This gave good fixation. These were 3.5 mm bicortical lag screws. I then pre-bent a 10 hole one third tubular locking plate. I aligned so that we had adequate fixation above and below and room for syndesmosis screw. The plate was initially fixed distally with a u nicortical 4.0 cancellous screw and proximally with a 3.5 mm bicortical screw. Fluoroscopic imaging confirmed good positioning of the hardware and reduction of the fracture. I then went ahead and inserted 3 more bicortical locking screws proximally and an additional distal unicortical locking screw. The 4.0 cancellous screw was exchanged for a unicortical locking screw. Then turned attention medially. An 8 cm longitudinal incision was made over the medial malleolus. The saphenous nerve and vein were immediately under the skin which in general was then without a large subcutaneous layer. The saphenous was dissected out and retracted with the anterior skin flap. The periosteum was divided at the level of the fracture site and subperiosteal exposure of the fracture was performed. The fracture site was irrigated and cleaned of hematoma. The posterior tib tendon was identified posteriorly and was intact. There was mild cortical comminution posteriorly. The fracture was then desmond omically reduced and pinned with 2 wires which were adjusted x 2 to the appropriate position fluoroscopically. They were then overreamed and screws of 50 mm in length 4.0 mm in diameter and long thread length were introduced with hand power. The posterior screw was about 5 mm away from the posterior tib tendon. A washer was not utilized on the posterior 1 but I did use a washer on the anterior screw. The ankle mortise was aligned. Fractures were anatomically reduced. There was no posterior fracture. I then went ahead and stressed the syndesmosis which showed several millimeters of laxity. The ankle was placed into maximum dorsiflexion with a clamp across the syndesmosis. I then placed a 3 cortical 3.5 millimeter screw across the syndesmosis for positioning which stabilized syndesmosis. The tourniquet was let down after 2 hours of inflation and meticulous hemostasis was performed. The soft tissues were kept moist throughout the surgical procedure. Meticulous hemostasis performed. Medially the periosteum was closed over the fracture site. Business Objects Consultant fluoroscopic images were obtained. The skin was closed with 4-0 Vicryl and trinity. On the lateral side the periosteum and subcutaneous tissues were approximated over the plate and screws with 2-0 Vicryl followed by a 4-0 Vicryl for subcuticular stitch and trinity. Leg cleaned with wet and dry sponges and a bulky soft sterile dressing was applied Xeroform 4 x 4's ABD soft wrap and a 3 inch Ortho-Glass posterior splint with the ankle in neutral position and an Tuan wrap. She was awakened from anesthesia without difficulty and taken to the recovery room in stable condition. There were no specimens or complications counts were correct blood loss estimated to be 10 cc. At the conclusion the operation spoke to patient's informed him my findings postop instructions were discussed. Will resume Lovenox the morning after surgery. She will be nonweightbearing for 6 weeks. Wound check with Traci next week and follow-up with me in 2 weeks for staple removal and to begin physical therapy. Synthes hardware was utilized. 4.0 cancellous screws and small frag locking plate. All screws were checked for tightness. I attest to the content of the Intraoperative Record and any orders documented therein. Any exceptions are noted below.
--- NOTE | 2023-10-16 17:21 | Operative Report ---
Post Operative Report Pre & Post Diagnosis Operation Date: 10/16/23 13:30 Pre-Op Diagnosis: Closed left ankle fracture Post-Op Diagnosis: Closed left ankle fracture I identified the patient and participated in the time-out.: Yes Procedure Operation Date: 10/16/23 13:30 Actual Procedures p Left Bimalleolar Ankle Open Reduction Internal Fixation(Left) - Luke Espitia MD Surgeon Luke Espitia MD Stone Finisher Traci Bledsoe PA-C Estimated Blood Loss 10 Findings Consistent with Post-Op Diagnosis Same as postoperative diagnosis Specimens None Description of Procedure Please see detailed operative note. I attest to the content of the Intraoperative Record and any orders documented therein. Any exceptions are noted below.
[2023-10-16] MEDS: LORazepam 0.5 MG in SYRINGE 0.25 ML IV STA (17:58)
--- NOTE | 2023-10-16 18:29 | Anesthesiology Progress Note ---
Date of Service October 16, 2023 Anesthesia Post Procedure Vital Signs Vital Signs: Temp Pulse Pulse Resp BP BP Pulse Ox 10/16/23 18:10 36.5 C 76 22 137/75 100 10/16/23 18:00 75 21 142/73 H 99 10/16/23 17:50 81 23 162/70 H 100 10/16/23 17:40 36.4 C L 79 16 135/76 99 10/16/23 17:30 78 16 140/62 100 10/16/23 17:20 74 15 151/62 H 100 10/16/23 17:14 36.3 C L 82 18 158/78 H 99 10/16/23 12:32 36.7 C 65 18 157/75 H 97 10/16/23 07:26 37 C 72 16 127/70 94 10/15/23 19:38 36.7 C 67 16 169/78 H 95 O2 Del Method O2 Flow Rate 10/16/23 18:10 Room Air 10/16/23 18:00 Room Air 10/16/23 17:50 Room Air 10/16/23 17:40 Room Air 10/16/23 17:30 Room Air 10/16/23 17:20 Oxymask 6 10/16/23 17:14 Oxymask 6 10/16/23 12:32 Room Air 10/16/23 07:26 Room Air 10/15/23 19:38 Room Air Pain Intensity Head: Pain Intensity: 5 Left Ankle: Pain Intensity: 1 Transfer of Care Handoff Completed per policy Notes Mental Status: alert / awake / arousable and participated in evaluation Patient Amnestic to Procedure: Yes Nausea / Vomiting: adequately controlled Pain: adequately controlled Airway Patency, RR, SpO2: stable & adequate BP & HR: stable & adequate Hydration State: stable & adequate Anesthetic Complications: no major complications apparent and Pt Satisfied with anesthetic care
[2023-10-16] MEDS: LORazepam 2 MG/1 ML VIAL ONE (18:44)
[2023-10-16] MEDS: LIDOCAINE 1%/EPINEPHRINE 1:100,000 20 ML VIAL ONE ×2 (18:44)
[2023-10-16] MEDS: BUPIVACAINE/EPINEPHRINE 0.5% MPF 1:200,000 30 ML VIAL ONE (18:44)
[2023-10-17 07:09] LABS: Hematocrit (blood only) 33.6 % (37.0-47.0); Hemoglobin 11.5 g/dl (12.0-16.0); Mean Corpuscular Hemoglobin 30.3 pg (25.0-34.0); Mean Corpuscular Hgb Conc 34.2 g/dL (32.0-36.0); Mean Corpuscular Volume 88.4 fL (80.0-100.0); Mean Platelet Volume 10.1 fL (9.4-12.4); Platelet Count 298 K/uL (130-400); RDW Coefficient of Variation 14.2 % (11.5-14.5); RDW Standard Deviation 45.7 fL (36.4-46.3); White Blood Count 13.63 K/ul (4.8-10.8)
[2023-10-17 07:20] LABS: BUN Creatinine Ratio 22.7 (10-20); Calcium 9.1 mg/dl (8.6-10.3); Est GFR (African American) 91.7 ml/min; Est GFR (Non-African American) 79.1 ml/min; Potassium 3.8 mmol/L (3.5-5.1)
--- NOTE | 2023-10-17 10:42 | Orthopedic Progress Note ---
Date of Service October 17, 2023 Doing well. Pain is well-controlled. Has not been seen by PT yet. She is breathing well and tolerating p.o.She reports continued burning in her heel which was existing preoperatively. She also notes numbness and tingling in her foot. Assessment & Plan (1) Closed left ankle fracture: Plan: Findings discussed. Surgical findings reviewed. If she is safe with PT today she could be discharged home. I stopped the Lovenox. The dose was not given today yet. I changed to Eliquis 2.5 mg p.o. twice daily which should be continued for at least 2 weeks postop. Recommend elevation and icing. She is to be nonweightbearing on the left leg. She will follow-up with Traci next week and with me in 2 weeks to begin PT. She will need to discharged home on pain medications and stool softener. If there is any problems with pain fevers swelling or any other problems or questions please call my office or go to ER. Discussed some future plans regarding what sounds like a foot drop secondary to sciatica and possible plantar fasciitis. I recommend she continue to pursue the spinal evaluation. Hold on the foot evaluation with podiatry until I can review with her. Admission and Anticipated Discharge Date Admission Date: October 13, 2023 Physical Exam Physical Exam: Foot is warm with capillary refill less than 2 seconds DP pulses 1+. The splint is loosened. The Tuan wrap is redone. Padding is applied around the margins of the splint. She has 5- out of 5 ankle and toe plantarflexion however today she does not have any significant active ankle or toe dorsiflexion, including big toe and lesser toes. She has limited if any eversion and inversion. Swelling is minimal she reports paresthesias on the dorsum of the foot but intact sensation in the toes on and on the plantar forefoot. Results & Data Vital Signs (Past 12 Hours) Vital Signs Temp Pulse Resp BP Pulse Ox O2 Del Method 10/17/23 08:56 37.0 C 62 18 127/69 97 Room Air 10/17/23 04:28 37.2 C 79 14 119/65 95 Room Air Laboratory Results Laboratory Results WBC 13.63 K/ul (4.8-10.8) H 10/17/23 05:53 RBC 3.80 M/uL (4.20-5.40) L 10/17/23 05:53 Hgb 11.5 g/dl (12.0-16.0) L 10/17/23 05:53 Hct 33.6 % (37.0-47.0) L 10/17/23 05:53 MCV 88.4 fL (80.0-100.0) 10/17/23 05:53 MCH 30.3 pg (25.0-34.0) 10/17/23 05:53 MCHC 34.2 g/dL (32.0-36.0) 10/17/23 05:53 RDW Std Deviation 45.7 fL (36.4-46.3) 10/17/23 05:53 RDW Coeff of Bj 14.2 % (11.5-14.5) 10/17/23 05:53 Plt Count 298 K/uL (130-400) 10/17/23 05:53 MPV 10.1 fL (9.4-12.4) 10/17/23 05:53 Immature Gran % (Auto) 0.2 % 10/13/23 07:20 Neut % (Auto) 56.5 % 10/13/23 07:20 Lymph % (Auto) 32.5 % 10/13/23 07:20 [place] % (Auto) 8.2 % 10/13/23 07:20 Eos % (Auto) 1.7 % 10/13/23 07:20 Baso % (Auto) 0.9 % 10/13/23 07:20 Neut # (Auto) 4.97 K/uL (1.40-6.50) 10/13/23 07:20 Lymph # (Auto) 2.86 K/uL (1.20-3.40) 10/13/23 07:20 [place] # (Auto) 0.72 K/uL (0.11-0.59) H 10/13/23 07:20 Eos # (Auto) 0.15 K/uL (0.00-0.50) 10/13/23 07:20 Baso # (Auto) 0.08 K/uL (0.00-0.20) 10/13/23 07:20 Immature Gran # (Auto) 0.02 K/uL (0.01-0.20) 10/13/23 07:20 Sodium 137 mmol/L (136-145) 10/17/23 05:53 Potassium 3.8 mmol/L (3.5-5.1) 10/17/23 05:53 Chloride 104 mmol/L (98-107) 10/17/23 05:53 Carbon Dioxide 25 mmol/L (21-32) 10/17/23 05:53 Anion Gap 8 (3-11) 10/17/23 05:53 BUN 17 mg/dl (6-23) 10/17/23 05:53 Creatinine 0.75 mg/dl (0.6-1.2) 10/17/23 05:53 Est Cr Clr Drug Dosing 66.0 ml/min 10/17/23 05:53 Est GFR ( Amer) 91.7 ml/min 10/17/23 05:53 Est GFR (Non-Af Amer) 79.1 ml/min 10/17/23 05:53 BUN/Creatinine Ratio 22.7 (10-20) H 10/17/23 05:53 Glucose 111 mg/dl (70-99(Fasting)) H 10/17/23 05:53 Estimat Average Glucose 128 mg/dl 10/13/23 07:20 Hemoglobin A1c 6.1 % (4.5-5.6) H 10/13/23 07:20 Calcium 9.1 mg/dl (8.6-10.3) 10/17/23 05:53 Phosphorus 3.3 mg/dl (2.5-4.9) 10/15/23 07:04 Magnesium 2.0 mg/dl (1.7-2.4) 10/15/23 07:04 Total Bilirubin 0.5 mg/dl (0.2-1.0) 10/13/23 00:06 AST 23 U/L (13-39) 10/13/23 00:06 ALT 19 U/L (7-52) 10/13/23 00:06 Alkaline Phosphatase 62 U/L (34-104) 10/13/23 00:06 Total Protein 7.7 gm/dl (6.0-8.3) 10/13/23 00:06 Albumin 4.4 gm/dl (3.4-5.0) 10/13/23 00:06 Globulin 3.3 gm/dl (2.5-4.0) 10/13/23 00:06 Albumin/Globulin Ratio 1.3 (0.9-2) 10/13/23 00:06 25-OH Vitamin D Total 36.8 ng/ml (30-100) 10/14/23 07:33 Impressions Foot X-Ray 10/12/23 19:28 XR ankle LT min 3V routine, XR tibia fibula LT 2V, XR foot LT min 3V routine HISTORY: 72 years-old Female Fall, L lower extremity pain/injury acute pain of the foot, ankle, left/tibia and fibula status post fall COMPARISON: None TECHNIQUE: 2 views of the left ankle with 2 views of the left foot and 2 views of the left tibia and fibula. FINDINGS: ANKLE: There is acute comminuted distal fibular fracture which demonstrates mild apex medial angulation with 7 mm lateral displacement. There is an acute minimally displaced medial malleolar fracture. Moderate soft tissue swelling. Mild widening of the distal tibiofibular syndesmosis. Demineralized appearance of the bones. Limited exam secondary to positioning. FOOT: Acute nondisplaced fracture which is possibly incomplete involving the proximal metaphyseal aspect of the third metatarsal. Demineralized appearance of the bones with mostly mild multifocal osteoarthritis. Subtle dorsal cortical fracturing of the talar neck. TIBIA/FIBULA: No additional acute fracture or dislocation. IMPRESSION: 1. Acute distal fibular and medial malleolar fractures as above. 2. Acute nondisplaced third metatarsal fracture. 3. Subtle dorsal cortical fracture of the talar neck. ACT 112: Negative or not required by law. The above report was generated using voice recognition software. It may contain grammatical, syntax or spelling errors. Electronically signed by: Scot Cordoba M.D. 10/13/2023 6:57 AM Hip/Pelvis X-Ray 10/12/23 19:28 XR hip LT 2V w pelvis HISTORY: 72 years-old Female Fall, L hip pain acute pain in the pelvis and left hip status post fall COMPARISON: None TECHNIQUE: AP view the pelvis with 2 views of the left hip FINDINGS: There is mild osteoarthritis of the hips. No acute fracture, dislocation or avascular necrosis. Unremarkable soft tissues. IMPRESSION: No acute fracture or dislocation. ACT 112: Negative or not required by law. The above report was generated using voice recognition software. It may contain grammatical, syntax or spelling errors. Electronically signed by: Scot Cordoba M.D. 10/13/2023 6:53 AM Tibia/Fibula X-Ray 10/12/23 19:28 XR ankle LT min 3V routine, XR tibia fibula LT 2V, XR foot LT min 3V routine HISTORY: 72 years-old Female Fall, L lower extremity pain/injury acute pain of the foot, ankle, left/tibia and fibula status post fall COMPARISON: None TECHNIQUE: 2 views of the left ankle with 2 views of the left foot and 2 views of the left tibia and fibula. FINDINGS: ANKLE: There is acute comminuted distal fibular fracture which demonstrates mild apex medial angulation with 7 mm lateral displacement. There is an acute minimally displaced medial malleolar fracture. Moderate soft tissue swelling. Mild widening of the distal tibiofibular syndesmosis. Demineralized appearance of the bones. Limited exam secondary to positioning. FOOT: Acute nondisplaced fracture which is possibly incomplete involving the proximal metaphyseal aspect of the third metatarsal. Demineralized appearance of the bones with mostly mild multifocal osteoarthritis. Subtle dorsal cortical fracturing of the talar neck. TIBIA/FIBULA: No additional acute fracture or dislocation. IMPRESSION: 1. Acute distal fibular and medial malleolar fractures as above. 2. Acute nondisplaced third metatarsal fracture. 3. Subtle dorsal cortical fracture of the talar neck. ACT 112: Negative or not required by law. The above report was generated using voice recognition software. It may contain grammatical, syntax or spelling errors. Electronically signed by: Scot Cordoba M.D. 10/13/2023 6:57 AM Ankle X-Ray 10/16/23 13:30 FL ankle LT min 3V RTN CLINICAL HISTORY: LEFT ORIF ANKLE COMPARISON STUDY: Left ankle 10/14/2023. FLUOROSCOPY TIME: 48 seconds FLUOROSCOPY IMAGES: 4 Ka,r: 0.8 mGy FINDINGS: Status post internal fixation of the bimalleolar left ankle fracture with cortical plate and screws. The hardware is intact. Alignment is near-an atomic. IMPRESSION: Fluoroscopic assistance as above. ACT 112: Negative or not required by law. Electronically signed by: Adán Duncan M.D. 10/16/2023 4:51 PM
[2023-10-17] MEDS: APIXABAN 2.5 MG TAB PO SCH (11:17)
--- NOTE | 2023-10-17 12:37 | Discharge Summary ---
Date of Service October 17, 2023 Admission HPI Per Admitting Provider 72-year-old female with past medical history significant for prediabetes, hypertension, angiomyolipoma of left kidney, restless leg syndrome, depression, anxiety, s/p fall on the ice on the left side and found to have left ankle fracture. Patient states she is unsteady because she thinks she has plantar fasciitis of the left foot. States that she is prone to fall. She did not hit her head. No loss of consciousness. Currently has some headache says because she did not eat anything today. No blurred visions. No earache. No runny nose. No sore throat. No cough. No fevers. No chest pain. No shortness of breath. Currently no nausea. No abdominal pain. Normal bowel and bladder movements. Hemodynamics are stable. Past medical history. As mentioned above Past surgical history. Right shoulder arthroscopy. Breast implants. Colonoscopy. EGD. Mandible surgery. Bilateral cataract removal. Social history. . Quit smoking . Smoked 0.7 pack a day for 41 years. Alcohol rarely. No drug use. Family history. Father had alcoholism. Hypertension. Cholesterol. Mother had hypertension. Alzheimer's disease. Brother has seizures. Admission Exam Per Admitting Provider General- Not in distress Head- atraumatic Eyes- PERRL. ENT- oropharynx clear Neck- supple, no JVD. Lungs- clear to auscultation no wheezing or crackles Heart- regular rhythm; no murmur, no gallop. Abdomen- normal bowel sounds, soft, nontender, no distension. Extremities- Left lower extremity in cast. Neuro- alert, oriented PERRL, no facial palsy; no dysarthria; obeys simple commands. Skin- warm & dry Principal Diagnosis Closed left ankle fracture Mechanical fall Discharge Exam General- Not in distress Head- atraumatic Eyes- PERRL. ENT- oropharynx clear Neck- supple, no JVD. Lungs- clear to auscultation no wheezing or crackles Heart- regular rhythm; no murmur, no gallop. Abdomen- normal bowel sounds, soft, nontender, no distension. Extremities- Left lower extremity in splint. Distal NV status wnl Neuro- alert, oriented PERRL, no facial palsy; no dysarthria; obeys simple commands. Skin- warm & dry Discharge Data Allergies Allergy/AdvReac Type Severity Reaction Status Date / Time No Known Allergies Allergy Unknown Verified 10/13/23 00:00 Consultations 10/12/23 23:36 ED Decision to Admit Stat 10/13/23 08:00 Consult Orthopedic Surgery Routine Procedures Performed Operation Date: 10/16/23 13:30 Actual Procedures p Left Bimalleolar Ankle Open Reduction Internal Fixation(Left) - Luke Espitia MD Ordered Studies 10/16/23 12:05 US - OR guided needle placemen Routine 10/16/23 13:30 FL ankle LT min 3V RTN Routine Hospital Course (1) Closed left ankle fracture: 72-year-old female with past medical history significant for prediabetes, hypertension, angiomyolipoma of left kidney, restless leg syndrome, depression, anxiety, s/p fall on the ice on the left side and found to have left ankle fracture at presentation. She did not hit her head. No loss of consciousness. No blurred visions. No earache. No runny nose. No sore throat. No cough. No fevers. No chest pain. No shortness of breath. Currently no nausea. No abdominal pain. Normal bowel and bladder movements. Hemodynamics are stable. She was managed for the following: Closed left ankle fracture Mechanical fall Having ambulatory dysfunction Status post left bimalleolar ankle open reduction and internal fixation. Discussed with orthopedic, plan for Eliquis for 2 weeks upon discharge. Patient to follow-up with orthopedics office in 1 week time of discharge. Continue with pain management and bowel regimen Patient hemodynamically stable and strongly would like to go home today. Discussed with PT, safe to discharge home. Patient's is very much willing to help her. Hypertension: Continue home amlodipine and atenolol. Will monitor History of depression/ Anxiety: Continue home buspirone and trazodone Prediabetes, A1c of 6.1. Encourage lifestyle modification. DVT prophylaxis: Eliquis on discharge for 2 weeks. Disposition: Medical floor Full code Patient is being discharged to home with following instruction at the point of discharge: Follow-up with your primary care physician within a week time and likely you will need labs CBC/CMP/magnesium/phosphorus. Follow-up with orthopedic office in a week time. While using pain medication, continue with bowel regimen to prevent constipation. Take your medications as prescribed. Please make sure that you are able to get your medications today by calling your pharmacy before you leave the hospital so that your treatment continuity is not broken. Home Health Attestation I certify that this patient is under my care and that I, or a physicians colt norman working with me, had a face to-face encounter that meets the home health [id number] encounter requirements with this patient. The encounter with the patient was in whole, or in part, for the following medical condition, which is the primary reason for home health care (list medical condition): I certify that, based on my findings, the following services are medically necessary home health services: My clinical findings support the need for the above services because: Further, I certify that my clinical findings support that this patient is homebound (i.e. absences from home require considerable and taxing effort and are for medical reasons or confucianist services or infrequently or of short duration when for other reasons) because: Certification for Home Health Services: Based on the above findings, I certify that this patient is confined to the home and needs intermittent detention care, physical therapy and/or speech therapy or continues to need occupational therapy. The patient is under my care, and I have initiated the establishment of the plan of care. This patient will be followed by a physician who will periodically review the plan of care. Total Time Total Time Spent Total Time Spent (In Minutes): 45 Discharge Plan Discharge Items Patient Disposition: Home - Self-Care Reason For Visit: FALL, LEFT ANKLE FRACTURE, AMBULATORY DYSFUNCTION Discharge Diagnosis: Closed left ankle fracture Mechanical fall Condition on Discharge: Good Activity: As commented below Non-emergency contact: Surgeon Call non-emergency contact if: you have any medication questions, your symptoms worsen, your pain is not controlled, your temperature is above 101, your wound has increased redness and your wound has increased drainage Follow-up/Referrals: Magy Valles DO [Primary Care Provider] - (Date & Time 10/23/2023 10:00 AM Provider Andie Walker CRNP Department [facility] ) Traci Bledsoe PA-C [Physician Deputy Editor In Chief] - 10/21/23 3:15 pm Diet: Heart Healthy Addtl Attending Provider Instructions: Follow-up with your primary care physician within a week time and likely you w ill need labs CBC/CMP/magnesium/phosphorus. Follow-up with orthopedic office in a week time. While using pain medication, continue with bowel regimen to prevent constipation. Take your medications as prescribed. Please make sure that you are able to get your medications today by calling your pharmacy before you leave the hospital so that your treatment continuity is not broken. Addtl Fourth Mate Provider Instructions: Orthopedic Instructions: - Do not put weight on left leg - Use walker, knee scooter, wheelchair - Ice to left ankle as needed for pain/swelling - Elevate left leg above your heart to relieve pain/swelling - Take blood thinner to prevent blood clots as prescribed - Pain medication as prescribed - Keep splint on left ankle at all times. Keep it clean and dry. - Follow up as scheduled with [facility] in 1 week with Traci Bledsoe PA-C for a wound check and dressing change. You will be placed back into a splint at that time. You will follow up with Dr Espitia in the office in 2 weeks for suture/staple removal. - Call [phone] with any increased pain, swelling, drainage from incisions, fevers or chills, or need to reschedule appointment. Pending Studies at Discharge: No Stand-Alone Forms: My [facility] [employer], Smoking Cessation Medications and DC Order Prescriptions: New Eliquis 2.5 mg Tablet 2.5 mg PO BID 14 Days Qty: 28 0RF oxycodone 5 mg Tablet 5 mg PO Q8H PRN (Reason: severe pain (scale score 7-10)) 5 Days Qty: 15 0RF polyethylene glycol 3350 [Miralax] 17 gram Powder In Packet 17 g PO DAILY PRN (Reason: laxative effect) Qty: 14 0RF Continued hydroxyzine HCl 50 mg tablet 50 mg PO BID PRN (Reason: anxiety and insomnia) atenolol 50 mg tablet 50 mg PO QAM amlodipine 5 mg tablet 5 mg PO QAM trazodone 100 mg tablet 100 mg PO HS buspirone 10 mg tablet 10 mg PO AMPM omega 3-zex-dwi-fish oil [Fish Oil] 1,200 (144-216) mg Capsule 1 cap PO QPM Multi For Her 50 Plus 400-80 mcg Capsule 1 cap PO QAM PreserVision AREDS 4,296 mcg-226 mg-90 mg Capsule 1 cap PO QPM biotin 10 mg Tablet 10 mg PO QAM Systane (PF) 0.4-0.3 % Dropperette 1 drp OPHTHALMIC (EYE) BID PRN (Reason: Dry Eyes) calcium carbonate [Calcium 500] 500 mg calcium (1,250 mg) Tablet 500 mg PO QAM Discharge Orders: Discharge Order (Routine); Ordered 10/17/23 Ordered By: Arsenio Vizcaino/Other Patient Handouts: Prediabetes, 5 Steps for Eating Healthier Admission Data Admit Date/Time: 10/13/23 00:56 Attending Provider: Arsenio Parker Admit Provider: Ranulfo Hayes Primary Care Provider: Magy Valles Other Providers: [facility]; Ranulfo Hayes; Luke Espitia
[2023-10-17] MEDS: HYDROmorphone INJ 0.5 MG/0.5 ML SYR IV PRN (12:48)
== END 2023-10-17 14:33 | disposition home health service (06) | DRG 494 ==
LOC: ED 17:41 → EDINP 10-13 00:56 → SUATTDRO 10-13 00:56 → 3N 10-13 02:31